=== PATIENT | female | born 2000 | race Hispanic/Latino ===

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

== ENCOUNTER 2023-07-09 13:21 | Day surgery (SDC) | payer OTHER ==
--- OUTSIDE RECORDS SUMMARY | 2023-07-09 13:26 | XMS REPORT | Continuity of Care Document ---
Author Name Unknown Address [address] [facility] [address] [place] [address] [facility] thconnect Address [address] [facility] [address] [place] [address] Care Team Providers Care Manufacturing Business Analyst Name Role Phone Pcp, Patient Does Not Have A Primary Care Physic jt SPRING NEWMAN Attending Clinician Unavailable Domonique Lerma RN Attending Clinician Unavailable Spring Newman MD Attending Clinician [phone] Doctor Unassigned, Mildred Attending Clinician U darleen Neely MD, Jim Baxter Attending Clinician + [phone] Walker Lopez MD Attending Clinician [phone] Tito Malone CRNA Attending Clinician + [phone], [facility] Attending Clinician Unavailable Emma Hu NP Attending Clinician + [phone] EZRA GOYAL Attending Clinician Unavailable EZRA GOYAL Attending Clinician Unavailable Ultrasound, Ang-Mfm Attending Clinician Unavaila ble Lab, Ang - Db Attending Clinician Unavailable Dcikson Leslie Attending Clinician [phone] LISBETH SANTANA Attending Clinician Unavaila Lisbeth Joseph Attending Clinician [phone] Deon Morales Attending Clinician [phone] DICKSON ANTOINE Attending Clinician Unavailable SPRING NEWMAN Admitting Clinician Unavailable Spring Newman MD Admitting Clinician Payers Payer Name Policy Type Policy Number Effective Date Expirati on Date Source Problems Condition Name Condition Details Condition Category Status Onset Date Resolution Date Last Treatment Date Treating Clinician Comments Source Liveborn infant, of serrano , born in hospital by delivery Liveborn infant, of serrano , born in hospital by delivery Disease Active 2022-04 2-16 00:00: 00 [facility] Encounter for elective induction of labor Encounter for elective induction of labor Disease Active 2022-04 2-15 00:00: 00 [facility] 39 weeks gestation of 39 weeks gestation of Disease Active 2022-04 2-15 00:00: 00 [facility] History of herpes genitalis History of herpes genitalis Disease Active 2022-04 2-15 00:00: 00 [facility] 16 weeks gestation of 16 weeks gestation of Disease Active 7-11 00:00: 00 [facility] Obesity (BMI 30-39.9) Obesity (BMI 30-39.9) Disease Active 6-13 00:00: 00 [facility] No known active problems No known active problems Disease [facility] Genital herpes Genital herpes Disease Active [facility] Allergies, Adverse Reactions, Alerts Allergy Name Allergy Type Status Severity Reaction(s) Onset Date Inactive Date Treating Clinician Comments Source NO KNOWN ALLERGIE S Drug Class Active [facility] Social History Social Habit Start Date Stop Date Quantity Comments Source ASSERTION 2022-07-09 00:00:00 [facility] Gender identity [facility] SDOH Alcohol Comment [facility] History of Social function 2023-05-06 00:00:00 2023-05-06 00:00:00 [facility] Alcohol intake 2023-04-15 00:00:00 2023-04-15 00:00:00 .57 /d [facility] Exposure to SARS-CoV-2 (event) 2022-08-15 00:00:00 2022-08-25 14:48:00 Not sure [facility] Tobacco use and exposure 2022-08-25 00:00:00 2022-08-25 00:00:00 Smokeless tobacco non-user [facility] History SDOH Alcohol Frequency 2020-04-24 00:00:00 2020-04-24 00:00:00 2 [facility] History SDOH Alcohol Std Drinks 2020-04-24 00:00:00 2020-04-24 00:00:00 1 [facility] History SDOH Alcohol Binge 2020-04-24 00:00:00 2020-04-24 00:00:00 99 [facility] Sex Assigned At 2002 00:00:00 2000 00:00:00 [facility] Smoking Status Start Date Stop Date Source Never smoked tobacco [facility] Medications Ordered Medication Name Filled Medication Name Start Date Stop Date Current Medication? Ordering Clinician Indication Dosage Frequency Signature (SIG) Comments Components Source etonogestre L (NEXPLANON) implant 68 mg 05-07 00:15: 00 05-06 23:25 :00 No [id number] 68mg [facility] etonogestre L (NEXPLANON) implant 68 mg 05-07 00:15: 00 05-06 23:25 :00 No [id number] 68mg 68 mg, Subdermal, ONCE NOW, 1 dose, On Tue05/06/23 at 1815, Routine
Use approved by: PROCESS ARCHITECT [facility] ibuprofen (IBU) tablet 600 mg 2022-04 20:00: 00 Yes 600mg 600 mg, Oral, Q6H, First dose on 03/27/23 at 1400, Until Discontinu ed, Routine [facility] ibuprofen (IBU) tablet 600 mg 2022-04 20:00: 00 Yes 600mg 600 mg, Oral, Q6H, First dose on 03/27/23 at 1400, Until Discontinu ed, Routine [facility] HYDROcodone -acetaminop hen (NORCO 5) 5-325 mg tablet 2 tablet 2022-04 18:00: 00 Yes 2{tbl} 2 tablet, Oral, Q6HPRN, Starting on Tue03/27/23 at 1200, Until Discontinu ed, Routine, Pain (scale 7-10), Alternate with Ibuprofen [facility] HYDROcodone -acetaminop hen (NORCO 5) 5-325 mg tablet 1 tablet 2022-04 18:00: 00 Yes 1{tbl} 1 tablet, Oral, Q6HPRN, Starting on Tue03/27/23 at 1200, Until Discontinu ed, Routine, Pain (scale 4-6), Alternate with Ibuprofen [facility] HYDROcodone -acetaminop hen (NORCO 5) 5-325 mg tablet 2 tablet 2022-04 18:00: 00 Yes 2{tbl} 2 tablet, Oral, Q6HPRN, Starting on Tue03/27/23 at 1200, Until Discontinu ed, Routine, Pain (scale 7-10), Alternate with Ibuprofen [facility] HYDROcodone -acetaminop hen (NORCO 5) 5-325 mg tablet 1 tablet 2022-04 18:00: 00 Yes 1{tbl} 1 tablet, Oral, Q6HPRN, Starting on Tue03/27/23 at 1200, Until Discontinu ed, Routine, Pain (scale 4-6), Alternate with Ibuprofen [facility] ketorolac (TORADOL) injection 30 mg 2022-04 02:00: 00 03-27 12:46 :00 No 30mg 30 mg, Slow IV Push, Q6H, 3 doses, First dose on 03/26/23 at 2000, Last dose on 03/27/23 at 0600, Routine [facility] gabapentin 300 mg capsule 2022-04 00:00: 00 Yes [id number] 300mg Take 1 capsule by mouth in the morning and 1 capsule at noon and 1 capsule in the evening. [facility] ibuprofen 600 mg tablet 2022-04 00:00: 00 Yes [id number] 600mg Take 1 tablet by mouth every 6 (six) hours. [facility] vitamin w/FA tablet 2022-04 00:00: 00 Yes [id number] 1{tbl} Take 1 tablet by mouth in the morning. [facility] docusate 100 mg capsule 2022-04 00:00: 00 Yes [id number] 200mg Take 2 capsules by mouth once daily as needed for Constipati on. [facility] ferrous sulfate 325 mg (65 mg iron) tablet 2022-04 00:00: 00 Yes [id number] 325mg Take 1 tablet by mouth in the morning and 1 tablet in the evening. [facility] gabapentin 300 mg capsule 2022-04 00:00: 00 Yes [id number] 300mg Take 1 capsule by mouth in the morning and 1 capsule at noon and 1 capsule in the evening. [facility] ibuprofen 600 mg tablet 2022-04 00:00: 00 Yes [id number] 600mg Take 1 tablet by mouth every 6 (six) hours. [facility] vitamin w/FA tablet 2022-04 00:00: 00 Yes [id number] 1{tbl} Take 1 tablet by mouth in the morning. [facility] docusate 100 mg capsule 2022-04 00:00: 00 Yes [id number] 200mg Take 2 capsules by mouth once daily as needed for Constipati on. [facility] ferrous sulfate 325 mg (65 mg iron) tablet 2022-04 00:00: 00 Yes [id number] 325mg Take 1 tablet by mouth in the morning and 1 tablet in the evening. [facility] gabapentin 300 mg capsule 2022-04 00:00: 00 Yes [id number] 300mg Take 1 capsule by mouth in the morning and 1 capsule at noon and 1 capsule in the evening. [facility] ibuprofen 600 mg tablet 2022-04 00:00: 00 Yes [id number] 600mg Take 1 tablet by mouth every 6 (six) hours. [facility] vitamin w/FA tablet 2022-04 00:00: 00 Yes [id number] 1{tbl} Take 1 tablet by mouth in the morning. [facility] docusate 100 mg capsule 2022-04 00:00: 00 Yes [id number] 200mg Take 2 capsules by mouth once daily as needed for Constipati on. [facility] ferrous sulfate 325 mg (65 mg iron) tablet 2022-04 00:00: 00 Yes [id number] 325mg Take 1 tablet by mouth in the morning and 1 tablet in the evening. [facility] gabapentin 300 mg capsule 2022-04 00:00: 00 Yes [id number] 300mg Take 1 capsule by mouth in the morning and 1 capsule at noon and 1 capsule in the evening. [facility] ibuprofen 600 mg tablet 2022-04 00:00: 00 Yes [id number] 600mg Take 1 tablet by mouth every 6 (six) hours. [facility] vitamin w/FA tablet 2022-04 00:00: 00 Yes [id number] 1{tbl} Take 1 tablet by mouth in the morning. [facility] docusate 100 mg capsule 2022-04 00:00: 00 Yes [id number] 200mg Take 2 capsules by mouth once daily as needed for Constipati on. [facility] ferrous sulfate 325 mg (65 mg iron) tablet 2022-04 00:00: 00 Yes [id number] 325mg Take 1 tablet by mouth in the morning and 1 tablet in the evening. [facility] gabapentin 300 mg capsule 2022-04 00:00: 00 Yes [id number] 300mg Take 1 capsule by mouth in the morning and 1 capsule at noon and 1 capsule in the evening. [facility] ibuprofen 600 mg tablet 2022-04 00:00: 00 Yes [id number] 600mg Take 1 tablet by mouth every 6 (six) hours. [facility] vitamin w/FA tablet 2022-04 00:00: 00 Yes [id number] 1{tbl} Take 1 tablet by mouth in the morning. [facility] docusate 100 mg capsule 2022-04 00:00: 00 Yes [id number] 200mg Take 2 capsules by mouth once daily as needed for Constipati on. [facility] ferrous sulfate 325 mg (65 mg iron) tablet 2022-04 00:00: 00 Yes [id number] 325mg Take 1 tablet by mouth in the morning and 1 tablet in the evening. [facility] gabapentin 300 mg capsule 2022-04 00:00: 00 Yes [id number] 300mg Take 1 capsule by mouth in the morning and 1 capsule at noon and 1 capsule in the evening. [facility] ibuprofen 600 mg tablet 2022-04 00:00: 00 Yes [id number] 600mg Take 1 tablet by mouth every 6 (six) hours. [facility] vitamin w/FA tablet 2022-04 00:00: 00 Yes [id number] 1{tbl} Take 1 tablet by mouth in the morning. [facility] docusate 100 mg capsule 2022-04 00:00: 00 Yes [id number] 200mg Take 2 capsules by mouth once daily as needed for Constipati on. [facility] ferrous sulfate 325 mg (65 mg iron) tablet 2022-04 00:00: 00 Yes [id number] 325mg Take 1 tablet by mouth in the morning and 1 tablet in the evening. [facility] gabapentin 300 mg capsule 2022-04 00:00: 00 Yes [id number] 300mg Take 1 capsule by mouth in the morning and 1 capsule at noon and 1 capsule in the evening. [facility] ibuprofen 600 mg tablet 2022-04 00:00: 00 Yes [id number] 600mg Take 1 tablet by mouth every 6 (six) hours. [facility] vitamin w/FA tablet 2022-04 00:00: 00 Yes [id number] 1{tbl} Take 1 tablet by mouth in the morning. [facility] docusate 100 mg capsule 2022-04 00:00: 00 Yes [id number] 200mg Take 2 capsules by mouth once daily as needed for Constipati on. [facility] ferrous sulfate 325 mg (65 mg iron) tablet 2022-04 00:00: 00 Yes [id number] 325mg Take 1 tablet by mouth in the morning and 1 tablet in the evening. [facility] gabapentin 300 mg capsule 2022-04 00:00: 00 Yes [id number] 300mg Take 1 capsule by mouth in the morning and 1 capsule at noon and 1 capsule in the evening. [facility] ibuprofen 600 mg tablet 2022-04 00:00: 00 Yes [id number] 600mg Take 1 tablet by mouth every 6 (six) hours. [facility] vitamin w/FA tablet 2022-04 00:00: 00 Yes [id number] 1{tbl} Take 1 tablet by mouth in the morning. [facility] docusate 100 mg capsule 2022-04 00:00: 00 Yes [id number] 200mg Take 2 capsules by mouth once daily as needed for Constipati on. [facility] ferrous sulfate 325 mg (65 mg iron) tablet 2022-04 00:00: 00 Yes [id number] 325mg Take 1 tablet by mouth in the morning and 1 tablet in the evening. [facility] HYDROcodone -acetaminop hen 5-325 mg tablet 2022-04 00:00: 00 04-04 05:59 :00 No [id number] 1{tbl} Take 1 tablet by mouth every 6 (six) hours as needed for Pain (scale 4-6) (Alternate with Ibuprofen) for up to 7 days. Indication s: acute pain [facility] HYDROcodone -acetaminop hen 5-325 mg tablet 2022-04 00:00: 00 04-04 05:59 :00 No [id number] 1{tbl} Take 1 tablet by mouth every 6 (six) hours as needed for Pain (scale 4-6) (Alternate with Ibuprofen) for up to 7 days. Indication s: acute pain [facility] HYDROcodone -acetaminop hen 5-325 mg tablet 2022-04 00:00: 00 04-04 05:59 :00 No [id number] 1{tbl} Take 1 tablet by mouth every 6 (six) hours as needed for Pain (scale 4-6) (Alternate with Ibuprofen) for up to 7 days. Indication s: acute pain [facility] HYDROcodone -acetaminop hen 5-325 mg tablet 2022-04 00:00: 00 04-04 05:59 :00 No [id number] 1{tbl} Take 1 tablet by mouth every 6 (six) hours as needed for Pain (scale 4-6) (Alternate with Ibuprofen) for up to 7 days. Indication s: acute pain [facility] acetaminoph en (TYLENOL) tablet 650 mg 2022-04 00:00: 00 03-27 12:46 :00 No 650mg 650 mg, Oral, Q6H, 3 doses, First dose on 03/26/23 at 1800, Last dose on Tue03/27/23 at 0600, Routine [facility] gabapentin (NEURONTIN) capsule 300 mg 2022-04 20:00: 00 Yes 300mg 300 mg, Oral, TID, First dose on 03/26/23 at 1400, Until Discontinu ed, Routine [facility] gabapentin (NEURONTIN) capsule 300 mg 2022-04 20:00: 00 Yes 300mg 300 mg, Oral, TID, First dose on 03/26/23 at 1400, Until Discontinu ed, Routine [facility] lactated ringers IV infusion 1,000 mL 2022-04 19:15: 00 03-26 18:40 :22 No 1000mL at 125 mL/hr, 1,000 mL, IV Infusion, ONCE, 1 dose, On 03/26/23 at 1315, Routine [facility] diphenhydrA MINE (BENADRYL) injection 25 mg 2022-04 18:27: 47 Yes 25mg 25 mg, Slow IV Push, Q6HPRN, Starting on 03/26/23 at 1227, Until Discontinu ed, Routine, Itching [facility] diphenhydrA MINE (BENADRYL) tablet 25 mg 2022-04 18:27: 47 Yes 25mg 25 mg, Oral, Q6HPRN, Starting on 03/26/23 at 1227, Until Discontinu ed, Routine, Sleep, Itching [facility] diphenhydrA MINE (BENADRYL) injection 25 mg 2022-04 18:27: 47 Yes 25mg 25 mg, Slow IV Push, Q6HPRN, Starting on 03/26/23 at 1227, Until Discontinu ed, Routine, Itching [facility] diphenhydrA MINE (BENADRYL) tablet 25 mg 2022-04 18:27: 47 Yes 25mg 25 mg, Oral, Q6HPRN, Starting on 03/26/23 at 1227, Until Discontinu ed, Routine, Sleep, Itching [facility] ondansetron (ZOFRAN (PF)) injection 4 mg 2022-04 18:27: 46 Yes 4mg 4 mg, Slow IV Push, Q8HPRN, Starting on 03/26/23 at 1227, Until Discontinu ed, Routine, Nausea and Vomiting (N/V) [facility] bisacodyL (DULCOLAX) suppository 10 mg 2022-04 18:27: 46 Yes 10mg 10 mg, Rectal, QDAILYPRN, Starting on 03/26/23 at 1227, Until Discontinu ed, Routine, Constipati on [facility] simethicone (GAS RELIEF (SIMETHICON E)) chewable tablet 160 mg 2022-04 18:27: 46 Yes 160mg 160 mg, Oral, PC+HSPRN, Starting on 03/26/23 at 1227, Until Discontinu ed, Routine, Gas [facility] docusate (COLACE) capsule 200 mg 2022-04 18:27: 46 Yes 200mg 200 mg, Oral, QDAILYPRN, Starting on 03/26/23 at 1227, Until Discontinu ed, Routine, Constipati on [facility] magnesium hydroxide (MILK OF MAGNESIA) 400 mg/5 mL suspension 30 mL 2022-04 18:27: 46 Yes 30mL 30 mL, Oral, QDAILYPRN, Starting on 03/26/23 at 1227, Until Discontinu ed, Routine, Constipati on [facility] lactated ringers IV infusion 1,000 mL 2022-04 18:27: 46 Yes 1000mL at 125 mL/hr, 1,000 mL, IV Infusion, PRN, 1 dose, Starting on 03/26/23 at 1227, Until Discontinu ed, Routine [facility] ondansetron (ZOFRAN (PF)) injection 4 mg 2022-04 18:27: 46 Yes 4mg 4 mg, Slow IV Push, Q8HPRN, Starting on 03/26/23 at 1227, Until Discontinu ed, Routine, Nausea and Vomiting (N/V) [facility] bisacodyL (DULCOLAX) suppository 10 mg 2022-04 18:27: 46 Yes 10mg 10 mg, Rectal, QDAILYPRN, Starting on 03/26/23 at 1227, Until Discontinu ed, Routine, Constipati on [facility] simethicone (GAS RELIEF (SIMETHICON E)) chewable tablet 160 mg 2022-04 18:27: 46 Yes 160mg 160 mg, Oral, PC+HSPRN, Starting on 03/26/23 at 1227, Until Discontinu ed, Routine, Gas [facility] docusate (COLACE) capsule 200 mg 2022-04 18:27: 46 Yes 200mg 200 mg, Oral, QDAILYPRN, Starting on 03/26/23 at 1227, Until Discontinu ed, Routine, Constipati on [facility] magnesium hydroxide (MILK OF MAGNESIA) 400 mg/5 mL suspension 30 mL 2022-04 18:27: 46 Yes 30mL 30 mL, Oral, QDAILYPRN, Starting on 03/26/23 at 1227, Until Discontinu ed, Routine, Constipati on [facility] lactated ringers IV infusion 1,000 mL 2022-04 18:27: 46 Yes 1000mL at 125 mL/hr, 1,000 mL, IV Infusion, PRN, 1 dose, Starting on 03/26/23 at 1227, Until Discontinu ed, Routine [facility] ketorolac (TORADOL) injection 2022-04 18:14: 00 03-26 18:26 :12 No Slow IV Push, ONCE INTRA PROCEDURE, Starting on 03/26/23 at 1214, Until 03/26/23 at 1226, Routine, Intra-op [facility] sodium chloride 0.9 % irrigation solution 2022-04 17:55: 00 Yes PRN, Starting on 03/26/23 at 1155, Until Discontinu ed, Intra-op [facility] sodium chloride 0.9 % irrigation solution 2022-04 17:55: 00 Yes PRN, Starting on 03/26/23 at 1155, Until Discontinu ed, Intra-op [facility] acetaminoph en ADULT (OFIRMEV) injection 2022-04 17:49: 00 03-26 18:26 :12 No IV Infusion, Administer over 15 Minutes, ONCE INTRA PROCEDURE, Starting on 03/26/23 at 1149, Until Discontinu ed, Routine, Intra-op [facility] methylergon ovine (METHERGINE ) injection 2022-04 17:45: 00 03-26 18:26 :12 No Intramuscu lar, ONCE INTRA PROCEDURE, Starting on 03/26/23 at 1145, Until Discontinu ed, Routine, Intra-op [facility] morpHINE PF (DURAMORPH- PF) injection 2022-04 17:43: 00 03-26 18:26 :12 No Intratheca l, ONCE INTRA PROCEDURE, Starting on 03/26/23 at 1143, Until Discontinu ed, Routine, Intra-op [facility] ampicillin (POLYCILLIN -N) injection 2022-04 17:32: 00 03-26 18:26 :12 No IV Piggyback, ONCE INTRA PROCEDURE, Starting on 03/26/23 at 1132, Until Discontinu ed, WING, Intra-op [facility] clindamycin in 5 % dextrose (CLEOCIN) 900 mg/50 mL IV piggyback RTU 900 mg 2022-04 17:30: 00 03-26 17:25 :00 No 900mg 900 mg, IV Piggyback, ONCE, 1 dose, On 03/26/23 at 1130, Administer over 30 Minutes, 50 mL
Reas on for Anti-Infec tive: Surgical Prophylaxi s
Surgi yocasta Prophylaxi s: PROCESS ARCHITECT
Duration of therapy: within 24 hours of surgery
Restricte d use approved by: PROCESS ARCHITECT FACULTY
in flight crew member approving Restricted medication : [place]EM[place] [facility]ha [facility] clindamycin in 5 % dextrose (CLEOCIN) 900 mg/50 mL IV piggyback RTU 2022-04 17:19: 00 03-26 18:26 :12 No IV Piggyback, ONCE INTRA PROCEDURE, Starting on 03/26/23 at 1119, Until Discontinu ed, Administer over 30 Minutes, Intra-op [facility] PHENYLephri ne 1000 mcg/10 mL in 0.9% NaCl syringe 2022-04 17:12: 00 03-26 18:26 :12 No Slow IV Push, CONTINUOUS PRN, Starting on 03/26/23 at 1112, Until Discontinu ed, Routine, Intra-op [facility] lactated ringers IV infusion 2022-04 17:03: 00 03-26 18:26 :12 No IV Infusion, CONTINUOUS PRN, Starting on 03/26/23 at 1103, Until Discontinu ed, Routine, Intra-op [facility] lidocaine-e pinephrine (XYLOCAINE W/EPINEPHRI NE) 2 %-1:200,000 injection 2022-04 17:01: 00 03-26 18:26 :12 No Intravenou s, ONCE INTRA PROCEDURE, Starting on 03/26/23 at 1101, Until Discontinu ed, Routine, Intra-op [facility] gentamicin 340 mg in NaCl 0.9% (NS) 250 mL IV infusion 2022-04 13:00: 00 03-26 18:35 :25 No 5mg/kg 340 mg (5 mg/kg ?68 kg Adjusted weight), IV Infusion, Q24H ABX, 2 doses, First dose on 03/26/23 at 0700, Last dose on Tue03/27/23 at 0700, Administer over 60 Minutes, 250 mL
Reas on for Anti-Infec tive: Documented Infection< br>Documen hector Infection Site: Other
O ther site: Uterine
Duration of Therapy: Other (see Comments) [facility] ampicillin (POLYCILLIN -N) 2,000 mg in NaCl 0.9% (NS) 100 mL MINI-BAG 2022-04 12:30: 00 03-26 18:35 :25 No 2g 2,000 mg (2 g), IV Piggyback, Q6H ABX, First dose on 03/26/23 at 0630, Until Discontinu ed, Administer over 30 Minutes, 100 mL
Reas on for Anti-Infec tive: Documented Infection< br>Documen hector Infection Site: Other
O ther site: uterine
Duration of Therapy: Other (see Comments) [facility] acetaminoph en (TYLENOL) tablet 1,000 mg 2022-04 11:31: 42 03-26 18:35 :23 No 1000mg 1,000 mg, Oral, Q6HPRN, Starting on 03/26/23 at 0531, Until 03/26/23 at 1235, Routine, Temp > 38 C [facility] naloxone (NARCAN) injection 0.2 mg 2022-04 07:32: 30 03-26 18:35 :23 No .2mg 0.2 mg, Intramuscu lar, Q6HPRN, 4 doses, Starting on 03/26/23 at 0132, Until 03/26/23 at 1235, Routine, Itching [facility] FENTanyl PF (SUBLIMAZE (PF)) injection 2022-04 05:05: 00 03-26 18:26 :12 No Epidural, ONCE INTRA PROCEDURE, Starting on Tue03/25/23 at 2305, Until Discontinu ed, Routine, Intra-op [facility] bupivacaine (preserv free) (SENSORCAIN E MPF) 0.25 % (2.5 mg/mL) injection 2022-04 05:05: 00 03-26 18:26 :12 No Epidural, ONCE INTRA PROCEDURE, Starting on Tue03/25/23 at 2305, Until Discontinu ed, Routine, Intra-op [facility] lidocaine-e pinephrine (XYLOCAINE W/EPINEPHRI NE) 1.5 %-1:200,000 injection 2022-04 02:01: 00 03-26 18:26 :12 No Epidural, ONCE INTRA PROCEDURE, Starting on Tue03/25/23 at 2000, Until Discontinu ed, Routine, Intra-op [facility] PIB fentaNYL-ro pivacaine 2 mcg/mL-0.1 % (PF) in NS 200 mL epidural infusion RTU 2022-04 01:57: 00 03-26 18:26 :12 No Epidural, ONCE INTRA PROCEDURE, Starting on Tue03/25/23 at 1957, Until Discontinu ed, Routine, Intra-op [facility] fentaNYL-ro pivacaine 2 mcg/mL-0.1 % (PF) in NS 200 mL epidural infusion RTU 2022-04 01:57: 00 03-26 18:26 :12 No Epidural, CONTINUOUS PRN, Starting on Tue03/25/23 at 1957, Until Discontinu ed, Routine, Intra-op [facility] misoprostol (CYTOTEC) quarter-tab let 25 mcg 2022-04 06:15: 00 03-25 06:56 :00 No 25ug 25 mcg, Oral, ONCE, 1 dose, On Tue03/25/23 at 0015, Routine [facility] oxytocin (PITOCIN) 30 units in NS 500 mL IV infusion 2022-04 06:09: 07 03-26 17:43 :00 No 600mL/h 600 mL/hr, IV Infusion, PRN, PPH, Starting on Tue03/25/23 at 0009, For 1 dose
As instructed by physician at bedside.<b r> [facility] misoprostol (CYTOTEC) quarter-tab let 25 mcg 2022-04 06:09: 07 03-26 18:35 :23 No 25ug 25 mcg, Vaginal, Q4HPRN, Starting on Tue03/25/23 at 0009, Until 03/26/23 at 1235, Routine, cervical ripening [facility] FENTanyl PF (SUBLIMAZE (PF)) injection 100 mcg 2022-04 06:09: 07 03-26 18:35 :23 No 100ug 100 mcg, Slow IV Push, Q1HPRN, Starting on Tue03/25/23 at 0009, Until 03/26/23 at 1235, Routine, Pain (scale 4-6), Pain (scale 7-10) [facility] oxytocin (PITOCIN) 30 units in NS 500 mL IV infusion 2022-04 06:09: 07 03-26 18:35 :23 No 2mU/min at 2-40 mL/hr, IV Infusion, TITRATE, Starting on Tue03/25/23 at 0009, Until 03/26/23 at 1235, Routine [facility] [id number] IV infusion 1,000 mL 2022-04 06:09: 07 03-26 18:35 :23 No 1000mL at 1-125 mL/hr, IV Infusion, TITRATE, Starting on Tue03/25/23 at 0009, Until 03/26/23 at 1235, Routine [facility] valACYclovi r (VALTREX) 1 gram tablet 2022-04 00:00: 00 Yes [id number] 1g Take 1 tablet by mouth in the morning. [facility] valACYclovi r (VALTREX) 1 gram tablet 2022-04 00:00: 00 Yes [id number] 1g Take 1 tablet by mouth in the morning. [facility] valACYclovi r (VALTREX) 1 gram tablet 2022-04 00:00: 00 Yes [id number] 1g Take 1 tablet by mouth in the morning. [facility] valACYclovi r (VALTREX) 1 gram tablet 2022-04 00:00: 00 Yes [id number] 1g Take 1 tablet by mouth in the morning. [facility] valACYclovi r (VALTREX) 1 gram tablet 2022-04 00:00: 00 Yes [id number] 1g Take 1 tablet by mouth in the morning. [facility] valACYclovi r (VALTREX) 1 gram tablet 2022-04 00:00: 00 Yes [id number] 1g Take 1 tablet by mouth in the morning. [facility] valACYclovi r (VALTREX) 1 gram tablet 2022-04 00:00: 00 Yes [id number] 1g Take 1 tablet by mouth in the morning. [facility] valACYclovi r (VALTREX) 1 gram tablet 2022-04 00:00: 00 Yes [id number] 1g Take 1 tablet by mouth in the morning. [facility] valACYclovi r (VALTREX) 1 gram tablet 2022-04 00:00: 00 Yes [id number] 1g Take 1 tablet by mouth in the morning. [facility] valACYclovi r (VALTREX) 1 gram tablet 2022-04 00:00: 00 Yes [id number] 1g Take 1 tablet by mouth in the morning. [facility] valACYclovi r (VALTREX) 1 gram tablet 2022-04 00:00: 00 Yes [id number] 1g Take 1 tablet by mouth in the morning. [facility] valACYclovi r (VALTREX) 1 gram tablet 2022-04 00:00: 00 Yes [id number] 1g Take 1 tablet by mouth in the morning. [facility] valACYclovi r (VALTREX) 1 gram tablet 2022-04 00:00: 00 Yes [id number] 1g Take 1 tablet by mouth in the morning. [facility] valACYclovi r (VALTREX) 1 gram tablet 2022-04 00:00: 00 Yes [id number] 1g Take 1 tablet by mouth in the morning. [facility] valACYclovi r (VALTREX) 1 gram tablet 2022-04 00:00: 00 Yes [id number] 1g Take 1 tablet by mouth in the morning. [facility] valACYclovi r (VALTREX) 1 gram tablet 2022-04 00:00: 00 Yes [id number] 1g Take 1 tablet by mouth in the morning. [facility] ferrous sulfate 325 mg (65 mg iron) tablet 01-07 00:00: 00 Yes [id number] 325mg Take 1 tablet by mouth in the morning. [facility] ferrous sulfate 325 mg (65 mg iron) tablet 01-07 00:00: 00 Yes [id number] 325mg Take 1 tablet by mouth in the morning. [facility] ferrous sulfate 325 mg (65 mg iron) tablet 01-07 00:00: 00 Yes [id number] 325mg Take 1 tablet by mouth in the morning. [facility] ferrous sulfate 325 mg (65 mg iron) tablet 01-07 00:00: 00 Yes [id number] 325mg Take 1 tablet by mouth in the morning. [facility] ferrous sulfate 325 mg (65 mg iron) tablet 01-07 00:00: 00 Yes [id number] 325mg Take 1 tablet by mouth in the morning. [facility] ferrous sulfate 325 mg (65 mg iron) tablet 01-07 00:00: 00 Yes [id number] 325mg Take 1 tablet by mouth in the morning. [facility] ferrous sulfate 325 mg (65 mg iron) tablet 0 01-07 00:00: 00 Yes [id number] 325mg Take 1 tablet by mouth in the morning. [facility] ferrous sulfate 325 mg (65 mg iron) tablet 0 01-07 00:00: 00 Yes [id number] 325mg Take 1 tablet by mouth in the morning. [facility] ferrous sulfate 325 mg (65 mg iron) tablet 01-07 00:00: 00 Yes [id number] 325mg Take 1 tablet by mouth in the morning. [facility] ferrous sulfate 325 mg (65 mg iron) tablet 0 01-07 00:00: 00 Yes [id number] 325mg Take 1 tablet by mouth in the morning. [facility] ferrous sulfate 325 mg (65 mg iron) tablet 0 01-07 00:00: 00 Yes [id number] 325mg Take 1 tablet by mouth in the morning. [facility] ferrous sulfate 325 mg (65 mg iron) tablet 01-07 00:00: 00 03-27 00:00 :00 No [id number] 325mg Take 1 tablet by mouth in the morning. [facility] ferrous sulfate 325 mg (65 mg iron) tablet 01-07 00:00: 00 03-27 00:00 :00 No [id number] 325mg Take 1 tablet by mouth in the morning. [facility] metroNIDAZO LE 500 mg tablet 0 08-27 00:00: 00 Yes [id number] 500mg Take 1 tablet by mouth every 12 (twelve) hours. [facility] metroNIDAZO LE 500 mg tablet 0 08-27 00:00: 00 Yes [id number] 500mg Take 1 tablet by mouth every 12 (twelve) hours. [facility] cephALEXin 500 mg capsule 2022-0 19 00:00: 00 Yes [id number] 500mg Take 1 capsule by mouth in the morning and 1 capsule in the evening. [facility] metroNIDAZO LE 500 mg tablet 0 08-27 00:00: 00 Yes [id number] 500mg Take 1 tablet by mouth every 12 (twelve) hours. [facility] cephALEXin 500 mg capsule 2022-0 19 00:00: 00 Yes [id number] 500mg Take 1 capsule by mouth in the morning and 1 capsule in the evening. [facility] metroNIDAZO LE 500 mg tablet 2022-0 -19 00:00: 00 Yes [id number] 500mg Take 1 tablet by mouth every 12 (twelve) hours. [facility] cephALEXin 500 mg capsule 2022-0 -19 00:00: 00 Yes [id number] 500mg Take 1 capsule by mouth in the morning and 1 capsule in the evening. [facility] metroNIDAZO LE 500 mg tablet 3-0 5-19 00:00: 00 Yes [id number] 500mg Take 1 tablet by mouth every 12 (twelve) hours. [facility] cephALEXin 500 mg capsule 3-0 5-19 00:00: 00 Yes [id number] 500mg Take 1 capsule by mouth in the morning and 1 capsule in the evening. [facility] metroNIDAZO LE 500 mg tablet 2022-0 5-19 00:00: 00 Yes [id number] 500mg Take 1 tablet by mouth every 12 (twelve) hours. [facility] cephALEXin 500 mg capsule 2022-0 5-19 00:00: 00 Yes [id number] 500mg Take 1 capsule by mouth in the morning and 1 capsule in the evening. [facility] metroNIDAZO LE 500 mg tablet 2022-0 5-19 00:00: 00 Yes [id number] 500mg Take 1 tablet by mouth every 12 (twelve) hours. [facility] cephALEXin 500 mg capsule 2022-0 -19 00:00: 00 Yes [id number] 500mg Take 1 capsule by mouth in the morning and 1 capsule in the evening. [facility] metroNIDAZO LE 500 mg tablet 2022-0 -19 00:00: 00 Yes [id number] 500mg Take 1 tablet by mouth every 12 (twelve) hours. [facility] cephALEXin 500 mg capsule 2022-0 -19 00:00: 00 Yes [id number] 500mg Take 1 capsule by mouth in the morning and 1 capsule in the evening. [facility] metroNIDAZO LE 500 mg tablet 2022-0 -19 00:00: 00 10-19 00:00 :00 No [id number] 500mg Take 1 tablet by mouth every 12 (twelve) hours. [facility] cephALEXin 500 mg capsule 2022-0 -19 00:00: 00 10-19 00:00 :00 No [id number] 500mg Take 1 capsule by mouth in the morning and 1 capsule in the evening. [facility] proMETHazin e 25 mg tablet 2022-0 -17 00:00: 00 Yes [id number] 25mg Take 1 tablet by mouth every 4 (four) hours as needed for Nausea and Vomiting (N/V). [facility] proMETHazin e 25 mg tablet 2023-0 5-17 00:00: 00 Yes [id number] 25mg Take 1 tablet by mouth every 4 (four) hours as needed for Nausea and Vomiting (N/V). [facility] proMETHazin e 25 mg tablet 2023-0 5-17 00:00: 00 Yes [id number] 25mg Take 1 tablet by mouth every 4 (four) hours as needed for Nausea and Vomiting (N/V). [facility] proMETHazin e 25 mg tablet 3-0 5-17 00:00: 00 Yes [id number] 25mg Take 1 tablet by mouth every 4 (four) hours as needed for Nausea and Vomiting (N/V). [facility] proMETHazin e 25 mg tablet 3-0 5-17 00:00: 00 Yes [id number] 25mg Take 1 tablet by mouth every 4 (four) hours as needed for Nausea and Vomiting (N/V). [facility] proMETHazin e 25 mg tablet 3-0 5-17 00:00: 00 Yes [id number] 25mg Take 1 tablet by mouth every 4 (four) hours as needed for Nausea and Vomiting (N/V). [facility] proMETHazin e 25 mg tablet 2023-0 5-17 00:00: 00 Yes [id number] 25mg Take 1 tablet by mouth every 4 (four) hours as needed for Nausea and Vomiting (N/V). [facility] proMETHazin e 25 mg tablet 2023-0 5-17 00:00: 00 Yes [id number] 25mg Take 1 tablet by mouth every 4 (four) hours as needed for Nausea and Vomiting (N/V). [facility] proMETHazin e 25 mg tablet 2023-0 5-17 00:00: 00 Yes [id number] 25mg Take 1 tablet by mouth every 4 (four) hours as needed for Nausea and Vomiting (N/V). [facility] proMETHazin e 25 mg tablet 2023-0 5-17 00:00: 00 Yes [id number] 25mg Take 1 tablet by mouth every 4 (four) hours as needed for Nausea and Vomiting (N/V). [facility] proMETHazin e 25 mg tablet 3-0 5-17 00:00: 00 Yes [id number] 25mg Take 1 tablet by mouth every 4 (four) hours as needed for Nausea and Vomiting (N/V). [facility] proMETHazin e 25 mg tablet 2023-0 5-17 00:00: 00 Yes [id number] 25mg Take 1 tablet by mouth every 4 (four) hours as needed for Nausea and Vomiting (N/V). [facility] proMETHazin e 25 mg tablet 3-0 5-17 00:00: 00 Yes [id number] 25mg Take 1 tablet by mouth every 4 (four) hours as needed for Nausea and Vomiting (N/V). [facility] proMETHazin e 25 mg tablet 3-0 5-17 00:00: 00 Yes [id number] 25mg Take 1 tablet by mouth every 4 (four) hours as needed for Nausea and Vomiting (N/V). [facility] proMETHazin e 25 mg tablet 3-0 5-17 00:00: 00 Yes [id number] 25mg Take 1 tablet by mouth every 4 (four) hours as needed for Nausea and Vomiting (N/V). [facility] proMETHazin e 25 mg tablet 3-0 5-17 00:00: 00 Yes [id number] 25mg Take 1 tablet by mouth every 4 (four) hours as needed for Nausea and Vomiting (N/V). [facility] proMETHazin e 25 mg tablet 2023-0 5-17 00:00: 00 Yes [id number] 25mg Take 1 tablet by mouth every 4 (four) hours as needed for Nausea and Vomiting (N/V). [facility] proMETHazin e 25 mg tablet 2023-0 5-17 00:00: 00 Yes [id number] 25mg Take 1 tablet by mouth every 4 (four) hours as needed for Nausea and Vomiting (N/V). [facility] proMETHazin e 25 mg tablet 2023-0 5-17 00:00: 00 Yes [id number] 25mg Take 1 tablet by mouth every 4 (four) hours as needed for Nausea and Vomiting (N/V). [facility] proMETHazin e 25 mg tablet 2023-0 5-17 00:00: 00 Yes [id number] 25mg Take 1 tablet by mouth every 4 (four) hours as needed for Nausea and Vomiting (N/V). [facility] proMETHazin e 25 mg tablet 3-0 5-17 00:00: 00 Yes [id number] 25mg Take 1 tablet by mouth every 4 (four) hours as needed for Nausea and Vomiting (N/V). [facility] proMETHazin e 25 mg tablet 3-0 5-17 00:00: 00 Yes [id number] 25mg Take 1 tablet by mouth every 4 (four) hours as needed for Nausea and Vomiting (N/V). [facility] proMETHazin e 25 mg tablet 3-0 5-17 00:00: 00 Yes [id number] 25mg Take 1 tablet by mouth every 4 (four) hours as needed for Nausea and Vomiting (N/V). [facility] proMETHazin e 25 mg tablet 3-0 5-17 00:00: 00 Yes [id number] 25mg Take 1 tablet by mouth every 4 (four) hours as needed for Nausea and Vomiting (N/V). [facility] proMETHazin e 25 mg tablet 3-0 5-17 00:00: 00 Yes [id number] 25mg Take 1 tablet by mouth every 4 (four) hours as needed for Nausea and Vomiting (N/V). [facility] proMETHazin e 25 mg tablet 2023-0 5-17 00:00: 00 Yes [id number] 25mg Take 1 tablet by mouth every 4 (four) hours as needed for Nausea and Vomiting (N/V). [facility] proMETHazin e 25 mg tablet 2023-0 5-17 00:00: 00 Yes [id number] 25mg Take 1 tablet by mouth every 4 (four) hours as needed for Nausea and Vomiting (N/V). [facility] proMETHazin e 25 mg tablet 2023-0 5-17 00:00: 00 Yes [id number] 25mg Take 1 tablet by mouth every 4 (four) hours as needed for Nausea and Vomiting (N/V). [facility] proMETHazin e 25 mg tablet 17 00:00: 00 Yes [id number] 25mg Take 1 tablet by mouth every 4 (four) hours as needed for Nausea and Vomiting (N/V). [facility] proMETHazin e 25 mg tablet 17 00:00: 00 03-27 00:00 :00 No [id number] 25mg Take 1 tablet by mouth every 4 (four) hours as needed for Nausea and Vomiting (N/V). [facility] proMETHazin e 25 mg tablet 08-25 00:00: 00 03-27 00:00 :00 No [id number] 25mg Take 1 tablet by mouth every 4 (four) hours as needed for Nausea and Vomiting (N/V). [facility] valACYclovi r (VALTREX) 500 mg tablet 2020-0416 00:00: 00 04-01 05:59 :00 No [id number] 500mg Take 1 tablet by mouth 2 (two) times daily for 5 days. [facility] metroNIDAZO LE 500 mg tablet 18 00:00: 00 05-06 05:59 :00 No [id number] 500mg Take 1 tablet by mouth 2 (two) times daily for 7 days. [facility] metroNIDAZO LE 500 mg tablet 18 00:00: 00 05-06 05:59 :00 No [id number] 500mg Take 1 tablet by mouth 2 (two) times daily for 7 days. [facility] metroNIDAZO LE 500 mg tablet 18 00:00: 00 05-06 05:59 :00 No [id number] 500mg Take 1 tablet by mouth 2 (two) times daily for 7 days. [facility] lidocaine 2 % mucosal jelly -14 00:00: 00 Yes [id number] Apply to area as needed [facility] lidocaine 2 % mucosal jelly 14 00:00: 00 Yes [id number] Apply to area as needed [facility] lidocaine 2 % mucosal jelly 2021-0 1-14 00:00: 00 Yes [id number] Apply to area as needed [facility] lidocaine 2 % mucosal jelly 2021-0 1-14 00:00: 00 Yes [id number] Apply to area as needed [facility] lidocaine 2 % mucosal jelly 2021-0 1-14 00:00: 00 Yes [id number] Apply to area as needed [facility] lidocaine 2 % mucosal jelly 2021-0 1-14 00:00: 00 Yes [id number] Apply to area as needed [facility] lidocaine 2 % mucosal jelly 2021-0 1-14 00:00: 00 Yes [id number] Apply to area as needed [facility] lidocaine 2 % mucosal jelly 2021-0 1-14 00:00: 00 Yes [id number] Apply to area as needed [facility] lidocaine 2 % mucosal jelly 2021-0 1-14 00:00: 00 Yes [id number] Apply to area as needed [facility] lidocaine 2 % mucosal jelly 2021-0 1-14 00:00: 00 Yes [id number] Apply to area as needed [facility] lidocaine 2 % mucosal jelly 2021-0 1-14 00:00: 00 Yes [id number] Apply to area as needed [facility] lidocaine 2 % mucosal jelly 2021-0 1-14 00:00: 00 Yes [id number] Apply to area as needed [facility] lidocaine 2 % mucosal jelly 2021-0 1-14 00:00: 00 Yes [id number] Apply to area as needed [facility] lidocaine 2 % mucosal jelly 2021-0 1-14 00:00: 00 Yes [id number] Apply to area as needed [facility] lidocaine 2 % mucosal jelly 2021-0 1-14 00:00: 00 Yes [id number] Apply to area as needed [facility] lidocaine 2 % mucosal jelly 2021-0 1-14 00:00: 00 Yes [id number] Apply to area as needed [facility] lidocaine 2 % mucosal jelly 2020-0 1-14 00:00: 00 Yes [id number] Apply to area as needed [facility] lidocaine 2 % mucosal jelly 2020-0 1-14 00:00: 00 Yes [id number] Apply to area as needed [facility] lidocaine 2 % mucosal jelly 2020-0 1-14 00:00: 00 Yes [id number] Apply to area as needed [facility] lidocaine 2 % mucosal jelly 2020-0 1-14 00:00: 00 Yes [id number] Apply to area as needed [facility] lidocaine 2 % mucosal jelly 1-0 1-14 00:00: 00 Yes [id number] Apply to area as needed [facility] lidocaine 2 % mucosal jelly 2020-0 1-14 00:00: 00 Yes [id number] Apply to area as needed [facility] lidocaine 2 % mucosal jelly 2020-0 1-14 00:00: 00 Yes [id number] Apply to area as needed [facility] lidocaine 2 % mucosal jelly 2020-0 1-14 00:00: 00 Yes [id number] Apply to area as needed [facility] lidocaine 2 % mucosal jelly 2020-0 1-14 00:00: 00 11-19 00:00 :00 No [id number] [facility] 04-24 00:00: 00 05-05 05:59 :00 No [id number] 1g Take 1 tablet by mouth 2 (two) times daily for 10 days. [facility] valACYclovi r 1 gram tablet 14 00:00: 00 05-05 05:59 :00 No [id number] 1g Take 1 tablet by mouth 2 (two) times daily for 10 days. [facility] 14 00:00: 00 05-05 05:59 :00 No [id number] 1g Take 1 tablet by mouth 2 (two) times daily for 10 days. [facility] Immunizations Ordered Immunization Name Filled Immunization Name Date Status Comments Source Influenza Virus Vaccine Quad IM, Preserv and ABX Free 6 MO-64 YRS (FLUCELVAX) Unknown Completed [facility] TDAP Unknown Completed [facility] Influenza Virus Vaccine Quad IM, Preserv and ABX Free 6 MO-64 YRS (FLUCELVAX) Unknown Completed [facility] TDAP Unknown Completed [facility] Influenza Virus Vaccine Quad IM, Preserv and ABX Free 6 MO-64 YRS (FLUCELVAX) Unknown Completed [facility] TDAP Unknown Completed [facility] Influenza Virus Vaccine Quad IM, Preserv and ABX Free 6 MO-64 YRS (FLUCELVAX) Unknown Completed [facility] TDAP Unknown Completed [facility] Influenza Virus Vaccine Quad IM, Preserv and ABX Free 6 MO-64 YRS (FLUCELVAX) Unknown Completed [facility] TDAP Unknown Completed [facility] Influenza Virus Vaccine Quad IM, Preserv and ABX Free 6 MO-64 YRS (FLUCELVAX) Unknown Completed [facility] TDAP Unknown Completed [facility] Influenza Virus Vaccine Quad IM, Preserv and ABX Free 6 MO-64 YRS (FLUCELVAX) Unknown Completed [facility] TDAP Unknown Completed [facility] Influenza Virus Vaccine Quad IM, Preserv and ABX Free 6 MO-64 YRS (FLUCELVAX) Unknown Completed [facility] TDAP Unknown Completed [facility] Influenza Virus Vaccine Quad IM, Preserv and ABX Free 6 MO-64 YRS (FLUCELVAX) Unknown Completed [facility] TDAP Unknown Completed [facility] Influenza Virus Vaccine Quad IM, Preserv and ABX Free 6 MO-64 YRS (FLUCELVAX) Unknown Completed [facility] TDAP Unknown Completed [facility] Influenza Virus Vaccine Quad IM, Preserv and ABX Free 6 MO-64 YRS (FLUCELVAX) Unknown Completed [facility] TDAP Unknown Completed [facility] Influenza Virus Vaccine Quad IM, Preserv and ABX Free 6 MO-64 YRS (FLUCELVAX) Unknown Completed [facility] TDAP Unknown Completed [facility] Influenza Virus Vaccine Quad IM, Preserv and ABX Free 6 MO-64 YRS (FLUCELVAX) Unknown Completed [facility] TDAP Unknown Completed [facility] Influenza Virus Vaccine Quad IM, Preserv and ABX Free 6 MO-64 YRS (FLUCELVAX) Unknown Completed [facility] TDAP Unknown Completed [facility] Influenza Virus Vaccine Quad IM, Preserv and ABX Free 6 MO-64 YRS (FLUCELVAX) Unknown Completed [facility] TDAP Unknown Completed [facility] Influenza Virus Vaccine Quad IM, Preserv and ABX Free 6 MO-64 YRS (FLUCELVAX) Unknown Completed [facility] TDAP Unknown Completed [facility] Influenza Virus Vaccine Quad IM, Preserv and ABX Free 6 MO-64 YRS (FLUCELVAX) Unknown Completed [facility] TDAP Unknown Completed [facility] Influenza Virus Vaccine Quad IM, Preserv and ABX Free 6 MO-64 YRS (FLUCELVAX) Unknown Completed [facility] TDAP Unknown Completed [facility] Influenza Virus Vaccine Quad IM, Preserv and ABX Free 6 MO-64 YRS (FLUCELVAX) Unknown Completed [facility] TDAP Unknown Completed [facility] Vital Signs Vital Name Observation Time Observation Value Comments S ource Systolic blood pressure 2023-05-06 22:19:00 119 mm[Hg] [facility] Diastolic blood pressure 2023-05-06 22:19:00 72 mm[Hg] [facility] Heart rate 2023-05-06 22:19:00 70 /min [facility] Body temperature 2023-05-06 22:19:00 36.33 [facility] Body height 2023-05-06 22:19:00 162.6 cm [facility] Body weight 2023-05-06 22:19:00 82.736 kg [facility] BMI 2023-05-06 22:19:00 31.31 kg/m2 [facility] Systolic blood pressure 2023-04-15 21:55:00 103 mm[Hg] [facility] Diastolic blood pressure 2023-04-15 21:55:00 54 mm[Hg] [facility] Heart rate 2023-04-15 21:55:00 83 /min [facility] Respiratory rate 2023-04-15 21:55:00 18 /min [facility] Body height 2023-04-15 21:55:00 162.6 cm [facility] Body weight 2023-04-15 21:55:00 81.194 kg [facility] BMI 2023-04-15 21:55:00 30.73 kg/m2 [facility] Systolic blood pressure 2023-03-28 15:45:00 123 mm[Hg] [facility] Diastolic blood pressure 2023-03-28 15:45:00 52 mm[Hg] [facility] Respiratory rate 2023-03-28 15:45:00 18 /min [facility] Heart rate 2023-03-28 10:42:00 88 /min [facility] Oxygen saturation in Arterial blood by Pulse oximetry 2023-03-28 10:42:00 96 /min [facility] Body temperature 2023-03-28 10:00:00 36.78 [facility] Body height 2023-03-25 07:03:00 162.6 cm [facility] Body weight 2023-03-25 07:03:00 87.998 kg [facility] BMI 2023-03-25 07:03:00 33.30 kg/m2 [facility] Systolic blood pressure 2023-03-26 19:00:00 119 mm[Hg] [facility] Diastolic blood pressure 2023-03-26 19:00:00 59 mm[Hg] [facility] Heart rate 2023-03-26 19:00:00 63 /min [facility] Body temperature 2023-03-26 19:00:00 36.83 [facility] Oxygen saturation in Arterial blood by Pulse oximetry 2023-03-26 19:00:00 96 /min [facility] Respiratory rate 2023-03-26 14:00:00 18 /min [facility] Body height 2023-03-25 07:03:00 162.6 cm [facility] Body weight 2023-03-25 07:03:00 87.998 kg [facility] BMI 2023-03-25 07:03:00 33.30 kg/m2 [facility] Systolic blood pressure 2023-03-23 19:24:00 117 mm[Hg] [facility] Diastolic blood pressure 2023-03-23 19:24:00 84 mm[Hg] [facility] Heart rate 2023-03-23 19:24:00 86 /min [facility] Body temperature 2023-03-23 19:24:00 36.67 [facility] Respiratory rate 2023-03-23 19:24:00 18 /min [facility] Body height 2023-03-23 19:24:00 162.6 cm [facility] Body weight 2023-03-23 19:24:00 87.499 kg [facility] BMI 2023-03-23 19:24:00 33.11 kg/m2 [facility] Systolic blood pressure 2023-03-17 20:14:00 107 mm[Hg] [facility] Diastolic blood pressure 2023-03-17 20:14:00 66 mm[Hg] [facility] Heart rate 2023-03-17 20:14:00 75 /min [facility] Body temperature 2023-03-17 20:14:00 36.83 [facility] Respiratory rate 2023-03-17 20:14:00 18 /min [facility] Body height 2023-03-17 20:14:00 162.6 cm [facility] Body weight 2023-03-17 20:14:00 86.909 kg [facility] BMI 2023-03-17 20:14:00 32.89 kg/m2 [facility] Systolic blood pressure 2023-03-08 20:33:00 117 mm[Hg] [facility] Diastolic blood pressure 2023-03-08 20:33:00 69 mm[Hg] [facility] Heart rate 2023-03-08 20:33:00 90 /min [facility] Body temperature 2023-03-08 20:33:00 36.89 [facility] Respiratory rate 2023-03-08 20:33:00 18 /min [facility] Body height 2023-03-08 20:33:00 162.6 cm [facility] Body weight 2023-03-08 20:33:00 87.272 kg [facility] BMI 2023-03-08 20:33:00 33.03 kg/m2 [facility] Systolic blood pressure 2023-02-18 19:29:00 116 mm[Hg] [facility] Diastolic blood pressure 2023-02-18 19:29:00 64 mm[Hg] [facility] Heart rate 2023-02-18 19:29:00 73 /min [facility] Body temperature 2023-02-18 19:29:00 36.33 [facility] Body height 2023-02-18 19:29:00 157.5 cm [facility] Body weight 2023-02-18 19:29:00 86.456 kg [facility] BMI 2023-02-18 19:29:00 34.86 kg/m2 [facility] Systolic blood pressure 2023-02-04 18:10:00 107 mm[Hg] [facility] Diastolic blood pressure 2023-02-04 18:10:00 64 mm[Hg] [facility] Heart rate 2023-02-04 18:10:00 86 /min [facility] Body temperature 2023-02-04 18:10:00 36.78 [facility] Respiratory rate 2023-02-04 18:10:00 17 /min [facility] Body height 2023-02-04 18:10:00 157.5 cm [facility] Body weight 2023-02-04 18:10:00 84.823 kg [facility] BMI 2023-02-04 18:10:00 34.20 kg/m2 [facility] Systolic blood pressure 2023-01-21 18:38:00 112 mm[Hg] [facility] Diastolic blood pressure 2023-01-21 18:38:00 63 mm[Hg] [facility] Heart rate 2023-01-21 18:38:00 90 /min [facility] Body temperature 2023-01-21 18:38:00 36.67 [facility] Respiratory rate 2023-01-21 18:38:00 18 /min [facility] Body height 2023-01-21 18:38:00 157.5 cm [facility] Body weight 2023-01-21 18:38:00 84.369 kg [facility] BMI 2023-01-21 18:38:00 34.02 kg/m2 [facility] Systolic blood pressure 2023-01-07 19:55:00 114 mm[Hg] [facility] Diastolic blood pressure 2023-01-07 19:55:00 59 mm[Hg] [facility] Heart rate 2023-01-07 19:55:00 85 /min [facility] Body temperature 2023-01-07 19:55:00 36.17 [facility] Respiratory rate 2023-01-07 19:55:00 18 /min [facility] Body height 2023-01-07 19:55:00 157.5 cm [facility] Body weight 2023-01-07 19:55:00 83.099 kg [facility] BMI 2023-01-07 19:55:00 33.51 kg/m2 [facility] Oxygen saturation in Arterial blood by Pulse oximetry 2023-01-07 19:55:00 98 /min [facility] Systolic blood pressure 2022-12-17 16:33:00 110 mm[Hg] [facility] Diastolic blood pressure 2022-12-17 16:33:00 70 mm[Hg] [facility] Heart rate 2022-12-17 16:33:00 79 /min [facility] Body temperature 2022-12-17 16:33:00 36.72 [facility] Body height 2022-12-17 16:33:00 157.5 cm [facility] Body weight 2022-12-17 16:33:00 80.468 kg [facility] BMI 2022-12-17 16:33:00 32.45 kg/m2 [facility] Systolic blood pressure 2022-11-19 16:03:00 99 mm[Hg] [facility] Diastolic blood pressure 2022-11-19 16:03:00 59 mm[Hg] [facility] Heart rate 2022-11-19 16:03:00 83 /min [facility] Body temperature 2022-11-19 16:03:00 36.72 [facility] Respiratory rate 2022-11-19 16:03:00 18 /min [facility] Body height 2022-11-19 16:03:00 157.5 cm [facility] Body weight 2022-11-19 16:03:00 78.472 kg [facility] BMI 2022-11-19 16:03:00 31.64 kg/m2 [facility] Systolic blood pressure 2022-10-19 13:54:00 116 mm[Hg] [facility] Diastolic blood pressure 2022-10-19 13:54:00 65 mm[Hg] [facility] Heart rate 2022-10-19 13:54:00 75 /min [facility] Body temperature 2022-10-19 13:54:00 36.94 [facility] Respiratory rate 2022-10-19 13:54:00 18 /min [facility] Body height 2022-10-19 13:54:00 157.5 cm [facility] Body weight 2022-10-19 13:54:00 78.019 kg [facility] BMI 2022-10-19 13:54:00 31.46 kg/m2 [facility] Systolic blood pressure 2022-09-21 20:48:00 108 mm[Hg] [facility] Diastolic blood pressure 2022-09-21 20:48:00 56 mm[Hg] [facility] Heart rate 2022-09-21 20:48:00 89 /min [facility] Body temperature 2022-09-21 20:48:00 36.78 [facility] Respiratory rate 2022-09-21 20:48:00 18 /min [facility] Body height 2022-09-21 20:48:00 157.5 cm [facility] Body weight 2022-09-21 20:48:00 74.571 kg [facility] BMI 2022-09-21 20:48:00 30.07 kg/m2 [facility] Oxygen saturation in Arterial blood by Pulse oximetry 2022-09-21 20:48:00 99 /min [facility] Systolic blood pressure 2022-08-25 20:04:00 115 mm[Hg] [facility] Diastolic blood pressure 2022-08-25 20:04:00 70 mm[Hg] [facility] Heart rate 2022-08-25 20:04:00 86 /min [facility] Body temperature 2022-08-25 20:04:00 36.56 [facility] Respiratory rate 2022-08-25 20:04:00 16 /min [facility] Body height 2022-08-25 20:04:00 157.5 cm [facility] Body weight 2022-08-25 20:04:00 75.297 kg [facility] BMI 2022-08-25 20:04:00 30.36 kg/m2 [facility] Systolic blood pressure 2020-04-24 20:07:00 106 mm[Hg] [facility] Diastolic blood pressure 2020-04-24 20:07:00 56 mm[Hg] [facility] Heart rate 2020-04-24 20:07:00 72 /min [facility] Body temperature 2020-04-24 20:07:00 36.44 [facility] Respiratory rate 2020-04-24 20:07:00 18 /min [facility] Body height 2020-04-24 20:07:00 157.5 cm [facility] Body weight 2020-04-24 20:07:00 67.087 kg [facility] BMI 2020-04-24 20:07:00 27.05 kg/m2 [facility] Oxygen saturation in Arterial blood by Pulse oximetry 2020-04-24 20:07:00 99 /min [facility] Procedures Procedure Date / Time Performed Performing Clinician Source CONSENT FOR CONTRACEPTION 2023-05-06 06:01:00 Doctor Unassigned, Mildred [facility] POCT TEST 2023-05-06 00:00:00 Adum, Spring Solomon [facility] CBC WITH DIFF 2023-03-27 10:00:00 Adum, Spring [facility] CBC WITH DIFF 2023-03-27 10:00:00 Adum, Spring [facility] SECTION 2023-03-26 16:53:00 Adum, [facility] 2023-03-26 16:53:00 Adum, Spring [facility]AL NEURAXIAL BLOCK 2023-03-26 07:10:00 Jim Neely [facility] CENTRAL NEURAXIAL BLOCK 2023-03-26 01:41:00 Jim Neely [facility] CBC WITH DIFF 2023-03-25 06:50:00 Adum, Spring Roberson [facility] HEPATITIS B SURFACE ANTIGEN 2023-03-25 06:50:00 Adum, Spring Solomon [facility] HB ABO GROUPING 2023-03-25 06:50:00 Adum, Spring Villagomez [facility] ADC OR RUDY ONLY - RPR 2023-03-25 06:50:00 Adum, Spring Solomon [facility] HIV 1/2 AG-AB WITH REFLEX 2023-03-25 06:50:00 Adum, Spring Solomon [facility] CBC WITH DIFF 2023-03-25 06:50:00 Adum, Spring [facility] HEPATITIS B SURFACE ANTIGEN 2023-03-25 06:50:00 Adum, Spring Solomon [facility] HB ABO GROUPING 2023-03-25 06:50:00 Adum, Spring Villagomez [facility] ADC OR RUDY ONLY - RPR 2023-03-25 06:50:00 Adum, Spring Solomon [facility] HIV 1/2 AG-AB WITH REFLEX 2023-03-25 06:50:00 Adum, Spring Solomon [facility] HOSPITAL ADMISSION 2023-03-25 06:01:00 Doctor Un assigned, Mildred [facility] POCT URINALYSIS W/O SPECIFIC GRAVITY 2023-03-23 00:00:00 Adum, Spring Solomon [facility] CONSENT/REFUSAL FOR DIAGNOSIS AND TREATMENT 2023-03-17 22:22:08 Doctor Unassigned, [facility] CONSENT/REFUSAL FOR DIAGNOSIS AND TREATMENT 2023-03-17 22:22:08 Doctor Unassigned, [facility] ASSIGNMENT OF BENEFITS 2023-03-17 22:10:56 Docto r Unassigned, [facility] ASSIGNMENT OF BENEFITS 2023-03-17 22:10:56 Docto r Unassigned, [facility] POCT URINALYSIS W/O SPECIFIC GRAVITY 2023-03-17 00:00:00 Adum, Spring Solomon [facility] DSU PRE-OP 2023-03-11 06:01:00 Doctor Unass igned, [facility] >14 WEEKS US LIMITED 2023-03-09 05:26:33 Adum, Spring Solomon [facility] POCT URINALYSIS W/O SPECIFIC GRAVITY 2023-03-08 20:39:00 Adum, Spring Solomon [facility] POCT URINALYSIS W/O SPECIFIC GRAVITY 2023-02-18 00:00:00 Adum, Spring Solomon [facility] POCT URINALYSIS W/O SPECIFIC GRAVITY 2023-02-04 00:00:00 Adum, Spring Solomon [facility] POCT URINALYSIS W/O SPECIFIC GRAVITY 2023-01-21 00:00:00 Adum, Spring Solomon [facility] TDAP VACCINE, >11 YRS, IM 2023-01-07 20:33:46 Adum, Spring Solomon [facility] FLU VACC (), 6 MO-64 YRS, .5ML, IM, QUAD (FLUCELVAX) 2023-01-07 20:23:28 Adum, Spring Solomon [facility] POCT URINALYSIS W/O SPECIFIC GRAVITY 2023-01-07 00:00:00 Adum, Spring Solomon [facility] POCT URINALYSIS W/O SPECIFIC GRAVITY 2022-12-17 00:00:00 Adum, Spring Solomon [facility] POCT URINALYSIS W/O SPECIFIC GRAVITY 2022-11-19 00:00:00 Adum, Spring Solomon [facility] SECOND AND THIRD TRIMESTER ULTRASOUND 2022-11-12 19:22:00 Adum, Spring Solomon [facility] POCT URINALYSIS W/O SPECIFIC GRAVITY 2022-10-19 00:00:00 Adum, Spring Solomon [facility] SCANNED LAB RESULTS 2022-09-28 05:01:00 Doctor Anali singh, [facility] POCT URINALYSIS W/O SPECIFIC GRAVITY 2022-09-21 00:00:00 Adum, Spring Solomon [facility] US OB TRANSVAGINAL 2022-08-25 20:40:38 Adum, Spring Solomon [facility] ASSIGNMENT OF BENEFITS 2022-08-25 19:49:50 Docto r Unassigned, [facility] POCT TEST 2022-08-25 00:00:00 Adum, Spring Solomon [facility] POCT URINALYSIS W/O SPECIFIC GRAVITY 2022-08-25 00:00:00 Adum, Spring Solomon [facility] GC & CHLAMYDIA AMPLIFIED ASSAY 2020-04-24 22:32:00 Dickson Antoine [facility] URINE CULTURE 2020-04-24 21:29:00 [facility] - VAGINAL PATHOGENS BY NUCLEIC ACID TESTING 2020-04-24 21:29:00 Dickson Antoine [facility] HSV 1&2, VZV BY PCR 2020-04-24 21:29:00 Dickson Antoine [facility] Encounters Start Date/Time End Date/Time Encounter Type Admission Type Attending [facility] Facility Care Department Encounter ID Source 2023-07-09 00:00:00 2023-07-09 00:00:00 Nurse Triage Domonique Lerma [facility] 1.2.840.114 350.1.13.10 4.2.7.2.686 [id number] [facility] 2023-05-06 16:00:00 2023-05-06 17:05:53 Outpatient R ADUM [facility] [id number] [facility] 2023-05-06 16:00:00 2023-05-06 17:05:53 Routine Visit Ad, Spring [facility] 1.2.840.114 350.1.13.10 4.2.7.2.686 [id number] 134 [id number] [facility] 2023-05-06 00:00:00 2023-05-06 00:00:00 Orders Only Doctor Unassigned, Mildred [facility] 1.2.840.114 350.1.13.10 4.2.7.2.686 [id number] [facility] 2023-04-15 15:45:00 2023-04-15 16:23:18 Outpatient R ADELIDA, [facility] [id number] [facility] 2023-04-15 15:45:00 2023-04-15 16:23:18 Routine Visit Adum, Spring [facility] 1.2.840.114 350.1.13.10 4.2.7.2.686 [id number] 134 [id number] [facility] 2023-03-25 00:05:00 2023-03-28 12:30:00 Inpatient P ADUM [facility] [id number] [facility] 2023-03-25 00:05:00 2023-03-28 12:30:00 Hospital Encounter Adum, Spring [facility] 1.2.840.114 350.1.13.10 4.2.7.2.686 [id number] [facility] 2023-03-28 00:00:00 2023-03-28 00:00:00 Encounter [facility] 1.2.840.114 350.1.13.10 4.2.7.2.686 [id number] [facility] 2023-03-26 11:05:00 2023-03-26 13:03:00 Surgery Spring Newman [facility] 1.2.840.114 350.1.13.10 4.2.7.2.686 [id number] [facility] 2023-03-25 19:41:00 2023-03-26 12:26:00 Anesthesia Event Jim Neely Richesh [facility] 1.2.840.114 350.1.13.10 4.2.7.2.686 [id number] [facility] 2023-03-25 16:09:56 2023-03-25 16:09:56 Anesthesia Event Tito Malone Jeffrey S [facility] 1.2.840.114 350.1.13.10 4.2.7.2.686 [id number] [facility] 2023-03-25 00:00:00 2023-03-25 00:00:00 Orders Only Doctor Unassigned, [facility]red [facility] 1.2.840.114 350.1.13.10 4.2.7.2.686 [id number] [facility] 2023-03-23 13:30:00 2023-03-23 13:48:10 Outpatient R PATY [facility] [id number] [facility] 2023-03-23 13:30:00 2023-03-23 13:48:10 Routine Visit Adum, Spring Solomon [facility] 1.2840.114 350.1.13.10 4.2.7.2.686 [id number] 134 [id number] [facility] 2023-03-17 14:15:00 2023-03-17 14:30:00 Routine Visit Adum, Spring Solomon [facility] 1.2840.114 350.1.13.10 4.2.7.2.686 [id number] 134 [id number] [facility] 2023-03-17 14:15:00 2023-03-17 14:15:00 Outpatient R ADUM, [facility] [id number] [facility] 2023-03-11 00:00:00 2023-03-11 00:00:00 Orders Only Doctor Unassigned, [facility]red [facility] 1.2.840.114 350.1.13.10 4.2.7.2.686 [id number] [id number] [facility] 2023-03-08 16:00:00 2023-03-08 16:11:10 Starting Sheet Tank Operator Visit 2, Adc Lab Adum, Spring Solomon [facility] 1.2840.114 350.1.13.10 4.2.7.2.686 [id number] [facility] 2023-03-08 13:45:00 2023-03-08 15:49:03 Outpatient R ADUM, [facility] [id number] [facility] 2023-03-08 13:45:00 2023-03-08 15:49:03 Routine Visit Adum, Spring [facility] 1.2.840.114 350.1.13.10 4.2.7.2.686 [id number] 134 [id number] [facility] 2023-02-18 13:15:00 2023-02-18 14:02:48 Outpatient R ADUM, SPRING [facility] [id number] [facility] 2023-02-18 13:15:00 2023-02-18 14:02:48 Routine Visit Adum, [facility] 1.2.840.114 350.1.13.10 4.2.7.2.686 [id number] 134 [id number] [facility] 2023-02-04 13:15:00 2023-02-04 13:25:49 Outpatient R ADUM, SPRING [facility] [id number] [facility] 2023-02-04 13:15:00 2023-02-04 13:25:49 Routine Visit Adum, Spring Solomon [facility] 1.2.840.114 350.1.13.10 4.2.7.2.686 [id number] 134 [id number] [facility] 2023-01-21 13:30:00 2023-01-21 13:45:00 Routine Visit Adum, Spring Solomon [facility] 1.2.840.114 350.1.13.10 4.2.7.2.686 [id number] [facility] 2023-01-21 13:30:00 2023-01-21 13:30:00 Outpatient R ADUM, SPRING [facility] [id number] [facility] 2023-01-07 15:15:00 2023-01-07 15:33:02 Outpatient R ADUM, SPRING [facility] [id number] [facility] 2023-01-07 15:15:00 2023-01-07 15:33:02 Routine Visit Adum, Spring Solomon [facility] 1.2.840.114 350.1.13.10 4.2.7.2.686 [id number] [facility] 2023-01-07 13:30:00 2023-01-07 13:45:00 Starting Sheet Tank Operator Visit 2, Adc Lab Adum, Spring Solomon [facility] 1.2.840.114 350.1.13.10 4.2.7.2.686 [id number] [facility] 2022-12-17 11:15:00 2022-12-17 11:50:41 Outpatient R ADUM, [facility] [id number] [facility] 2022-12-17 11:15:00 2022-12-17 11:50:41 [facility] 1.2.840.114 350.1.13.10 4.2.7.2.686 [id number] 134 [id number] [facility] 2022-11-19 10:45:00 2022-11-19 12:02:21 Outpatient R ADUM, [facility] [id number] [facility] 2022-11-19 10:45:00 2022-11-19 12:02:21 [facility] 1.2.840.114 350.1.13.10 4.2.7.2.686 [id number] 134 [id number] [facility] 2022-11-14 00:00:00 2022-11-14 00:00:00 Case Management Emma Hu [facility] 1..840.114 350.1.13.10 4.2.7.2.686 [id number] [facility] 2022-11-12 13:30:00 2022-11-12 14:09:49 Outpatient EZRA CLEMENS COREY [facility] [id number] [facility] 2022-11-12 13:30:00 2022-11-12 14:09:49 Starting Sheet Tank Operator Visit Ultrasound, Kade-Ezra Dennison [facility] PROCESS ARCHITECT [facility] 1.2.840.114 350.1.13.10 4.2.7.2.686 [id number] [facility] 2022-10-19 09:45:00 2022-10-19 10:00:00 Starting Sheet Tank Operator Visit 2, Adc Lab Adum, Spring Solomon [facility] 1.2.840.114 350.1.13.10 4.2.7.2.686 [id number] [facility] 2022-10-19 09:45:00 2022-10-19 09:45:00 Outpatient R ADUM, SPRING [facility] [id number] [facility] 2022-10-19 08:45:00 2022-10-19 09:24:49 Routine Visit Adum, Spring Solomon [facility] 1.2.840.114 350.1.13.10 4.2.7.2.686 [id number] 134 [id number] [facility] 2022-10-18 00:00:00 2022-10-18 00:00:00 Telephone Adum, Spring Solomon [facility] 1.2.840.114 350.1.13.10 4.2.7.2.686 [id number] [facility] 2022-10-06 00:00:00 2022-10-06 00:00:00 Telephone Adum, Spring Solomon [facility] 1.2.840.114 350.1.13.10 4.2.7.2.686 [id number] 134 [id number] [facility] 2022-10-04 00:00:00 2022-10-04 00:00:00 Telephone Adum, Spring Solomon [facility] 1.2.840.114 350.1.13.10 4.2.7.2.686 [id number] 134 [id number] [facility] 2022-09-28 10:00:00 2022-09-28 10:15:00 Starting Sheet Tank Operator Visit 2, Adc Lab Adum, Spring [facility] 1.2.840.114 350.1.13.10 4.2.7.2.686 [id number] [facility] 2022-09-28 10:00:00 2022-09-28 10:00:00 Outpatient R ADELIDA, SPRING [facility] [id number] [facility] 2022-09-28 00:00:00 2022-09-28 00:00:00 Orders Only Doctor Unassigned, Mildred [facility] 1.2.840.114 350.1.13.10 4.2.7.2.686 [id number] [facility] 2022-09-21 15:30:00 2022-09-21 16:35:38 Routine Visit Adum, Spring Solomon [facility] 1.2.840.114 350.1.13.10 4.2.7.2.686 [id number] 134 [id number] [facility] 2022-09-21 15:30:00 2022-09-21 16:35:38 Outpatient R ADUM, SPRING [facility] [id number] [facility] 2022-08-27 00:00:00 2022-08-27 00:00:00 Case Management Adum, Spring Solomon [facility] 1.2.840.114 350.1.13.10 4.2.7.2.686 [id number] 134 [id number] [facility] 2022-08-27 00:00:00 2022-08-27 00:00:00 Case Management Adum, Spring Solomon [facility] 1.0.114 350.1.13.10 4.2.7.2.686 [id number] 134 [id number] [facility] 2022-08-26 10:30:00 2022-08-26 11:35:21 Starting Sheet Tank Operator Visit Lab, Kade - Spring Holt [facility] 1.0.114 350.1.13.10 4.2.7.2.686 [id number] [facility] 2022-08-26 10:30:00 2022-08-26 10:30:00 Outpatient R PATY [facility] [id number] [facility] 2022-08-25 14:30:00 2022-08-25 15:43:19 Outpatient R PATY [facility] [id number] [facility] 2022-08-25 14:30:00 2022-08-25 15:43:19 Initial Visit Spring Newman [facility] 1..114 350.1.13.10 4.2.7.2.686 [id number] [facility] 2022-08-25 00:00:00 2022-08-25 00:00:00 Orders Only Doctor Unassigned, Mildred [facility] 1.0.114 350.1.13.10 4.2.7.2.686 [id number] [facility] 2021-03-26 00:00:00 2021-03-26 00:00:00 Telephone Dickson Antoine [facility] PROCESS ARCHITECT [facility] 1..114 350.1.13.10 4.2.7.2.686 [id number] [facility] 2021-03-25 00:00:00 2021-03-25 00:00:00 Telephone Dickson Antoine [facility] PROCESS ARCHITECT [facility] 1.2.840.114 350.1.13.10 4.2.7.2.686 [id number] [facility] 2020-08-15 00:00:00 2020-08-15 00:00:00 Refill Elina Dickson Alvarado [facility] PROCESS ARCHITECT [facility] 1.2.840.114 350.1.13.10 4.2.7.2.686 [id number] [facility] 2020-05-02 12:45:00 2020-05-02 12:45:00 Outpatient R LISBETH SANTANA [facility] [id number] [facility] 2020-05-02 00:00:00 2020-05-02 00:00:00 Telephone Lisbeth Santana [facility] [place] [id number] [facility] 2020-05-02 00:00:00 2020-05-02 00:00:00 Letter (Out) Lisbeth Santana [facility] PROCESS ARCHITECT [facility] [place] [facility] [place] [id number] 111 [id number] [facility] 2020-04-28 00:00:00 2020-04-28 00:00:00 Telephone [facility] [id number] [facility] 2020-04-24 13:34:56 2020-04-24 15:28:24 Office Visit OscarDickson frost [facility] PROCESS ARCHITECT [facility] [place] [facility] [id number] [facility] 2020-04-24 14:15:00 2020-04-24 14:15:00 Outpatient [facility] [id number] [facility] Results Test Description Test Time Test Comments Results Result Co mments Source [facility] [id number] 12:03:09* Test Item Value Reference Range Interpretation Comme nts WBC (test code = 6690-2) 12.96 See_Comment H [Automated message] The system which generated this result transmitted reference range: 4.30 - 11.10 10*3/?L. The reference range was not used to interpret this result as normal/abnormal. RBC (test code = 789-8) 3.19 See_Comment L [Automated message] The system which generated this result transmitted reference range: 3.93 - 5.25 10*6/?L. The reference range was not used to interpret this result as normal/abnormal. HGB (test code = 718-7) 8.6 g/dL 11.6-15.0 L HCT (test code = 4544-3) 27.1 % 35.7-45.2 L MCV (test code = 787-2) 85.0 fL 80.6-95.5 MCH (test code = 785-6) 27.0 pg 25.9-32.8 MCHC (test code = 786-4) 31.7 g/dL 31.6-35.1 RDW-SD (test code = 31519-0) 43.0 fL 39.0-49.9 RDW-CV (test code = 788-0) 13.9 % 12.0-15.5 PLT (test code = 777-3) 245 See_Comment [Automated message] The system which generated this result transmitted reference range: 166 - 358 10*3/?L. The reference range was not used to interpret this result as normal/abnormal. MPV (test code = 28776-1) 11.5 fL 9.5-12.9 NRBC/100 WBC (test code = 1764625917) 0.0 See_Comment [Automated message] The system which generated this result transmitted reference range: 0.0 - 10.0 /100 WBCs. The reference range was not used to interpret this result as normal/abnormal. NRBC x10^3 (test code = 5053025217) See_Comment [Automated message] The system which generated this result transmitted reference range: 10*3/?L. The reference range was not used to interpret this result as normal/abnormal. GRAN MAT (NEUT) % (test code = 770-8) 80.9 % IMM GRAN % (test code = 6772605478) 0.40 % LYMPH % (test code = 736-9) 13.0 % MONO % (test code = 5905-5) 5.0 % EOS % (test code = 713-8) 0.5 % BASO % (test code = 706-2) 0.2 % GRAN MAT x10^3(ANC) (test code = 8782985651) 10.47 10*3/uL 1.88-7.09 H IMM GRAN x10^3 (test code = 6437029811) 0.05 10*3/uL 0.00-0.06 LYMPH x10^3 (test code = 731-0) 1.69 10*3/uL 1.32-3.29 MONO x10^3 (test code = 742-7) 0.65 10*3/uL 0.33-0.92 EOS x10^3 (test code = 711-2) 0.07 10*3/uL 0.03-0.39 BASO x10^3 (test code = 704-7) 0.03 10*3/uL 0.01-0.07 Lab Interpretation (test code = 58905-0) Abnormal [facility] with [id number] 12:03:09* Test Item Value Reference Range Interpretation Comme nts WBC (test code = 6690-2) 12.96 See_Comment H [Automated message] The system which generated this result transmitted reference range: 4.30 - 11.10 10*3/?L. The reference range was not used to interpret this result as normal/abnormal. RBC (test code = 789-8) 3.19 See_Comment L [Automated message] The system which generated this result transmitted reference range: 3.93 - 5.25 10*6/?L. The reference range was not used to interpret this result as normal/abnormal. HGB (test code = 718-7) 8.6 g/dL 11.6-15.0 L HCT (test code = 4544-3) 27.1 % 35.7-45.2 L MCV (test code = 787-2) 85.0 fL 80.6-95.5 MCH (test code = 785-6) 27.0 pg 25.9-32.8 MCHC (test code = 786-4) 31.7 g/dL 31.6-35.1 RDW-SD (test code = 10480-6) 43.0 fL 39.0-49.9 RDW-CV (test code = 788-0) 13.9 % 12.0-15.5 PLT (test code = 777-3) 245 See_Comment [Automated message] The system which generated this result transmitted reference range: 166 - 358 10*3/?L. The reference range was not used to interpret this result as normal/abnormal. MPV (test code = 94185-6) 11.5 fL 9.5-12.9 NRBC/100 WBC (test code = 7854054459) 0.0 See_Comment [Automated message] The system which generated this result transmitted reference range: 0.0 - 10.0 /100 WBCs. The reference range was not used to interpret this result as normal/abnormal. NRBC x10^3 (test code = 3509690106) See_Comment [Automated message] The system which generated this result transmitted reference range: 10*3/?L. The reference range was not used to interpret this result as normal/abnormal. GRAN MAT (NEUT) % (test code = 770-8) 80.9 % IMM GRAN % (test code = 0943567927) 0.40 % LYMPH % (test code = 736-9) 13.0 % MONO % (test code = 5905-5) 5.0 % EOS % (test code = 713-8) 0.5 % BASO % (test code = 706-2) 0.2 % GRAN MAT x10^3(ANC) (test code = 9664869465) 10.47 10*3/uL 1.88-7.09 H IMM GRAN x10^3 (test code = 0126570811) 0.05 10*3/uL 0.00-0.06 LYMPH x10^3 (test code = 731-0) 1.69 10*3/uL 1.32-3.29 MONO x10^3 (test code = 742-7) 0.65 10*3/uL 0.33-0.92 EOS x10^3 (test code = 711-2) 0.07 10*3/uL 0.03-0.39 BASO x10^3 (test code = 704-7) 0.03 10*3/uL 0.01-0.07 Lab Interpretation (test code = 93517-4) Abnormal [facility] OR RUDY ONLY - [id number] 05:24:04* Test Item Value Reference Range Interpretation Comme nts RPR (Qualitative) (test code = 15854-9) Nonreactive Nonreactive Lab Interpretation (test cod e = 79938-7) Normal [facility] OR RUDY ONLY - [id number] 05:24:04* Test Item Value Reference Range Interpretation Comme nts RPR (Qualitative) (test code = 56886-4) Nonreactive Nonreactive Lab Interpretation (test cod e = 60116-3) Normal [facility] B Surface [id number] 12:42:58 * Test Item Value Reference Range Interpretation Comme nts HBsAg Semi-Quantitative (rose t code = 5195-3) 0.05 Negative [facility] B Surface [id number] 12:42:58 * Test Item Value Reference Range Interpretation Comme nts HBsAg Semi-Quantitative (rose t code = 5195-3) 0.05 Negative [facility] 1/2 Ag-Ab with [id number] 08:25:13* Test Item Value Reference Range Interpretation Comme nts HIV Semi-quantitative (test code = 37691-6) 0.10 Negative AUBRIE (test code = AUBRIE) Non-reactive for HIV-1 antigen and HIV-1/HIV-2 antibodies. ?No laboratory evidence of HIV infection. ?Repeat in 2-4 weeks if acute HIV infection is suspected. [facility] 1/2 Ag-Ab with [id number] 08:25:13* Test Item Value Reference Range Interpretation Comme nts HIV Semi-quantitative (test code = 48671-1) 0.10 Negative AUBRIE (test code = AUBRIE) Non-reactive for HIV-1 antigen and HIV-1/HIV-2 antibodies. ?No laboratory evidence of HIV infection. ?Repeat in 2-4 weeks if acute HIV infection is suspected. [facility] with Pmpyhcwpodin1884-71-57 07:22:11* Test Item Value Reference Range Interpretation Comme nts WBC (test code = 6690-2) 11.48 See_Comment H [Automated messa ge] The system which generated this result transmitted reference range: 4.30 - 11.10 10*3/?L. The reference range was not used to interpret this result as normal/abnormal. RBC (test code = 789-8) 3.61 See_Comment L [Automated messa ge] The system which generated this result transmitted reference range: 3.93 - 5.25 10*6/?L. The reference range was not used to interpret this result as normal/abnormal. HGB (test code = 718-7) 9.7 g/dL 11.6-15.0 L HCT (test code = 4544-3) 30.2 % 35.7-45.2 L MCV (test code = 787-2) 83.7 fL 80.6-95.5 MCH (test code = 785-6) 26.9 pg 25.9-32.8 MCHC (test code = 786-4) 32.1 g/dL 31.6-35.1 RDW-SD (test code = 23450-1) 40.7 fL 39.0-49.9 RDW-CV (test code = 788-0) 13.3 % 12.0-15.5 PLT (test code = 777-3) 309 See_Comment [Automated messa ge] The system which generated this result transmitted reference range: 166 - 358 10*3/?L. The reference range was not used to interpret this result as normal/abnormal. MPV (test code = 92361-0) 10.9 fL 9.5-12.9 NRBC/100 WBC (test code = 8007769981) 0.0 See_Comment [Automated me ssage] The system which generated this result transmitted reference range: 0.0 - 10.0 /100 WBCs. The reference range was not used to interpret this result as normal/abnormal. NRBC x10^3 (test code = 7378861828) See_Comment [Automated messa ge] The system which generated this result transmitted reference range: 10*3/?L. The reference range was not used to interpret this result as normal/abnormal. GRAN MAT (NEUT) % (test code = 770-8) 70.6 % IMM GRAN % (test code = 7076971163) 0.40 % LYMPH % (test code = 736-9) 21.3 % MONO % (test code = 5905-5) 7.1 % EOS % (test code = 713-8) 0.3 % BASO % (test code = 706-2) 0.3 % GRAN MAT x10^3(ANC) (test code = 7183294117) 8.12 10*3/uL 1.88-7.09 H IMM GRAN x10^3 (test code = 4992505451) 0.05 10*3/uL 0.00-0.06 LYMPH x10^3 (test code = 731-0) 2.44 10*3/uL 1.32-3.29 MONO x10^3 (test code = 742-7) 0.81 10*3/uL 0.33-0.92 EOS x10^3 (test code = 711-2) 0.03 10*3/uL 0.03-0.39 BASO x10^3 (test code = 704-7) 0.03 10*3/uL 0.01-0.07 Lab Interpretation (test code = 08715-4) Abnormal [facility] with Lfzgrqaljazl9219-41-41 07:22:11* Test Item Value Reference Range Interpretation Comme nts WBC (test code = 6690-2) 11.48 See_Comment H [Automated messa ge] The system which generated this result transmitted reference range: 4.30 - 11.10 10*3/?L. The reference range was not used to interpret this result as normal/abnormal. RBC (test code = 789-8) 3.61 See_Comment L [Automated messa ge] The system which generated this result transmitted reference range: 3.93 - 5.25 10*6/?L. The reference range was not used to interpret this result as normal/abnormal. HGB (test code = 718-7) 9.7 g/dL 11.6-15.0 L HCT (test code = 4544-3) 30.2 % 35.7-45.2 L MCV (test code = 787-2) 83.7 fL 80.6-95.5 MCH (test code = 785-6) 26.9 pg 25.9-32.8 MCHC (test code = 786-4) 32.1 g/dL 31.6-35.1 RDW-SD (test code = 80845-4) 40.7 fL 39.0-49.9 RDW-CV (test code = 788-0) 13.3 % 12.0-15.5 PLT (test code = 777-3) 309 See_Comment [Automated messa ge] The system which generated this result transmitted reference range: 166 - 358 10*3/?L. The reference range was not used to interpret this result as normal/abnormal. MPV (test code = 08438-0) 10.9 fL 9.5-12.9 NRBC/100 WBC (test code = 4771299121) 0.0 See_Comment [Automated [employer] ssage] The system which generated this result transmitted reference range: 0.0 - 10.0 /100 WBCs. The reference range was not used to interpret this result as normal/abnormal. NRBC x10^3 (test code = 7786702764) See_Comment [Automated messa ge] The system which generated this result transmitted reference range: 10*3/?L. The reference range was not used to interpret this result as normal/abnormal. GRAN MAT (NEUT) % (test code = 770-8) 70.6 % IMM GRAN % (test code = 9599115644) 0.40 % LYMPH % (test code = 736-9) 21.3 % MONO % (test code = 5905-5) 7.1 % EOS % (test code = 713-8) 0.3 % BASO % (test code = 706-2) 0.3 % GRAN MAT x10^3(ANC) (test code = 5119942407) 8.12 10*3/uL 1.88-7.09 H IMM GRAN x10^3 (test code = 8012339235) 0.05 10*3/uL 0.00-0.06 LYMPH x10^3 (test code = 731-0) 2.44 10*3/uL 1.32-3.29 MONO x10^3 (test code = 742-7) 0.81 10*3/uL 0.33-0.92 EOS x10^3 (test code = 711-2) 0.03 10*3/uL 0.03-0.39 BASO x10^3 (test code = 704-7) 0.03 10*3/uL 0.01-0.07 Lab Interpretation (test code = 05265-3) [facility] [id number] 07:19:00 * Test Item Value Reference Range Interpretation Comme nts ABO & RH (test code = 20) AB Positive IAT (test code = 1185) Negative [facility]CE [id number] 07:19:00 * Test Item Value Reference Range Interpretation Comme nts ABO & RH (test code = 20) AB Positive IAT (test code = 1185) Negative [facility] Urinalysis w/o Specific [id number] 19:25:00* Test Item Value Reference Range Interpretation Comme nts POCT PH U (test code = 3254) n/a 5-8 POCT U LEUK EST (test code = 3263) n/a Negative - Negative POCT U NIT (test code = 3262) n/a Negative - Negati ve POCT U PROT (test code = 3259) negative Negative - Negat moon POCT U GLU (test code = 3256) negaitve Negative - Negati ve POCT U KETONE (test code = 3258) n/a Negative - Neg ative POCT U BLD (test code = 3257) n/a Negative - Negati ve [facility] URINALYSIS W/O SPECIFIC [id number] 20:32:00* Test Item Value Reference Range Interpretation Comme nts POCT PH U (test code = 3254) n/a 5-8 POCT U LEUK EST (test code = 3263) n/a Negative - N egative POCT U NIT (test code = 3262) n/a Negative - Negati ve POCT U PROT (test code = 3259) neg Negative - Negat moon POCT U GLU (test code = 3256) normal Negative - Negati ve POCT U KETONE (test code = 3258) n/a Negative - Neg ative POCT U BLD (test code = 3257) n/a Negative - Negati ve [facility] URINALYSIS W/O SPECIFIC [id number] 20:40:00* Test Item Value Reference Range Interpretation Comme nts POCT PH U (test code = 3254) na 5-8 POCT U LEUK EST (test code = 3263) na Negative - Negative POCT U NIT (test code = 3262) na Negative - Negative POCT U PROT (test code = 3259) negative Negative - Negative POCT U GLU (test code = 3256) 100 Negative - Negative POCT U KETONE (test code = 3258) na Negative - Negative POCT U BLD (test code = 3257) na Negative - Negative AUBRIE (test code = AUBRIE) accurate developme nt and interpretation of all internal controls Lab Interpretation (test code = 98670-3) Abnormal [facility] URINALYSIS W/O SPECIFIC [id number] 19:27:00* Test Item Value Reference Range Interpretation Comme nts POCT PH U (test code = 3254) n/a 5-8 POCT U LEUK EST (test code = 3263) n/a Negative - Negative POCT U NIT (test code = 3262) n/a Negative - Negati ve POCT U PROT (test code = 3259) Negative Negative - Negat moon POCT U GLU (test code = 3256) Normal Negative - Negati ve POCT U KETONE (test code = 3258) n/a Negative - Neg ative POCT U BLD (test code = 3257) n/a Negative - Negati ve [facility] URINALYSIS W/O SPECIFIC [id number] 18:08:00* Test Item Value Reference Range Interpretation Comme nts POCT PH U (test code = 3254) n/a 5-8 POCT U LEUK EST (test code = 3263) n/a Negative - Negative POCT U NIT (test code = 3262) n/a Negative - Negati ve POCT U PROT (test code = 3259) negative Negative - Negat moon POCT U GLU (test code = 3256) normal Negative - Negati ve POCT U KETONE (test code = 3258) n/a Negative - Neg ative POCT U BLD (test code = 3257) n/a Negative - Negati ve [facility] URINALYSIS W/O SPECIFIC [id number] 18:41:00* Test Item Value Reference Range Interpretation Comme nts POCT PH U (test code = 3254) n/a 5-8 POCT U LEUK EST (test code = 3263) n/a Negative - N egative POCT U NIT (test code = 3262) n/a Negative - Negati ve POCT U PROT (test code = 3259) neg Negative - Negat moon POCT U GLU (test code = 3256) neg Negative - Negati ve POCT U KETONE (test code = 3258) n/a Negative - Neg ative POCT U BLD (test code = 3257) n/a Negative - Negati ve [facility] URINALYSIS W/O SPECIFIC [id number] 19:55:00* Test Item Value Reference Range Interpretation Comme nts POCT PH U (test code = 3254) n/a 5-8 POCT U LEUK EST (test code = 3263) n/a Negative - Negative POCT U NIT (test code = 3262) n/a Negative - Negati ve POCT U PROT (test code = 3259) negative Negative - Negat moon POCT U GLU (test code = 3256) 250 Negative - Negati ve POCT U KETONE (test code = 3258) n/a Negative - Neg ative POCT U BLD (test code = 3257) n/a Negative - Negati ve [facility] URINALYSIS W/O SPECIFIC [id number] 16:31:00* Test Item Value Reference Range Interpretation Comme nts POCT PH U (test code = 3254) n/a 5-8 POCT U LEUK EST (test code = 3263) n/a Negative - Negative POCT U NIT (test code = 3262) n/a Negative - Negati ve POCT U PROT (test code = 3259) Negative Negative - Negat moon POCT U GLU (test code = 3256) 100 Negative - Negati ve POCT U KETONE (test code = 3258) n/a Negative - Neg ative POCT U BLD (test code = 3257) n/a Negative - Negati ve [facility] URINALYSIS W/O SPECIFIC [id number] 15:55:00* Test Item Value Reference Range Interpretation Comme nts POCT PH U (test code = 3254) n/a 5-8 POCT U LEUK EST (test code = 3263) n/a Negative - Negative POCT U NIT (test code = 3262) n/a Negative - Negati ve POCT U PROT (test code = 3259) negative Negative - Negat moon POCT U GLU (test code = 3256) negative Negative - Negati ve POCT U KETONE (test code = 3258) n/a Negative - Neg ative POCT U BLD (test code = 3257) n/a Negative - Negati ve [facility] URINALYSIS W/O SPECIFIC [id number] 14:07:00* Test Item Value Reference Range Interpretation Comme nts POCT PH U (test code = 3254) n/a 5-8 POCT U LEUK EST (test code = 3263) n/a Negative - N egative POCT U NIT (test code = 3262) n/a Negative - Negati ve POCT U PROT (test code = 3259) neg Negative - Negat moon POCT U GLU (test code = 3256) neg Negative - Negati ve POCT U KETONE (test code = 3258) n/a Negative - Neg ative POCT U BLD (test code = 3257) n/a Negative - Negati ve [facility] URINALYSIS W/O SPECIFIC [id number] 20:45:00* Test Item Value Reference Range Interpretation Comme nts POCT PH U (test code = 3254) n/a 5-8 POCT U LEUK EST (test code = 3263) n/a Negative - Negative POCT U NIT (test code = 3262) n/a Negative - Negati ve POCT U PROT (test code = 3259) negative Negative - Negat moon POCT U GLU (test code = 3256) negative Negative - Negati ve POCT U KETONE (test code = 3258) n/a Negative - Neg ative POCT U BLD (test code = 3257) n/a Negative - Negati ve [facility] URINALYSIS W/O SPECIFIC [id number] 20:07:00* Test Item Value Reference Range Interpretation Comme nts POCT PH U (test code = 3254) n/a 5-8 POCT U LEUK EST (test code = 3263) n/a Negative - Negative POCT U NIT (test code = 3262) n/a Negative - Negati ve POCT U PROT (test code = 3259) negative Negative - Negat moon POCT U GLU (test code = 3256) negative Negative - Negati ve POCT U KETONE (test code = 3258) n/a Negative - Neg ative POCT U BLD (test code = 3257) n/a Negative - Negati ve [facility] [id number] 20:06:00* Test Item Value Reference Range Interpretation Comme nts POCT PREG (test code = 1605) Positive On board controls acceptable with C Line (test code = 3574) Yes POCT PREG LOT # (test code = 3575) POCT PREG TEST DATE ( test code = 3576) [facility]ENS BY NUCLEIC ACID [id number] 17:15:00* Test Item Value Reference Range Interpretation Comme nts Trichomonas vaginalis (test code = 9539417111) Negative Negative Zakia species (test code = 0500132709) Negative Negative Zakia glabrata (test code = 45563-2) Negative Negative Bacterial Vaginosis (test code = 07831-5) Positive Negative A AUBRIE (test code = AUBRIE) Reliable results a re dependent on adequate specimen collection. This test detects Trichomonas vaginalis, Zakia glabrata, and other Zakia species (C. albicans, C. parapsilosis, C. dubliniensis, and C. tropicalis). ?The assay does not differentiate among organisms in the Zakia species group. The Bacterial Vaginosis result is determined based on relative amounts of the following target organisms: Lactobacillus (L. gasseri, L. crispatus, and L. jensenii), Gardnerella vaginalis, and Atopobium vaginae. ?A single qualitative result is generated. ?This assay does not report individual organisms. A positive result obtained from a patient after therapeutic treatment cannot be interpreted as indicating the presence of viable organisms. ?For patients on whom a false positive result may have adverse psychosocial impact, retesting is advised. Indeterminate: Unable to generate a valid test result on this specimen. ?Please submit a new specimen for repeat testing if clinically indicated. This testing has not been validated for medico-legal purposes (sexual abuse in jyoti-pubertal and pre-pubertal children, sexual assault, and legal cases). Results from this testing should be interpreted in conjunction with other laboratory and clinical data available to the clinician. Lab Interpretation (test code = 91787-4) [facility] - VAGINAL PATHOGENS BY NUCLEIC ACID [id number] 17:15:00* Test Item Value Reference Range Interpretation Comme nts Trichomonas vaginalis (test code = 3233292326) Negative Negative Zakia species (test code = 8183404111) Negative Negative Zakia glabrata (test code = 11273-4) Negative Negative Bacterial Vaginosis (test code = 46987-8) Positive Negative A AUBRIE (test code = AUBRIE) Reliable results a re dependent on adequate specimen collection. This test detects Trichomonas vaginalis, Zakia glabrata, and other Zakia species (C. albicans, C. parapsilosis, C. dubliniensis, and C. tropicalis). ?The assay does not differentiate among organisms in the Zakia species group. The Bacterial Vaginosis result is determined based on relative amounts of the following target organisms: Lactobacillus (L. gasseri, L. crispatus, and L. jensenii), Gardnerella vaginalis, and Atopobium vaginae. ?A single qualitative result is generated. ?This assay does not report individual organisms. A positive result obtained from a patient after therapeutic treatment cannot be interpreted as indicating the presence of viable organisms. ?For patients on whom a false positive result may have adverse psychosocial impact, retesting is advised. Indeterminate: Unable to generate a valid test result on this specimen. ?Please submit a new specimen for repeat testing if clinically indicated. This testing has not been validated for medico-legal purposes (sexual abuse in jyoti-pubertal and pre-pubertal children, sexual assault, and legal cases). Results from this testing should be interpreted in conjunction with other laboratory and clinical data available to the clinician. Lab Interpretation (test code = 81820-3) [facility] [id number] 13:53:00* Test Item Value Reference Range Interpretation Comme nts URINE CULTURE (test code = 630-4) 10,000 - 100,000 CFU/mL mixed aerobic organisms - suggests endogenous microbial contamination [facility] [id number] 13:53:00* Test Item Value Reference Range Interpretation Comme nts URINE CULTURE (test code = 630-4) 10,000 - 100,000 CFU/mL mixed aerobic organisms - suggests endogenous microbial contamination [facility]2, VZV BY [id number] 21:13:00* Test Item Value Reference Range Interpretation Comme nts Herpes simplex virus type 1 Nucleic Acid (test code = 6795872638) Negative Negative Herpes simplex virus type 2 Nucleic Acid (test code = 6414687400) Positive Negative A Varicella zoster virus Nucle ic Acid (test code = 83375-6) Negative Negative Lab Interpretation (test cod e = 86271-3) [facility], VZV BY [id number] 21:13:00* Test Item Value Reference Range Interpretation Comme nts Herpes simplex virus type 1 Nucleic Acid (test code = 8506178357) Negative Negative Herpes simplex virus type 2 Nucleic Acid (test code = 6473831237) Positive Negative A Varicella zoster virus Nucle ic Acid (test code = 61390-1) Negative Negative Lab Interpretation (test cod e = 85764-6) [facility]normal [facility] & CHLAMYDIA AMPLIFIED [id number] 20:19:00* Test Item Value Reference Range Interpretation Comme nts C. trachomatis Nucleic Acid (test code = 27151-3) Negative Negative N. gonorrhoeae Nucleic Acid (test code = 51348-8) Negative Negative AUBRIE (test code = AUBRIE) Reliable results a re dependent on adequate specimen collection. ? A positive result obtained from a patient after therapeutic treatment cannot be interpreted as indicating the presence of viable organisms. ?For patients on whom a false positive result may have adverse psychosocial impact, retesting is advised. Indeterminate: Unable to generate a valid test result on this specimen. ?Please submit a new specimen for repeat testing if clinically indicated. Chlamydia trachomatis/Neisseria gonorrhoeae nucleic acid amplification testing (NAAT) has not been validated for medico-legal specimens (sexual abuse in jyoti-pubertal and pre-pubertal children, sexual assault, and legal cases). ?Culture for Chlamydia trachomatis and/or Neisseria gonorrhoeae from clinically appropriate sites is the method of choice in these cases. ? Results from this testing should be interpreted in conjunction with other laboratory and clinical data available to the clinician.For females in general, a urine specimen is a second-line option because it is considered less sensitive than a cervical swab for Chlamydia trachomatis and/or Neisseria gonorrhoeae NAAT. Lab Interpretation (test code = 86592-4) [facility] CHLAMYDIA AMPLIFIED [id number] 20:19:00* Test Item Value Reference Range Interpretation Comme nts C. trachomatis Nucleic Acid (test code = 32691-6) Negative Negative N. gonorrhoeae Nucleic Acid (test code = 90591-8) Negative Negative AUBRIE (test code = AUBRIE) Reliable results a re dependent on adequate specimen collection. ? A positive result obtained from a patient after therapeutic treatment cannot be interpreted as indicating the presence of viable organisms. ?For patients on whom a false positive result may have adverse psychosocial impact, retesting is advised. Indeterminate: Unable to generate a valid test result on this specimen. ?Please submit a new specimen for repeat testing if clinically indicated. Chlamydia trachomatis/Neisseria gonorrhoeae nucleic acid amplification testing (NAAT) has not been validated for medico-legal specimens (sexual abuse in jyoti-pubertal and pre-pubertal children, sexual assault, and legal cases). ?Culture for Chlamydia trachomatis and/or Neisseria gonorrhoeae from clinically appropriate sites is the method of choice in these cases. ? Results from this testing should be interpreted in conjunction with other laboratory and clinical data available to the clinician.For females in general, a urine specimen is a second-line option because it is considered less sensitive than a cervical swab for Chlamydia trachomatis and/or Neisseria gonorrhoeae NAAT. Lab Interpretation (test code = 38286-5) [facility] Notes Date/Time Note Provider Source 2023-07-09 12:53:00 QQnI1rzRGWe7cSiZsN2R lF6/x+L+Ooz8rf oSJKLQDp7c+hE3gyc1KDNAxV1LovTL2574 -03-30T12:53:00 Regardiny/f severe abdominal pain, when having bowel movement there was large amount of blood x today----- Message from Ashley Rodas sent at 07/09/2023 12:53 PM CDT -----Meena Stevenson is a 23 year old female 84586-6Aiiilaqwc encounter RexnUS3511-09-67D77:53:40Telephone encounter NoteTXT1.2.840.765826.1.13.104.2.7 .2.752451|[id number] for patient yzty19505-7ZiofWDAUQLMGAKYBacilafe d C-CDA narrative [id number] Hager RNUT[address] Wl[id number] 25OWLRISKFRJUSHXMHZEEPNA1790-18-96 T12:53:401.2.840.391676.1.72.3.15| 1.2.840.428233.1.13.104.2.7.2.7278 [id number] Domonique Lerma RN [facility] 2023-07-09 12:53:00 rSJYQxjNZZgNCn1ZeHH2 4qi6HHHMamisfa RxPc7dqxSWemv1t13OU6+xmFWTl5rc7317 -03-30T12:53:00 Adult Triage AssessmentLast Clinic Visit: 05/06/2023-Nexplanon insertionPrimary Symptom: severe abdominal pain, large amount of blood in the BM, Had BM x 2 this morningOnset / Duration: 0800Location / Description: abdominal area, rectal bleedingPain / Severity: 7/10Associated Symptoms: dizzy, getting hotFever / Method: "I don't think so"Hydration: as usualTreatment so far: noneEffect on ADL's: significant changeLMP: N/APre-existing condition / Immunocompromised: noneReason for Disposition[1] Constant abdominal pain AND [2] present > 2 hoursProtocols used: Rectal Sbfcknhy-VWMNI-IIEin Meena," I am having severe abdominal pain and bleeding when I had a BM"Advised her to have someone take her to the closest ER. She agreed to plan of care. 50372-7Zlcgnmvzz encounter IjneED9613-08-66K14:11:02Telephone encounter NoteTXT1.2.840.990115.1.13.104.2.7 .2.083581|[id number] for patient rsbv15419-7FaemRTRKCVOVPYOUryejmwa d C-CDA narrative textUT[address] Wry[id number] 82SMHEWJTIDMXWSYRDPPHESQ3824-66-75 T13:11:021.2.840.371329.1.72.3.15| 1.2.840.919851.1.13.104.2.7.2.7278 [id number] [facility] 2022-12-17 11:15:00 CrUwXn3/DePEX0Su8hLO BlMzqrVM/8n+GA /BbamQ/WwMAGKAygZupixrEwKb9IQL7880 -09-08T11:15:00 Age: 22 year oldGA: 25w0d 1. Encounter for supervision of other normal in second trimester2. 25 weeks gestation of - No concerns- 28 weeks labs next visit- 2nd trimester teaching given- POCT URINALYSIS W/O SPECIFIC GRAVITY- ADC OR RUDY ONLY - RPR; Future- WORKUP, BLOOD BANK; Future- CBC WITH DIFF; Future- HIV 1/2 AG-AB WITH REFLEX; Future- GLUCOSE 1 HOUR POST PRANDIAL; FutureROB in 3 weeks or PRNVivian L MD Paty 17965-0Arjfganp sdwlUQ3090-28-79Z00:55:11Progress noteTXT1.2.840.595005.1.13.104.2.7 .2.747409|[id number] for patient yciv34655-9TsndHRWDVOMHGH[address] [id number] 96BVHWOXOAKHJLFINDMDEHFT0758-05-75 T11:55:111.2.840.351240.1.72.3.15| 1.2.840.648753.1.13.104.2.7.2.7278 [id number] [facility] 2022-11-19 10:45:00 BbtU5O/nYqoXNK+N6UfJ dcb1M3W0ORiJi3 /LzXSA1YcigxWlUrK0JkaQ9lYLBPtc9323 -08-11T10:45:00 Age: 22 year oldGA: 21w0d 1. Encounter for supervision of other normal in second trimester2. 21 weeks gestation of - no concerns- No obvious anomalies on anatomy aocd8ln trimester teaching given- POCT URINALYSIS W/O SPECIFIC GRAVITYROB in 4 weeks or PRNVivian L MD Paty 77425-1Bonrketf jaboOL1191-88-38W21:58:14Progress noteTXT1.2.840.761065.1.13.104.2.7 .2.953021|[id number] for patient evpi17463-5DmliOVCCIBMPFI[address] [id number] 45MNEAKFPTSWSVZGDHLOMDFE5193-68-41 T18:58:141.2.840.825277.1.72.3.15| 1.2.840.427340.1.13.104.2.7.2.7278 [id number] [facility] 2022-11-12 13:30:00 30OP1bGK2QNslEQ0Jt/Q j2+y/N2Ml57Lrl 9MO1+t3a8TLqyZU5zLd6afpyZImdOz8246 -08-04T13:30:00 Reviewed. Cephalic presentation. JILL wnl; Placenta posterior LT lateral without previa; 47% tile EFW; Cervix 4.47 cm, wnl.Emma Hu NP 11/14/2022 12:26 PM 84515-4Fvohmzww uwkcYB9340-98-45X98:26:27Progress noteTXT1.2.840.575269.1.13.104.2.7 .2.361424|[id number] for patient foym15848-0CvqbSOUTU-SUVAFLKYI NURSE LINE CLEARANCE FOREMAN MIDLEVEL PROVIDERCNM-CERTIFIED NURSE LINE CLEARANCE FOREMAN MIDLEVEL PROVIDER[address] Vj[id number] 74BTNFJGPRYHXPEKQDBWVQOS9530-63-82 T12:26:271.2.840.201768.1.72.3.15| 1.2.840.559028.1.13.104.2.7.2.7278 [id number] CNM-CERTIFIED NURSE LINE CLEARANCE FOREMAN MIDLEVEL PROVIDER [facility]
[2023-07-09 14:18] LABS: Absolute Basophils 0.1 K/uL (0-0.5); Absolute Eosinophils 0.1 K/uL (0-0.5); Absolute Monocytes 0.8 K/uL (0.1-1.3); Absolute Neutrophil 15.3 K/uL (1.8-8.0); Basophils % 0.4 % (0-1.3); Eosinophils % 0.4 % (0-4.4); Hematocrit 37.3 % (36.0-45.0); Hemoglobin 12.3 g/dL (12.0-15.0); Lymphocytes % 10.9 % (15.3-44.8); MCH 26.3 pg (27.0-35.0); MCV 79.7 fL (80-100); MPV 7.8 fL (7.6-11.3); Monocytes % 4.5 % (3.3-12.3); Neutrophils % 83.8 % (41.7-73.7); Platelets 409 thou/uL (152-406); RBC Red Blood Cell Count 4.68 M/uL (3.86-4.86); Red Cell Distribution Width 14.5 % (12.1-15.2)
[2023-07-09 14:35] LABS: Albumin 3.8 g/dL (3.4-5.0); Albumin/Globulin Ratio 0.8 (1.1-1.8); Anion Gap 11.6 mEq/L (5.0-15.0); Bilirubin Total 0.3 mg/dL (0.2-1.0); Globulin 4.6 g/dL (2.3-3.5); Potassium 3.6 mEq/L (3.5-5.1); Protein, Total 8.4 g/dL (6.4-8.2)
[2023-07-09 14:39] LABS: Sqamous Epithelial <5 /HPF (None Seen); Urine Bacteria None Seen /HPF (<20); Urine Bilirubin NEGATIVE (Negative); Urine Blood Negative (Negative); Urine Clarity Extremely Turbid (Clear); Urine Color Light-Yellow (Yellow); Urine Culture Reflex Order NOT NEEDED; Urine Glucose NEGATIVE (Negative); Urine Ketones NEGATIVE (Negative); Urine Microscopic Reflex YN ORDER UMIC; Urine Mucus 2+ /HPF (None Seen); Urine Nitrite NEGATIVE (Negative); Urine Protein NEGATIVE (Negative); Urine RBC <5 /HPF (None Seen); Urine Urobilinogen Normal (Normal); Urine WBC <5 /HPF (<5); Urine pH 5.5 (5.0-7.0)
--- NOTE | 2023-07-09 15:29 | RAD REPORT ---
EXAM DESCRIPTION: CT - Abdomen Pelvis W Contrast - 07/09/2023 3:11 pm CLINICAL HISTORY: Abdominal pain hematochezia COMPARISON: none. TECHNIQUE: Computed axial tomography of the abdomen pelvis was obtained. 100 cc Isovue-300 was admin istered intravenously. Oral contrast was not requested which limits evaluation of bowel and appendix All CT scans are performed using dose optimization technique as appropriate and may include automated exposure control or mA/KV adjustment according to patient size. FINDINGS: The liver, spleen, pancreas, adrenal and kidneys appear unremarkable. There is no evidence of diverticulitis. No adnexal mass. Low-density area within the uterus may represent a fibroid Small umbilical hernia Appendix is not well visualized secondary to the lack of oral contrast. However, there does appear to be a tubular structure arising from the cecum. This probably is a mildly a dilated appendix. Minimal adjacent stranding. IMPRESSION: There probably is appendicitis. This should be correlated clinically.
--- NOTE | 2023-07-09 16:03 | ER ---
Nurse's Notes [facility] Name: Meena Owens Age: 23 yrs Sex: Female : 2000 Arrival Date: 07/09/2023 Time: 13:21 Bed 7 Private MD: Diagnosis: acute appendicitis Presentation: 07/08 13:46 Chief complaint: Patient states: Abdominal pain with bloody stool since 9 AM. Has had 3 ll1 episodes of rectal bleeding in the past month. Coronavirus screen: Client denies travel out of the [place] in the last 14 days. At this time, the client does not indicate any symptoms associated with coronavirus-19. Ebola Screen: Patient denies travel to an Ebola-affected area in the 21 days before illness onset. Initial Sepsis Screen: Does the patient meet any 2 criteria? No. Patient's initial sepsis screen is negative. Does the patient have a suspected source of infection? No. Patient's initial sepsis screen is negative. Risk Assessment: Do you want to hurt yourself or someone else? Patient reports no desire to harm self or others. Onset of symptoms was July 09, 2023. 13:46 Method Of Arrival: Ambulatory ll1 13:46 Acuity: ARTURO 3 ll1 Triage Assessment: 13:46 General: Appears uncomfortable, Behavior is calm, cooperative, appropriate for age. ll1 Pain: Complains of pain in abdomen Quality of pain is described as aching, crampy. GI: Reports lower abdominal pain, cramping, rectal bleeding. 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 - Social history:: Smoking status: Patient denies any tobacco usage or history of. Screenin:[address] [facility] ED Fall Risk Assessment (Adult) History of falling in the last 3 months, mb9 including since admission No falls in past 3 months (0 pts) Confusion or Disorientation No (0 pts) Intoxicated or Sedated No (0 pts) Impaired Gait No (0 pts) Mobility Assist Device Used Yes (1 pt) Altered Elimination No (0 pt) Score/Fall Risk Level 0 - 2 = Low Risk Oriented to surroundings, Maintained a safe environment, Educated pt \T\ family on fall prevention, incl call for assistance when getting out of bed. Abuse screen: Denies threats or abuse. Nutritional screening: No deficits noted. Tuberculosis screening: No symptoms or risk factors identified. Assessment: 14:19 Pain: Complains of pain in abdomen. Neuro: Neil Agitation-Sedation Scale (RASS): 0 mb9 - Alert and Calm Level of Consciousness is awake, alert, obeys commands, Oriented to person, place, time, situation, Appropriate for age. Cardiovascular: Patient's skin is warm and dry. Respiratory: Airway is patent Respiratory effort is even, unlabored, Respiratory pattern is regular, symmetrical. GI: Abdomen is round non-distended, Bowel sounds present X 4 quads. Abd is soft Abdomen is tender to palpation in right upper quadrant and left upper quadrant Reports bloody stool, nausea. : Urine is clear. EENT: No signs and/or symptoms were reported regarding the EENT system. Derm: Skin is pink, warm \T\ dry. Musculoskeletal: Range of motion: intact in all extremities. 15:32 Reassessment: No changes from previously documented assessment. Patient and/or family mb9 updated on plan of care and expected duration. Pain level reassessed. Patient is alert, oriented x 3, equal unlabored respirations, skin warm/dry/pink. 16:24 Reassessment: No changes from previously documented assessment. Patient and/or family mb9 updated on plan of care and expected duration. Pain level reassessed. Patient is alert, oriented x 3, equal unlabored respirations, skin warm/dry/pink. Vital Signs: 13:46 BP 132 / 73; Pulse 78; Resp 17; Temp 98.4; Pulse Ox 99% on R/A; Pain 6/10; ll1 15:32 BP 122 / 74; Pulse 71; Resp 16; Pulse Ox 100% on R/A; mb9 13:46 Pain Scale: Adult ll1 ED Course: 13:23 Patient arrived in ED. ra3 13:26 Rafaela Rowe PA-C is PHCP. sb4 13:26 Jacob Pineda DO is Attending Physician. sb4 13:46 Arm band placed on. ll1 13:47 Triage completed. ll1 14:02 Mya Guadarrama, RN is Primary Nurse. db 14:02 Patient placed in an exam room, on a stretcher. ll1 14:15 Primary Nurse role handed off by Mya Guadarrama, RN mb9 14:15 Ankita Lopez, RN is Primary Nurse. mb9 14:15 Initial lab(s) drawn, by me, sent to lab. Urine collected: clean catch specimen, clear. mb9 Inserted saline lock: 20 gauge in right antecubital area, using aseptic technique. Blood collected. 14:19 CBC with Diff Sent. mb9 14:19 CMP Sent. mb9 14:19 Lipase Sent. mb9 14:19 Test, Urine Sent. mb9 14:19 Urinalysis w/ reflexes Sent. mb9 14:20 Placed in gown. Bed in low position. Call light in reach. Side rails up X 1. Client mb9 placed on continuous cardiac and pulse oximetry monitoring. NIBP monitoring applied. Door closed. Noise minimized. Warm blanket given. 14:20 No provider procedures requiring assistance completed. mb9 15:12 CT Abd/Pelvis - IV Contrast Only In Process Unspecified. EDMS 16:02 Brian Ivan MD is Hospitalizing Provider. sb4 16:12 Second set of blood cultures drawn by me. mb9 16:24 Blood Culture Adult (2) Sent. mb9 16:24 Lactate w/ 2H reflex if indic. Sent. mb9 16:24 Protime (+inr) Sent. mb9 16:24 Ptt, Activated Sent. mb9 16:25 First set of blood cultures drawn by me. mb9 16:25 Inserted saline lock: 22 gauge in right hand, using aseptic technique. mb9 16:40 Patient admitted, IV remains in place. mb9 Administered Medications: 16:31 Drug: Piperacillin-Tazobactam IVPB 3.375 grams IVPB once over 60 mins; (mix in NS 100 mb9 mL) Route: IVPB; Infused Over: 60 mins; Site: right hand; 16:41 Follow up: Response: No adverse reaction; IV Status: Infusion continued upon admission mb9 Medication: 14:20 VIS not applicable for this client. mb9 Outcome: 16:02 Decision to Hospitalize by Provider. sb4 16:41 Admitted to OR accompanied by nurse, via wheelchair, Report called to JACKIE Devi9 16:41 Condition: stable 16:41 Instructed on the need for admit, 16:41 Patient left the ED. mb9 Signatures: Dispatcher [employer] Kailash Johnson RN RN ll1 Mya Guadarrama RN Rafaela Vizcaino PAAna Luisa PAAna Luisa sb4 Jessica, Ankita Luciano RN RN mb9 Debra Willard ra3 Corrections: (The following items were deleted from the chart) 14:02 13:47 Arm band placed on Patient placed in an exam room, on a stretcher, ll1 ll1
--- NOTE | 2023-07-09 16:03 | EDPHYS ---
Physician Documentation [facility] Name: Meena Owens Age: 23 yrs Sex: Female : 2000 Arrival Date: 07/09/2023 Time: 13:21 Bed 7 Private MD: ED Physician Jacob Pineda HPI: 07/08 14:05 This 23 yrs old Female presents to ER via Ambulatory with complaints of Abdominal Pain, sb4 Bloody Stools. 14:06 . sb4 14:10 . sb4 17:18 Patient reports lower abdominal pain that began this morning. She also reports bright sb4 red blood in the toilet after a bowel movement. She states that she has had blood when wiping a few times in the past couple months. She denies any vomiting or diarrhea. She does not have any chronic medical problems or take any daily medication. 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 - Social history:: Smoking status: Patient denies any tobacco usage or history of. ROS: 17:18 Constitutional: Negative for fever, chills, and weight loss, sb4 17:18 Abdomen/GI: Positive for abdominal pain, rectal bleeding, 17:18 All other systems are negative, Exam: 17:18 Constitutional: This is a well developed, well nourished patient who is awake, alert, sb4 and in no acute distress. Head/Face: Normocephalic, atraumatic. Eyes: Extra-ocular motions intact. Periorbital areas with no swelling, redness, or edema. ENT: Mucous membranes moist. Cardiovascular: Regular rate and rhythm with a normal S1 and S2. Respiratory: Lungs have equal breath sounds bilaterally, clear to auscultation and percussion. No rales, rhonchi or wheezes noted. No increased work of breathing, no retractions or nasal flaring. Skin: Warm, dry with normal turgor. Normal color with no rashes, no lesions, and no evidence of cellulitis. MS/ Extremity: Pulses equal, no cyanosis. Neurovascular intact. Full, normal range of motion. Neuro: Awake and alert, GCS 15, oriented to person, place, time, and situation. Motor strength 5/5 in all extremities. Sensory grossly intact. 17:18 Abdomen/GI: Inspection: abdomen appears normal, Bowel sounds: normal, Palpation: soft, mild abdominal tenderness, in the suprapubic area, Rectal exam: rectal tone normal, Stool: normal, hemorrhoid(s), internal, Vital Signs: 13:46 BP 132 / 73; Pulse 78; Resp 17; Temp 98.4; Pulse Ox 99% on R/A; Pain 6/10; ll1 15:32 BP 122 / 74; Pulse 71; Resp 16; Pulse Ox 100% on R/A; mb9 13:46 Pain Scale: Adult ll1 MDM: 13:40 Patient medically screened. sb4 17:18 Data reviewed: vital signs, nurses notes, lab test result(s), radiologic studies, and sb4 as a result, I will admit patient. Consideration of Admission/Observation Patient was admitted/placed on observation. Management of patient was discussed with the following: University Counselor: bertha, will take to OR now. Counseling: I had a detailed discussion with the patient and/or guardian regarding the historical points, exam findings, and any diagnostic results supporting the discharge/admit diagnosis, lab results, radiology results, the need for further work-up and treatment in the hospital. 07/08 13:49 Order name: CBC with Diff; Complete Time: 14:24 sb4 07/08 13:49 Order name: CMP; Complete Time: 14:37 sb4 07/08 13:49 Order name: Lipase; Complete Time: 14:37 sb4 07/08 13:49 Order name: Test, Urine; Complete Time: 14:37 sb4 07/08 13:49 Order name: Urinalysis w/ reflexes; Complete Time: 14:40 sb4 07/08 15:46 Order name: Blood Culture Adult (2) sb4 07/08 15:46 Order name: Lactate w/ 2H reflex if indic. sb4 07/08 15:46 Order name: Protime (+inr); Complete Time: 16:36 sb4 07/08 15:46 Order name: Ptt, Activated; Complete Time: 16:36 sb4 07/08 13:49 Order name: CT Abd/Pelvis - IV Contrast Only; Complete Time: 15:45 sb4 07/08 13:49 Order name: IV Saline Lock; Complete Time: 14:19 sb4 07/08 13:49 Order name: Labs collected and sent; Complete Time: 14:19 sb4 Administered Medications: 16:31 Drug: Piperacillin-Tazobactam IVPB 3.375 grams IVPB once over 60 mins; (mix in NS 100 mb9 mL) Route: IVPB; Infused Over: 60 mins; Site: right hand; 16:41 Follow up: Response: No adverse reaction; IV Status: Infusion continued upon admission mb9 Disposition: 14:49 I was immediately available on-site in the Emergency Department for consultation in the ms3 care of the patient. Disposition Summary: 07/09/23 16:02 Hospitalization Ordered Notes: Provider: Brian Ivan sb4 Condition: Fair sb4 Problem: new sb4 Symptoms: are unchanged sb4 Bed/Room Type: Standard sb4 Hospitalization Status: Observation(07/09/23 16:22) sb4 Location: Operating Room(07/09/23 16:22) sb4 Room Assignment: (07/09/23 16:22) sb4 Diagnosis - acute appendicitis sb4 Forms: - Medication Reconciliation Form sb4 - SBAR form sb4 - Leadership Thank You Letter sb4 Signatures: Dispatcher [employer] EDKailash Perez, RN RN ll1 Jacob Pineda DO DO ms3 Rafaela Rowe PA-C PAAna Luisa sb4 Ankita Lopez RN RN mb9 Corrections: (The following items were deleted from the chart) 13:50 13:50 CBC+H.LAB.BRZ ordered. EDMS EDMS 13:50 13:50 COMPREHENSIVE METABOLIC PANEL+C.LAB.BRZ ordered. EDMS EDMS 13:50 13:50 LIPASE+C.LAB.BRZ ordered. EDMS EDMS 13:50 13:50 Test, Urine+UC.LAB.BRZ ordered. EDMS EDMS 13:50 13:50 Urinalysis+U.LAB.BRZ ordered. EDMS EDMS 13:50 13:50 Abdomen Pelvis W Con+CT.RAD.BRZ ordered. EDMS EDMS 14:07 14:05 The patient presents with abdominal pain right lower quadrant, sb4 sb4 14:10 14:06 . sb4 sb4 15:47 15:47 BLOOD CULTURE*+BA.LAB.BRZ ordered. EDMS EDMS 15:47 15:47 LACTATE+C.LAB.BRZ ordered. EDMS EDMS 15:47 15:47 PROTIME (+INR)+COAG.LAB.BRZ ordered. EDMS EDMS 15:47 15:47 PTT, ACTIVATED+COAG.LAB.BRZ ordered. EDMS EDMS 16:22 16:02 Inpatient Admission sb4 sb4 16:22 16:02 Telemetry/MedSurg (Inpatient) sb4 sb4 16:22 16:02 sb4 sb4
[2023-07-09] MEDS ORDERED: PIPERACIL/TAZO 3.375 GM VIAL IV ONE (16:16)
[2023-07-09] MEDS ORDERED: NA CHLORIDE 0.9% 100 ML ONE (16:16)
[2023-07-09 16:35] LABS: PT Prothrombin Time 13.6 SECONDS (9.5-12.5); PTT, Activated Partial Thromb 32.3 SECONDS (24.3-36.9); Protime INR 1.24
[2023-07-09] MEDS ORDERED: ROCURONIUM 50 MG/5 ML VIAL IV ONE (16:42)
[2023-07-09] MEDS ORDERED: FENTANYL CITR 100 MCG/2 ML ONE (16:42)
[2023-07-09] MEDS ORDERED: MIDAZOLAM HCL 2 MG/2 ML INJ ONE (16:42)
[2023-07-09] MEDS ORDERED: propofoL 200 MG/20 ML VIAL IV ONE (16:42)
[2023-07-09] MEDS ORDERED: ONDANSETRON 4 MG/2 ML VIAL ONE (16:43)
[2023-07-09] MEDS ORDERED: GLYCOPYRROLATE 0.2 MG/ML SYR ONE (16:43)
[2023-07-09] MEDS ORDERED: KETOROLAC 30 MG/ML INJ ONE (16:43)
[2023-07-09] MEDS ORDERED: dexAMETHasone 4 MG/ML VIAL ONE (16:44)
[2023-07-09] MEDS ORDERED: NEOSTIGMINE 1 MG/ML -10 ML VIAL ONE (16:44)
[2023-07-09] MEDS ORDERED: LIDOCAINE 1% MPF 5 ML VIAL ONE (16:44)
[2023-07-09 16:50] VITALS: O2SAT 100
[2023-07-09] MEDS: NA CHLORIDE 0.9% 1,000 ML ONE (16:50)
--- NOTE | 2023-07-09 17:15 | P.PN ---
Date of Service: 07/09/23 - I have informed patient of her umbilical hernia - I have informed patient to pump and dump breast milk and not breast feed for at least 24 hours after taking any pain medication except Tylenol over the counter and it is not to be combined with any Rx or other pain medication - I have instructed her and her signicant other to speak with her postal delivery officer about medications and instructions with breast feeding after surgery and to review medications and when to restart breast feeding after surgery prior to starting breast feeding.
[2023-07-09] MEDS: BUPIVACAINE 0.25% PF 30 ML VIAL ONE (17:41)
--- NOTE | 2023-07-09 18:06 | P.OP ---
Preoperative diagnosis: Acute non-perforated appendicitis Postoperative diagnosis: Acute non-perforated appendicitis Primary procedure: Laparoscopic Appendectomy Anesthesia: GETA + Local Estimated blood loss: <10cc Specimen: Vermiform Appendix Findings: Appendicitis - dilated, non-perforated Complications: None Transferred to: Recovery Room Condition: Good
[2023-07-09] MEDS: MEPERIDINE HCL 25 MG/ML SYR ONE (18:25)
[2023-07-09] MEDS: HYDROMORPHONE HCL 1 MG/ML INJ ONE (18:30)
[2023-07-09 18:32] VITALS: TEMP 98
[2023-07-09] MEDS: ONDANSETRON 4 MG/2 ML VIAL ONE (18:35)
[2023-07-09] MEDS: HYDROCODONE/APAP 5/325 MG TAB ONE (19:20)
--- NOTE | 2023-07-09 20:05 | HP ---
Date of Admission: 07/09/2023 Brief History Of Present Illness: The patient is a 23-year-old female with no significant past medic al history who presents post delivery of a child 3 months ago, currently still breastfeedin g, who presents with new onset periumbilical abdominal pain which radiated down into lower abdominal quadrants shifting slightly to the right lower quadrant. She states she has never had similar episod es before in the past. No sick contacts. No recent travel. No new food exposures. She did have so me blood in her bowel movements this morning, but she has been having some constipation over the last 3-4 days, which is not atypical for her and she notes that there has been some blood in her stools s radha she has had this significant constipation with wiping. It has been bright red predominantly. S he does not feel it is associated with the current symptoms as this bleeding started prior to her abd ominal pain onset which began earlier this morning. She has had some nausea as well associated with no emesis and decreased appetite. She has had some slight subjective chills but no fever measured. Past Medical History: Negative. Past Surgical History: . Allergies: NO KNOWN DRUG ALLERGIES. Medications: None. Social History: She denies smoking, alcohol, recreational drug use. Review of Systems: Ten-point review of systems other than HPI denies. Physical Examination: General: At time of my examination, she is awake, alert, oriented. Psychiatric: Appropriate, conversive. HEENT: Normocephalic. Sclerae anicteric. Mucous membranes are moist. Oropharynx is clear. Neck: Supple without JVD. Chest: Normal expansion, excursion. Cardiovascular: Regular rate and rhythm. Pulmonary: Clear to auscultation bilaterally. Abdomen: Soft with positive right lower quadrant tenderness to palpation. Positive focal peritoniti s at McBurney's point. She has a reducible periumbilical hernia. No other focality appreciated in t he other abdominal quadrants. Extremities: No clubbing, cyanosis, edema. Skin: Warm, dry. Laboratory Data: White blood count of 18.2, hemoglobin is 12.3, hematocrit of 37.3, platelet count w as 409, neutrophils are 83%. Her sodium is 138, potassium 3.8, chloride 106, carbon dioxide is 24, B UN 12, creatinine 0.6, glucose is 98. Lactic acid 0.7. Total bilirubin 0.3, AST 20, ALT 59, alkalin e phosphatase 172, her lipase is 26. Her urinalysis shows some turbidity, otherwise negative. Urine test is also negative. PT 13.6, INR 1.24, PTT is 32.3. She had a CT scan of the abdomen and pelvis officially read as probably appendicitis, should be correlated clinically. The appendix i s not well visualized secondary to lack of oral contrast. However, there does appear to be a tubular structure arising from the cecum, probably mildly dilated appendix, mild adjacent stranding as well. Assessment And Plan: This is a 23-year-old female who comes in with signs and symptoms of possible e dawn appendicitis. 1.IV fluid hydration. 2.Antibiotic coverage. 3.I have explained risks, benefits, alternatives of laparoscopic possible open appendectomy includin g, but not limited to bleeding, infection, damage to surrounding tissue, need for further operation a nd procedure. The patient agreed to proceed as indicated. TAIWO/HERSON Voice ID: [id number]
[2023-07-09 20:19] VITALS: BP 122/65
--- NOTE | 2023-07-09 20:20 | OP ---
Date of Procedure: 07/09/2023 Surgeon: Brian Ivan MD, Preoperative Diagnosis: Acute nonperforated appendicitis. Postoperative Diagnosis: Acute nonperforated appendicitis. Procedure Performed: Laparoscopic appendectomy. Anesthesia: General endotracheal plus local with 0.25% Marcaine. Estimated Fluid Loss: Less than 20 cc. Specimen: Vermiform appendix. Findings: Acute nonperforated appendicitis with dilation. Umbilical hernia. Complication: None. The patient transferred to recovery room in good condition. Procedure In Detail: After informed consent was obtained, the patient was brought to the operating r oom, prepped and draped in the usual sterile fashion. After adequate anesthesia was achieved, infrau mbilical area was anesthetized with 0.25% Marcaine, sharply incised and a 5 mm zero degree optical tr ocar was introduced into the abdomen without incident or complication. Insufflation was obtained to 15 mmHg at this time. There was no injury to vital structures upon entering the abdomen. Two additi onal trocars were placed, one in the supraumbilical position, one in the right lower quadrant. Both of these were 5 mm trocars placed under direct visualization without incident or complication. The u mbilical trocar was then upsized to 12 mm under direct visualization without incident or complication . An umbilical hernia was noted. Dissection continued down in the right lower quadrant after placin g the patient in steep Trendelenburg position with the right side rotation up. I then grasped the ap pendix, elevated it, and created a mesenteric window through the mesoappendix using a [place] retrac tor. EndoGIA 45 purple load fired across the base of the appendix with good approximation of tissues . The LigaSure device was used to take down the mesoappendix without incident or complication. Ther e was significant inflammatory change to the right lower quadrant. However this was handled efficien tly with the LigaSure device. The appendix was then placed in EndoCatch bag, removed via the umbilic al trocar site, sent off for pathologic examination. The area was copiously irrigated as well as the pelvis. No additional pathologic findings were appreciated. Umbilical hernia was noted, but the tr ocar introduction did not encompass this portion of the hernia defect. At this point, the patient po sitioned back in neutral position, remaining effluent was suctioned out. The umbilical trocar site w as closed using a Jenaro-Carlos suture passer with 0 Vicryl in interrupted fashion with good approx imation of tissues. Abdomen was desufflated under direct visualization without complication. All re maining trocars removed. All skin edges were then copiously irrigated and closed with 4-0 Monocryl i n running fashion. Dermabond placed over top. The patient tolerated the procedure well without inci dent or complication and transferred to PACU in good condition. All counts were correct at the end o f the case. TAIWO/HERSON Voice ID: [id number] Report ID: [id number]
== END 2023-07-09 20:05 | disposition home or self-care (01) ==
LOC: ER 13:21 → ERHOLD 17:04 → ER 17:04 → DS 17:04 → ER 19:19 → DS 20:05
PROVIDERS: ATTEND Surgery
PROC: 0DTJ4ZZ Resection of Appendix, Percutaneous Endoscopic Approach (ICD-10-PCS; principal; 2023-07-09 17:00)
DX: K35.80 Unspecified acute appendicitis (principal)
CPT/HCPCS: 87040 ×2; 85025; 81001; 36415; 81025; 85610; 83605; 88304; 85730; 83690; 80053; 74177; 96374; 99285; 44970; Q9967; J2704; J1100; J2710; J2001; J2543; J2250; J3010; J2175; J1170; J2405 ×2; J7030

== ENCOUNTER 2023-07-12 04:54 | Emergency (ER) | payer OTHER ==
--- OUTSIDE RECORDS SUMMARY | 2023-07-12 04:59 | XMS REPORT | Continuity of Care Document ---
Author Name Unknown Address [address] [facility] [address] [place] [address] [facility] Address [address] [facility] [address] [place] [address] Care Team Providers Care Spouter Name Role Phone Pcp, Patient Does Not Have A Primary Care Physic jt [facility] [place] Attending Clinician Unavailable Domonique Lerma RN Attending Clinician Unavailable Spring Newman MD Attending Clinician [phone] Doctor Unassigned, Anon Raices Attending Clinician U darleen Neely MD, Jim Baxter Attending Clinician + [phone] Walker Lopez MD Attending Clinician [phone] Tito Malone CRNA Attending Clinician + [phone], [facility] Attending Clinician Unavailable Emma Hu NP Attending Clinician + [phone] EZRA GOYAL Attending Clinician Unavailable EZRA GOYAL Attending Clinician Unavailable Ultrasound, Ang-Mfm Attending Clinician Unavaila ble Lab, Ang - Db Attending Clinician Unavailable Dickson Leslie Attending Clinician [phone] LISBETH SANTANA Attending Clinician Unavaila Lisbeth Joseph Attending Clinician [phone] Deon Morales Attending Clinician [phone] DICKSON ANTOINE Attending Clinician Unavailable [facility] [...] delivery Disease Active 2022-04 2-16 00:00: 00 [facility] Encounter for elective induction of labor Encounter for elective induction of labor Disease Active 2022-04 2-15 00:00: 00 [facility] 39 weeks gestation of 39 weeks gestation of Disease Active 2022-04 2-15 00:00: 00 [facility] History of herpes genitalis History of herpes genitalis Disease Active 2022-04 2-15 00:00: 00 [facility] 16 weeks gestation of 16 weeks gestation of Disease Active 7-11 00:00: 00 [facility] Obesity (BMI 30-39.9) Obesity (BMI 30-39.9) Disease Active 6-13 00:00: 00 [facility] No known active problems No known active problems Disease [facility] Genital herpes Genital herpes Disease Active [facility] Allergies, Adverse Reactions, Alerts Allergy Name Allergy Type Status Severity Reaction(s) Onset Date Inactive Date Treating Clinician Comments Source NO KNOWN ALLERGIE S Drug Class Active [facility] Social History Social Habit Start Date Stop Date Quantity Comments Source ASSERTION 2022-07-09 00:00:00 [facility] History SDOH Alcohol Comment [facility] History of Social function 2023-05-06 00:00:00 2023-05-06 00:00:00 [facility] Alcohol intake 2023-04-15 00:00:00 2023-04-15 00:00:00 .57 /d [facility] Exposure to SARS-CoV-2 (event) 2022-08-15 00:00:00 2022-08-25 14:48:00 Not sure [facility] Tobacco use and exposure 2022-08-25 00:00:00 2022-08-25 00:00:00 Smokeless tobacco non-user [facility] History SDOH Alcohol Frequency 2020-04-24 00:00:00 2020-04-24 00:00:00 2 [facility] History SDOH Alcohol Std Drinks 2020-04-24 00:00:00 2020-04-24 00:00:00 1 [facility] History SDOH Alcohol Binge 2020-04-24 00:00:00 2020-04-24 00:00:00 99 [facility] Sex Assigned At 2002 00:00:00 2000 00:00:00 [facility] Smoking Status Start Date Stop Date Source Never smoked tobacco [facility] Medications Ordered Medication Name Filled Medication Name Start Date Stop Date Current Medication? Ordering Clinician Indication Dosage Frequency Signature (SIG) Comments Components Source etonogestre L (NEXPLANON) implant 68 mg 05-07 00:15: 00 05-06 23:25 :00 No [id number] 68mg [facility] etonogestre L (NEXPLANON) implant 68 mg 05-07 00:15: 00 05-06 23:25 :00 No [id number] 68mg 68 mg, Subdermal, ONCE NOW, 1 dose, On Tue05/06/23 at 1815, Routine
Use approved by: PUBLICIST [facility] ibuprofen (IBU) tablet 600 mg 2022-04 20:00: 00 Yes 600mg 600 mg, Oral, Q6H, First dose on 03/27/23 at 1400, Until Discontinu ed, Routine [facility] ibuprofen (IBU) tablet 600 mg 2022-04 20:00: 00 Yes 600mg 600 mg, Oral, Q6H, First dose on 03/27/23 at 1400, Until Discontinu ed, Routine [facility] HYDROcodone -acetaminop hen (NORCO 5) 5-325 mg tablet 2 tablet 2022-04 18:00: 00 Yes 2{tbl} 2 tablet, Oral, Q6HPRN, Starting on Tue03/27/23 at 1200, Until Discontinu ed, Routine, Pain (scale 7-10), Alternate with Ibuprofen [facility] HYDROcodone -acetaminop hen (NORCO 5) 5-325 mg tablet 1 tablet 2022-04 18:00: 00 Yes 1{tbl} 1 tablet, Oral, Q6HPRN, Starting on Tue03/27/23 at 1200, Until Discontinu ed, Routine, Pain (scale 4-6), Alternate with Ibuprofen [facility] HYDROcodone -acetaminop hen (NORCO 5) 5-325 mg tablet 2 tablet 2022-04 18:00: 00 Yes 2{tbl} 2 tablet, Oral, Q6HPRN, Starting on 03/27/23 at 1200, Until Discontinu ed, Routine, Pain (scale 7-10), Alternate with Ibuprofen [facility] HYDROcodone -acetaminop hen (NORCO 5) 5-325 mg tablet 1 tablet 2022-04 18:00: 00 Yes 1{tbl} 1 tablet, Oral, Q6HPRN, Starting on Tue03/27/23 at 1200, Until Discontinu ed, Routine, Pain (scale 4-6), Alternate with Ibuprofen [facility] ketorolac (TORADOL) injection 30 mg 2022-04 02:00: 00 03-27 12:46 :00 No 30mg 30 mg, Slow IV Push, Q6H, 3 doses, First dose on 03/26/23 at 2000, Last dose on 03/27/23 at 0600, Routine [facility] gabapentin 300 mg capsule 2022-04 00:00: 00 Yes [id number] 300mg Take 1 capsule by mouth in the morning and 1 capsule at noon and 1 capsule in the evening. [facility] ibuprofen 600 mg tablet 2022-04 00:00: 00 Yes [id number] 600mg Take 1 tablet by mouth every 6 (six) hours. [facility] vitamin w/FA tablet 2022-04 00:00: 00 Yes [id number] 1{tbl} Take 1 tablet by mouth in the morning. [facility] docusate 100 mg capsule 2022-04 00:00: 00 Yes [id number] 200mg Take 2 capsules by mouth once daily as needed for Constipati on. [facility] ferrous sulfate 325 mg (65 mg iron) tablet 2022-04 00:00: 00 Yes [id number] 325mg Take 1 tablet by mouth in the morning and 1 tablet in the evening. [facility] gabapentin 300 mg capsule 2022-04 00:00: 00 Yes [id number] 300mg Take 1 capsule by mouth in the morning and 1 capsule at noon and 1 capsule in the evening. [facility] ibuprofen 600 mg tablet 2022-04 00:00: 00 Yes [id number] 600mg Take 1 tablet by mouth every 6 (six) hours. [facility] vitamin w/FA tablet 2022-04 00:00: 00 Yes [id number] 1{tbl} Take 1 tablet by mouth in the morning. [facility] docusate 100 mg capsule 2022-04 00:00: 00 Yes [id number] 200mg Take 2 capsules by mouth once daily as needed for Constipati on. [facility] ferrous sulfate 325 mg (65 mg iron) tablet 2022-04 00:00: 00 Yes [id number] 325mg Take 1 tablet by mouth in the morning and 1 tablet in the evening. [facility] gabapentin 300 mg capsule 2022-04 00:00: 00 Yes [id number] 300mg Take 1 capsule by mouth in the morning and 1 capsule at noon and 1 capsule in the evening. [facility] ibuprofen 600 mg tablet 2022-04 00:00: 00 Yes [id number] 600mg Take 1 tablet by mouth every 6 (six) hours. [facility] vitamin w/FA tablet 2022-04 00:00: 00 Yes [id number] 1{tbl} Take 1 tablet by mouth in the morning. [facility] docusate 100 mg capsule 2022-04 00:00: 00 Yes [id number] 200mg Take 2 capsules by mouth once daily as needed for Constipati on. [facility] ferrous sulfate 325 mg (65 mg iron) tablet 2022-04 00:00: 00 Yes [id number] 325mg Take 1 tablet by mouth in the morning and 1 tablet in the evening. [facility] gabapentin 300 mg capsule 2022-04 00:00: 00 Yes [id number] 300mg Take 1 capsule by mouth in the morning and 1 capsule at noon and 1 capsule in the evening. [facility] ibuprofen 600 mg tablet 2022-04 00:00: 00 Yes [id number] 600mg Take 1 tablet by mouth every 6 (six) hours. [facility] vitamin w/FA tablet 2022-04 00:00: 00 Yes [id number] 1{tbl} Take 1 tablet by mouth in the morning. [facility] docusate 100 mg capsule 2022-04 00:00: 00 Yes [id number] 200mg Take 2 capsules by mouth once daily as needed for Constipati on. [facility] ferrous sulfate 325 mg (65 mg iron) tablet 2022-04 00:00: 00 Yes [id number] 325mg Take 1 tablet by mouth in the morning and 1 tablet in the evening. [facility] gabapentin 300 mg capsule 2022-04 00:00: 00 Yes [id number] 300mg Take 1 capsule by mouth in the morning and 1 capsule at noon and 1 capsule in the evening. [facility] ibuprofen 600 mg tablet 2022-04 00:00: 00 Yes [id number] 600mg Take 1 tablet by mouth every 6 (six) hours. [facility] vitamin w/FA tablet 2022-04 00:00: 00 Yes [id number] 1{tbl} Take 1 tablet by mouth in the morning. [facility] docusate 100 mg capsule 2022-04 00:00: 00 Yes [id number] 200mg Take 2 capsules by mouth once daily as needed for Constipati on. [facility] ferrous sulfate 325 mg (65 mg iron) tablet 2022-04 00:00: 00 Yes [id number] 325mg Take 1 tablet by mouth in the morning and 1 tablet in the evening. [facility] gabapentin 300 mg capsule 2022-04 00:00: 00 Yes [id number] 300mg Take 1 capsule by mouth in the morning and 1 capsule at noon and 1 capsule in the evening. [facility] ibuprofen 600 mg tablet 2022-04 00:00: 00 Yes [id number] 600mg Take 1 tablet by mouth every 6 (six) hours. [facility] vitamin w/FA tablet 2022-04 00:00: 00 Yes [id number] 1{tbl} Take 1 tablet by mouth in the morning. [facility] docusate 100 mg capsule 2022-04 00:00: 00 Yes [id number] 200mg Take 2 capsules by mouth once daily as needed for Constipati on. [facility] ferrous sulfate 325 mg (65 mg iron) tablet 2022-04 00:00: 00 Yes [id number] 325mg Take 1 tablet by mouth in the morning and 1 tablet in the evening. [facility] gabapentin 300 mg capsule 2022-04 00:00: 00 Yes [id number] 300mg Take 1 capsule by mouth in the morning and 1 capsule at noon and 1 capsule in the evening. [facility] ibuprofen 600 mg tablet 2022-04 00:00: 00 Yes [id number] 600mg Take 1 tablet by mouth every 6 (six) hours. [facility] vitamin w/FA tablet 2022-04 00:00: 00 Yes [id number] 1{tbl} Take 1 tablet by mouth in the morning. [facility] docusate 100 mg capsule 2022-04 00:00: 00 Yes [id number] 200mg Take 2 capsules by mouth once daily as needed for Constipati on. [facility] ferrous sulfate 325 mg (65 mg iron) tablet 2022-04 00:00: 00 Yes [id number] 325mg Take 1 tablet by mouth in the morning and 1 tablet in the evening. [facility] gabapentin 300 mg capsule 2022-04 00:00: 00 Yes [id number] 300mg Take 1 capsule by mouth in the morning and 1 capsule at noon and 1 capsule in the evening. [facility] ibuprofen 600 mg tablet 2022-04 00:00: 00 Yes [id number] 600mg Take 1 tablet by mouth every 6 (six) hours. [facility] vitamin w/FA tablet 2022-04 00:00: 00 Yes [id number] 1{tbl} Take 1 tablet by mouth in the morning. [facility] docusate 100 mg capsule 2022-04 00:00: 00 Yes [id number] 200mg Take 2 capsules by mouth once daily as needed for Constipati on. [facility] ferrous sulfate 325 mg (65 mg iron) tablet 2022-04 00:00: 00 Yes [id number] 325mg Take 1 tablet by mouth in the morning and 1 tablet in the evening. [facility] HYDROcodone -acetaminop hen 5-325 mg tablet 2022-04 00:00: 00 04-04 05:59 :00 No [id number] 1{tbl} Take 1 tablet by mouth every 6 (six) hours as needed for Pain (scale 4-6) (Alternate with Ibuprofen) for up to 7 days. Indication s: acute pain [facility] HYDROcodone -acetaminop hen 5-325 mg tablet 2022-04 00:00: 00 04-04 05:59 :00 No [id number] 1{tbl} Take 1 tablet by mouth every 6 (six) hours as needed for Pain (scale 4-6) (Alternate with Ibuprofen) for up to 7 days. Indication s: acute pain [facility] HYDROcodone -acetaminop hen 5-325 mg tablet 2022-04 00:00: 00 04-04 05:59 :00 No [id number] 1{tbl} Take 1 tablet by mouth every 6 (six) hours as needed for Pain (scale 4-6) (Alternate with Ibuprofen) for up to 7 days. Indication s: acute pain [facility] HYDROcodone -acetaminop hen 5-325 mg tablet 2022-04 00:00: 00 04-04 05:59 :00 No [id number] 1{tbl} Take 1 tablet by mouth every 6 (six) hours as needed for Pain (scale 4-6) (Alternate with Ibuprofen) for up to 7 days. Indication s: acute pain [facility] acetaminoph en (TYLENOL) tablet 650 mg 2022-04 00:00: 00 03-27 12:46 :00 No 650mg 650 mg, Oral, Q6H, 3 doses, First dose on 03/26/23 at 1800, Last dose on Tue03/27/23 at 0600, Routine [facility] gabapentin (NEURONTIN) capsule 300 mg 2022-04 20:00: 00 Yes 300mg 300 mg, Oral, TID, First dose on 03/26/23 at 1400, Until Discontinu ed, Routine [facility] gabapentin (NEURONTIN) capsule 300 mg 2022-04 20:00: 00 Yes 300mg 300 mg, Oral, TID, First dose on 03/26/23 at 1400, Until Discontinu ed, Routine [facility] lactated ringers IV infusion 1,000 mL 2022-04 19:15: 00 03-26 18:40 :22 No 1000mL at 125 mL/hr, 1,000 mL, IV Infusion, ONCE, 1 dose, On 03/26/23 at 1315, Routine [facility] diphenhydrA MINE (BENADRYL) injection 25 mg 2022-04 18:27: 47 Yes 25mg 25 mg, Slow IV Push, Q6HPRN, Starting on 03/26/23 at 1227, Until Discontinu ed, Routine, Itching [facility] diphenhydrA MINE (BENADRYL) tablet 25 mg 2022-04 18:27: 47 Yes 25mg 25 mg, Oral, Q6HPRN, Starting on 03/26/23 at 1227, Until Discontinu ed, Routine, Sleep, Itching [facility] diphenhydrA MINE (BENADRYL) injection 25 mg 2022-04 18:27: 47 Yes 25mg 25 mg, Slow IV Push, Q6HPRN, Starting on 03/26/23 at 1227, Until Discontinu ed, Routine, Itching [facility] diphenhydrA MINE (BENADRYL) tablet 25 mg 2022-04 18:27: 47 Yes 25mg 25 mg, Oral, Q6HPRN, Starting on 03/26/23 at 1227, Until Discontinu ed, Routine, Sleep, Itching [facility] ondansetron (ZOFRAN (PF)) injection 4 mg 2022-04 18:27: 46 Yes 4mg 4 mg, Slow IV Push, Q8HPRN, Starting on 03/26/23 at 1227, Until Discontinu ed, Routine, Nausea and Vomiting (N/V) [facility] bisacodyL (DULCOLAX) suppository 10 mg 2022-04 18:27: 46 Yes 10mg 10 mg, Rectal, QDAILYPRN, Starting on 03/26/23 at 1227, Until Discontinu ed, Routine, Constipati on [facility] simethicone (GAS RELIEF (SIMETHICON E)) chewable tablet 160 mg 2022-04 18:27: 46 Yes 160mg 160 mg, Oral, PC+HSPRN, Starting on 03/26/23 at 1227, Until Discontinu ed, Routine, Gas [facility] docusate (COLACE) capsule 200 mg 2022-04 18:27: 46 Yes 200mg 200 mg, Oral, QDAILYPRN, Starting on 03/26/23 at 1227, Until Discontinu ed, Routine, Constipati on [facility] magnesium hydroxide (MILK OF MAGNESIA) 400 mg/5 mL suspension 30 mL 2022-04 18:27: 46 Yes 30mL 30 mL, Oral, QDAILYPRN, Starting on 03/26/23 at 1227, Until Discontinu ed, Routine, Constipati on [facility] lactated ringers IV infusion 1,000 mL 2022-04 18:27: 46 Yes 1000mL at 125 mL/hr, 1,000 mL, IV Infusion, PRN, 1 dose, Starting on 03/26/23 at 1227, Until Discontinu ed, Routine [facility] ondansetron (ZOFRAN (PF)) injection 4 mg 2022-04 18:27: 46 Yes 4mg 4 mg, Slow IV Push, Q8HPRN, Starting on 03/26/23 at 1227, Until Discontinu ed, Routine, Nausea and Vomiting (N/V) [facility] bisacodyL (DULCOLAX) suppository 10 mg 2022-04 18:27: 46 Yes 10mg 10 mg, Rectal, QDAILYPRN, Starting on 03/26/23 at 1227, Until Discontinu ed, Routine, Constipati on [facility] simethicone (GAS RELIEF (SIMETHICON E)) chewable tablet 160 mg 2022-04 18:27: 46 Yes 160mg 160 mg, Oral, PC+HSPRN, Starting on 03/26/23 at 1227, Until Discontinu ed, Routine, Gas [facility] docusate (COLACE) capsule 200 mg 2022-04 18:27: 46 Yes 200mg 200 mg, Oral, QDAILYPRN, Starting on 03/26/23 at 1227, Until Discontinu ed, Routine, Constipati on [facility] magnesium hydroxide (MILK OF MAGNESIA) 400 mg/5 mL suspension 30 mL 2022-04 18:27: 46 Yes 30mL 30 mL, Oral, QDAILYPRN, Starting on 03/26/23 at 1227, Until Discontinu ed, Routine, Constipati on [facility] lactated ringers IV infusion 1,000 mL 2022-04 18:27: 46 Yes 1000mL at 125 mL/hr, 1,000 mL, IV Infusion, PRN, 1 dose, Starting on 03/26/23 at 1227, Until Discontinu ed, Routine [facility] ketorolac (TORADOL) injection 2022-04 18:14: 00 03-26 18:26 :12 No Slow IV Push, ONCE INTRA PROCEDURE, Starting on 03/26/23 at 1214, Until 03/26/23 at 1226, Routine, Intra-op [facility] sodium chloride 0.9 % irrigation solution 2022-04 17:55: 00 Yes PRN, Starting on 03/26/23 at 1155, Until Discontinu ed, Intra-op [facility] sodium chloride 0.9 % irrigation solution 2022-04 17:55: 00 Yes PRN, Starting on 03/26/23 at 1155, Until Discontinu ed, Intra-op [facility] acetaminoph en ADULT (OFIRMEV) injection 2022-04 17:49: 00 03-26 18:26 :12 No IV Infusion, Administer over 15 Minutes, ONCE INTRA PROCEDURE, Starting on 03/26/23 at 1149, Until Discontinu ed, Routine, Intra-op [facility] methylergon ovine (METHERGINE ) injection 2022-04 17:45: 00 03-26 18:26 :12 No Intramuscu lar, ONCE INTRA PROCEDURE, Starting on 03/26/23 at 1145, Until Discontinu ed, Routine, Intra-op [facility] morpHINE PF (DURAMORPH- PF) injection 2022-04 17:43: 00 03-26 18:26 :12 No Intratheca l, ONCE INTRA PROCEDURE, Starting on 03/26/23 at 1143, Until Discontinu ed, Routine, Intra-op [facility] ampicillin (POLYCILLIN -N) injection 2022-04 17:32: 00 03-26 18:26 :12 No IV Piggyback, ONCE INTRA PROCEDURE, Starting on 03/26/23 at 1132, Until Discontinu ed, WING, Intra-op [facility] clindamycin in 5 % dextrose (CLEOCIN) 900 mg/50 mL IV piggyback RTU 900 mg 2022-04 17:30: 00 03-26 17:25 :00 No 900mg 900 mg, IV Piggyback, ONCE, 1 dose, On 03/26/23 at 1130, Administer over 30 Minutes, 50 mL
Reas on for Anti-Infec tive: Surgical Prophylaxi s
Surgi yocasta Prophylaxi s: PUBLICIST
Duration of therapy: within 24 hours of surgery
Restricte d use approved by: PUBLICIST FACULTY
rail crew member approving Restricted medication : NATHANTRINIDAD MARREROIAN Neha [facility] clindamycin in 5 % dextrose (CLEOCIN) 900 mg/50 mL IV piggyback RTU 2022-04 17:19: 00 03-26 18:26 :12 No IV Piggyback, ONCE INTRA PROCEDURE, Starting on 03/26/23 at 1119, Until Discontinu ed, Administer over 30 Minutes, Intra-op [facility] PHENYLephri ne 1000 mcg/10 mL in 0.9% NaCl syringe 2022-04 17:12: 00 03-26 18:26 :12 No Slow IV Push, CONTINUOUS PRN, Starting on 03/26/23 at 1112, Until Discontinu ed, Routine, Intra-op [facility] lactated ringers IV infusion 2022-04 17:03: 00 03-26 18:26 :12 No IV Infusion, CONTINUOUS PRN, Starting on 03/26/23 at 1103, Until Discontinu ed, Routine, Intra-op [facility] lidocaine-e pinephrine (XYLOCAINE W/EPINEPHRI NE) 2 %-1:200,000 injection 2022-04 17:01: 00 03-26 18:26 :12 No Intravenou s, ONCE INTRA PROCEDURE, Starting on 03/26/23 at 1101, Until Discontinu ed, Routine, Intra-op [facility] gentamicin 340 mg in NaCl 0.9% (NS) [...] Uterine
Duration of Therapy: Other (see Comments) [facility] ampicillin (POLYCILLIN -N) 2,000 mg in [...] uterine
Duration of Therapy: Other (see Comments) [facility] acetaminoph en (TYLENOL) tablet 1,000 mg 2022-04 11:31: 42 03-26 18:35 :23 No 1000mg 1,000 mg, Oral, Q6HPRN, Starting on 03/26/23 at 0531, Until 03/26/23 at 1235, Routine, Temp > 38 C [facility] naloxone (NARCAN) injection 0.2 mg 2022-04 07:32: 30 03-26 18:35 :23 No .2mg 0.2 mg, Intramuscu lar, Q6HPRN, 4 doses, Starting on 03/26/23 at 0132, Until 03/26/23 at 1235, Routine, Itching [facility] FENTanyl PF (SUBLIMAZE (PF)) injection 2022-04 05:05: 00 03-26 18:26 :12 No Epidural, ONCE INTRA PROCEDURE, Starting on Tue03/25/23 at 2305, Until Discontinu ed, Routine, Intra-op [facility] bupivacaine (preserv free) (SENSORCAIN E MPF) 0.25 % (2.5 mg/mL) injection 2022-04 05:05: 00 03-26 18:26 :12 No Epidural, ONCE INTRA PROCEDURE, Starting on Tue03/25/23 at 2305, Until Discontinu ed, Routine, Intra-op [facility] lidocaine-e pinephrine (XYLOCAINE W/EPINEPHRI NE) 1.5 %-1:200,000 injection 2022-04 02:01: 00 03-26 18:26 :12 No Epidural, ONCE INTRA PROCEDURE, Starting on Tue03/25/23 at 2000, Until Discontinu ed, Routine, Intra-op [facility] PIB fentaNYL-ro pivacaine 2 mcg/mL-0.1 % (PF) in NS 200 mL epidural infusion RTU 2022-04 01:57: 00 03-26 18:26 :12 No Epidural, ONCE INTRA PROCEDURE, Starting on Tue03/25/23 at 1957, Until Discontinu ed, Routine, Intra-op [facility] fentaNYL-ro pivacaine 2 mcg/mL-0.1 % (PF) in NS 200 mL epidural infusion RTU 2022-04 01:57: 00 03-26 18:26 :12 No Epidural, CONTINUOUS PRN, Starting on Tue03/25/23 at 1957, Until Discontinu ed, Routine, Intra-op [facility] misoprostol (CYTOTEC) quarter-tab let 25 mcg 2022-04 06:15: 00 03-25 06:56 :00 No 25ug 25 mcg, Oral, ONCE, 1 dose, On Tue03/25/23 at 0015, Routine [facility] oxytocin (PITOCIN) 30 units in NS 500 mL IV infusion 2022-04 06:09: 07 03-26 17:43 :00 No 600mL/h 600 mL/hr, IV Infusion, PRN, PPH, Starting on Tue03/25/23 at 0009, For 1 dose
As instructed by physician at bedside.<b r> [facility] misoprostol (CYTOTEC) quarter-tab let 25 mcg 2022-04 06:09: 07 03-26 18:35 :23 No 25ug 25 mcg, Vaginal, Q4HPRN, Starting on Tue03/25/23 at 0009, Until 03/26/23 at 1235, Routine, cervical ripening [facility] FENTanyl PF (SUBLIMAZE (PF)) injection 100 mcg 2022-04 06:09: 07 03-26 18:35 :23 No 100ug 100 mcg, Slow IV Push, Q1HPRN, Starting on Tue03/25/23 at 0009, Until 03/26/23 at 1235, Routine, Pain (scale 4-6), Pain (scale 7-10) [facility] oxytocin (PITOCIN) 30 units in NS 500 mL IV infusion 2022-04 06:09: 07 03-26 18:35 :23 No 2mU/min at 2-40 mL/hr, IV Infusion, TITRATE, Starting on Tue03/25/23 at 0009, Until 03/26/23 at 1235, Routine [facility] [id number] IV infusion 1,000 mL 2022-04 06:09: 07 03-26 18:35 :23 No 1000mL at 1-125 mL/hr, IV Infusion, TITRATE, Starting on Tue03/25/23 at 0009, Until 03/26/23 at 1235, Routine [facility] valACYclovi r (VALTREX) 1 gram tablet 2022-04 00:00: 00 Yes [id number] 1g Take 1 tablet by mouth in the morning. [facility] valACYclovi r (VALTREX) 1 gram tablet 2022-04 00:00: 00 Yes [id number] 1g Take 1 tablet by mouth in the morning. [facility] valACYclovi r (VALTREX) 1 gram tablet 2022-04 00:00: 00 Yes [id number] 1g Take 1 tablet by mouth in the morning. [facility] valACYclovi r (VALTREX) 1 gram tablet 2022-04 00:00: 00 Yes [id number] 1g Take 1 tablet by mouth in the morning. [facility] valACYclovi r (VALTREX) 1 gram tablet 2022-04 00:00: 00 Yes [id number] 1g Take 1 tablet by mouth in the morning. [facility] valACYclovi r (VALTREX) 1 gram tablet 2022-04 00:00: 00 Yes [id number] 1g Take 1 tablet by mouth in the morning. [facility] valACYclovi r (VALTREX) 1 gram tablet 2022-04 00:00: 00 Yes [id number] 1g Take 1 tablet by mouth in the morning. [facility] valACYclovi r (VALTREX) 1 gram tablet 2022-04 00:00: 00 Yes [id number] 1g Take 1 tablet by mouth in the morning. [facility] valACYclovi r (VALTREX) 1 gram tablet 2022-04 00:00: 00 Yes [id number] 1g Take 1 tablet by mouth in the morning. [facility] valACYclovi r (VALTREX) 1 gram tablet 2022-04 00:00: 00 Yes [id number] 1g Take 1 tablet by mouth in the morning. [facility] valACYclovi r (VALTREX) 1 gram tablet 2022-04 00:00: 00 Yes [id number] 1g Take 1 tablet by mouth in the morning. [facility] valACYclovi r (VALTREX) 1 gram tablet 2022-04 00:00: 00 Yes [id number] 1g Take 1 tablet by mouth in the morning. [facility] valACYclovi r (VALTREX) 1 gram tablet 2022-04 00:00: 00 Yes [id number] 1g Take 1 tablet by mouth in the morning. [facility] valACYclovi r (VALTREX) 1 gram tablet 2022-04 00:00: 00 Yes [id number] 1g Take 1 tablet by mouth in the morning. [facility] valACYclovi r (VALTREX) 1 gram tablet 2022-04 00:00: 00 Yes [id number] 1g Take 1 tablet by mouth in the morning. [facility] valACYclovi r (VALTREX) 1 gram tablet 2022-04 00:00: 00 Yes [id number] 1g Take 1 tablet by mouth in the morning. [facility] ferrous sulfate 325 mg (65 mg iron) tablet 01-07 00:00: 00 Yes [id number] 325mg Take 1 tablet by mouth in the morning. [facility] ferrous sulfate 325 mg (65 mg iron) tablet 01-07 00:00: 00 Yes [id number] 325mg Take 1 tablet by mouth in the morning. [facility] ferrous sulfate 325 mg (65 mg iron) tablet 01-07 00:00: 00 Yes [id number] 325mg Take 1 tablet by mouth in the morning. [facility] ferrous sulfate 325 mg (65 mg iron) tablet 01-07 00:00: 00 Yes [id number] 325mg Take 1 tablet by mouth in the morning. [facility] ferrous sulfate 325 mg (65 mg iron) tablet 01-07 00:00: 00 Yes [id number] 325mg Take 1 tablet by mouth in the morning. [facility] ferrous sulfate 325 mg (65 mg iron) tablet 01-07 00:00: 00 Yes [id number] 325mg Take 1 tablet by mouth in the morning. [facility] ferrous sulfate 325 mg (65 mg iron) tablet 01-07 00:00: 00 Yes [id number] 325mg Take 1 tablet by mouth in the morning. [facility] ferrous sulfate 325 mg (65 mg iron) tablet 01-07 00:00: 00 Yes [id number] 325mg Take 1 tablet by mouth in the morning. [facility] ferrous sulfate 325 mg (65 mg iron) tablet 01-07 00:00: 00 Yes [id number] 325mg Take 1 tablet by mouth in the morning. [facility] ferrous sulfate 325 mg (65 mg iron) tablet 01-07 00:00: 00 Yes [id number] 325mg Take 1 tablet by mouth in the morning. [facility] ferrous sulfate 325 mg (65 mg iron) tablet 2022-0 929 00:00: 00 Yes [id number] 325mg Take 1 tablet by mouth in the morning. [facility] ferrous sulfate 325 mg (65 mg iron) tablet 2022-0 01-07 00:00: 00 03-27 00:00 :00 No [id number] 325mg Take 1 tablet by mouth in the morning. [facility] ferrous sulfate 325 mg (65 mg iron) tablet 2022-0 01-07 00:00: 00 03-27 00:00 :00 No [id number] 325mg Take 1 tablet by mouth in the morning. [facility] metroNIDAZO LE 500 mg tablet 2022-0 5-19 00:00: 00 Yes [id number] 500mg Take 1 tablet by mouth every 12 (twelve) hours. [facility] metroNIDAZO LE 500 mg tablet 2022-0 -19 00:00: 00 Yes [id number] 500mg Take 1 tablet by mouth every 12 (twelve) hours. [facility] cephALEXin 500 mg capsule 2022-0 5-19 00:00: 00 Yes [id number] 500mg Take 1 capsule by mouth in the morning and 1 capsule in the evening. [facility] metroNIDAZO LE 500 mg tablet 2022-0 -19 00:00: 00 Yes [id number] 500mg Take 1 tablet by mouth every 12 (twelve) hours. [facility] cephALEXin 500 mg capsule 2022-0 5-19 00:00: 00 Yes [id number] 500mg Take 1 capsule by mouth in the morning and 1 capsule in the evening. [facility] metroNIDAZO LE 500 mg tablet 3-0 5-19 00:00: 00 Yes [id number] 500mg Take 1 tablet by mouth every 12 (twelve) hours. [facility] cephALEXin 500 mg capsule 3-0 5-19 00:00: 00 Yes [id number] 500mg Take 1 capsule by mouth in the morning and 1 capsule in the evening. [facility] metroNIDAZO LE 500 mg tablet 2022-0 5-19 00:00: 00 Yes [id number] 500mg Take 1 tablet by mouth every 12 (twelve) hours. [facility] cephALEXin 500 mg capsule 2022-0 5-19 00:00: 00 Yes [id number] 500mg Take 1 capsule by mouth in the morning and 1 capsule in the evening. [facility] metroNIDAZO LE 500 mg tablet 2022-0 5-19 00:00: 00 Yes [id number] 500mg Take 1 tablet by mouth every 12 (twelve) hours. [facility] cephALEXin 500 mg capsule 2022-0 5-19 00:00: 00 Yes [id number] 500mg Take 1 capsule by mouth in the morning and 1 capsule in the evening. [facility] metroNIDAZO LE 500 mg tablet 2022-0 -19 00:00: 00 Yes [id number] 500mg Take 1 tablet by mouth every 12 (twelve) hours. [facility] cephALEXin 500 mg capsule 2022-0 -19 00:00: 00 Yes [id number] 500mg Take 1 capsule by mouth in the morning and 1 capsule in the evening. [facility] metroNIDAZO LE 500 mg tablet 2022-0 -19 00:00: 00 Yes [id number] 500mg Take 1 tablet by mouth every 12 (twelve) hours. [facility] cephALEXin 500 mg capsule 2022-0 -19 00:00: 00 Yes [id number] 500mg Take 1 capsule by mouth in the morning and 1 capsule in the evening. [facility] metroNIDAZO LE 500 mg tablet 2022-0 -19 00:00: 00 10-19 00:00 :00 No [id number] 500mg Take 1 tablet by mouth every 12 (twelve) hours. [facility] cephALEXin 500 mg capsule 2022-0 -19 00:00: 00 10-19 00:00 :00 No [id number] 500mg Take 1 capsule by mouth in the morning and 1 capsule in the evening. [facility] proMETHazin e 25 mg tablet 2022-0 -17 00:00: 00 Yes [id number] 25mg Take 1 tablet by mouth every 4 (four) hours as needed for Nausea and Vomiting (N/V). [facility] proMETHazin e 25 mg tablet 2023-0 5-17 00:00: 00 Yes [id number] 25mg Take 1 tablet by mouth every 4 (four) hours as needed for Nausea and Vomiting (N/V). [facility] proMETHazin e 25 mg tablet 2023-0 5-17 00:00: 00 Yes [id number] 25mg Take 1 tablet by mouth every 4 (four) hours as needed for Nausea and Vomiting (N/V). [facility] proMETHazin e 25 mg tablet 3-0 5-17 00:00: 00 Yes [id number] 25mg Take 1 tablet by mouth every 4 (four) hours as needed for Nausea and Vomiting (N/V). [facility] proMETHazin e 25 mg tablet 3-0 5-17 00:00: 00 Yes [id number] 25mg Take 1 tablet by mouth every 4 (four) hours as needed for Nausea and Vomiting (N/V). [facility] proMETHazin e 25 mg tablet 3-0 5-17 00:00: 00 Yes [id number] 25mg Take 1 tablet by mouth every 4 (four) hours as needed for Nausea and Vomiting (N/V). [facility] proMETHazin e 25 mg tablet 3-0 5-17 00:00: 00 Yes [id number] 25mg Take 1 tablet by mouth every 4 (four) hours as needed for Nausea and Vomiting (N/V). [facility] proMETHazin e 25 mg tablet 3-0 5-17 00:00: 00 Yes [id number] 25mg Take 1 tablet by mouth every 4 (four) hours as needed for Nausea and Vomiting (N/V). [facility] proMETHazin e 25 mg tablet 2023-0 5-17 00:00: 00 Yes [id number] 25mg Take 1 tablet by mouth every 4 (four) hours as needed for Nausea and Vomiting (N/V). [facility] proMETHazin e 25 mg tablet 2023-0 5-17 00:00: 00 Yes [id number] 25mg Take 1 tablet by mouth every 4 (four) hours as needed for Nausea and Vomiting (N/V). [facility] proMETHazin e 25 mg tablet 3-0 5-17 00:00: 00 Yes [id number] 25mg Take 1 tablet by mouth every 4 (four) hours as needed for Nausea and Vomiting (N/V). [facility] proMETHazin e 25 mg tablet 3-0 5-17 00:00: 00 Yes [id number] 25mg Take 1 tablet by mouth every 4 (four) hours as needed for Nausea and Vomiting (N/V). [facility] proMETHazin e 25 mg tablet 3-0 5-17 00:00: 00 Yes [id number] 25mg Take 1 tablet by mouth every 4 (four) hours as needed for Nausea and Vomiting (N/V). [facility] proMETHazin e 25 mg tablet 3-0 5-17 00:00: 00 Yes [id number] 25mg Take 1 tablet by mouth every 4 (four) hours as needed for Nausea and Vomiting (N/V). [facility] proMETHazin e 25 mg tablet 3-0 5-17 00:00: 00 Yes [id number] 25mg Take 1 tablet by mouth every 4 (four) hours as needed for Nausea and Vomiting (N/V). [facility] proMETHazin e 25 mg tablet 3-0 5-17 00:00: 00 Yes [id number] 25mg Take 1 tablet by mouth every 4 (four) hours as needed for Nausea and Vomiting (N/V). [facility] proMETHazin e 25 mg tablet 2023-0 5-17 00:00: 00 Yes [id number] 25mg Take 1 tablet by mouth every 4 (four) hours as needed for Nausea and Vomiting (N/V). [facility] proMETHazin e 25 mg tablet 3-0 5-17 00:00: 00 Yes [id number] 25mg Take 1 tablet by mouth every 4 (four) hours as needed for Nausea and Vomiting (N/V). [facility] proMETHazin e 25 mg tablet 2023-0 5-17 00:00: 00 Yes [id number] 25mg Take 1 tablet by mouth every 4 (four) hours as needed for Nausea and Vomiting (N/V). [facility] proMETHazin e 25 mg tablet 2023-0 5-17 00:00: 00 Yes [id number] 25mg Take 1 tablet by mouth every 4 (four) hours as needed for Nausea and Vomiting (N/V). [facility] proMETHazin e 25 mg tablet 2023-0 5-17 00:00: 00 Yes [id number] 25mg Take 1 tablet by mouth every 4 (four) hours as needed for Nausea and Vomiting (N/V). [facility] proMETHazin e 25 mg tablet 2023-0 5-17 00:00: 00 Yes [id number] 25mg Take 1 tablet by mouth every 4 (four) hours as needed for Nausea and Vomiting (N/V). [facility] proMETHazin e 25 mg tablet 2023-0 5-17 00:00: 00 Yes [id number] 25mg Take 1 tablet by mouth every 4 (four) hours as needed for Nausea and Vomiting (N/V). [facility] proMETHazin e 25 mg tablet 2023-0 5-17 00:00: 00 Yes [id number] 25mg Take 1 tablet by mouth every 4 (four) hours as needed for Nausea and Vomiting (N/V). [facility] proMETHazin e 25 mg tablet 2023-0 5-17 00:00: 00 Yes [id number] 25mg Take 1 tablet by mouth every 4 (four) hours as needed for Nausea and Vomiting (N/V). [facility] proMETHazin e 25 mg tablet 2023-0 5-17 00:00: 00 Yes [id number] 25mg Take 1 tablet by mouth every 4 (four) hours as needed for Nausea and Vomiting (N/V). [facility] proMETHazin e 25 mg tablet 2023-0 5-17 00:00: 00 Yes [id number] 25mg Take 1 tablet by mouth every 4 (four) hours as needed for Nausea and Vomiting (N/V). [facility] proMETHazin e 25 mg tablet 2023-0 5-17 00:00: 00 Yes [id number] 25mg Take 1 tablet by mouth every 4 (four) hours as needed for Nausea and Vomiting (N/V). [facility] proMETHazin e 25 mg tablet 17 00:00: 00 Yes [id number] 25mg Take 1 tablet by mouth every 4 (four) hours as needed for Nausea and Vomiting (N/V). [facility] proMETHazin e 25 mg tablet 17 00:00: 00 03-27 00:00 :00 No [id number] 25mg Take 1 tablet by mouth every 4 (four) hours as needed for Nausea and Vomiting (N/V). [facility] proMETHazin e 25 mg tablet 08-25 00:00: 00 03-27 00:00 :00 No [id number] 25mg Take 1 tablet by mouth every 4 (four) hours as needed for Nausea and Vomiting (N/V). [facility] valACYclovi r (VALTREX) 500 mg tablet 2020-04 2-16 00:00: 00 04-01 05:59 :00 No [id number] 500mg Take 1 tablet by mouth 2 (two) times daily for 5 days. [facility] metroNIDAZO LE 500 mg tablet 18 00:00: 00 05-06 05:59 :00 No [id number] 500mg Take 1 tablet by mouth 2 (two) times daily for 7 days. [facility] metroNIDAZO LE 500 mg tablet 18 00:00: 00 05-06 05:59 :00 No [id number] 500mg Take 1 tablet by mouth 2 (two) times daily for 7 days. [facility] metroNIDAZO LE 500 mg tablet -18 00:00: 00 05-06 05:59 :00 No [id number] 500mg Take 1 tablet by mouth 2 (two) times daily for 7 days. [facility] lidocaine 2 % mucosal jelly 1-14 00:00: 00 Yes [id number] Apply to area as needed [facility] lidocaine 2 % mucosal jelly 1-14 00:00: 00 Yes [id number] Apply to area as needed [facility] lidocaine 2 % mucosal jelly 2021-0 1-14 00:00: 00 Yes [id number] Apply to area as needed [facility] lidocaine 2 % mucosal jelly 2021-0 1-14 00:00: 00 Yes [id number] Apply to area as needed [facility] lidocaine 2 % mucosal jelly 2021-0 1-14 00:00: 00 Yes [id number] Apply to area as needed [facility] lidocaine 2 % mucosal jelly 2021-0 1-14 00:00: 00 Yes [id number] Apply to area as needed [facility] lidocaine 2 % mucosal jelly 2021-0 1-14 00:00: 00 Yes [id number] Apply to area as needed [facility] lidocaine 2 % mucosal jelly 2021-0 1-14 00:00: 00 Yes [id number] Apply to area as needed [facility] lidocaine 2 % mucosal jelly 2021-0 1-14 00:00: 00 Yes [id number] Apply to area as needed [facility] lidocaine 2 % mucosal jelly 2021-0 1-14 00:00: 00 Yes [id number] Apply to area as needed [facility] lidocaine 2 % mucosal jelly 2021-0 1-14 00:00: 00 Yes [id number] Apply to area as needed [facility] lidocaine 2 % mucosal jelly 2021-0 1-14 00:00: 00 Yes [id number] Apply to area as needed [facility] lidocaine 2 % mucosal jelly 2021-0 1-14 00:00: 00 Yes [id number] Apply to area as needed [facility] lidocaine 2 % mucosal jelly 2021-0 1-14 00:00: 00 Yes [id number] Apply to area as needed [facility] lidocaine 2 % mucosal jelly 2021-0 1-14 00:00: 00 Yes [id number] Apply to area as needed [facility] lidocaine 2 % mucosal jelly 2021-0 1-14 00:00: 00 Yes [id number] Apply to area as needed [facility] lidocaine 2 % mucosal jelly 2020-0 1-14 00:00: 00 Yes [id number] Apply to area as needed [facility] lidocaine 2 % mucosal jelly 2020-0 1-14 00:00: 00 Yes [id number] Apply to area as needed [facility] lidocaine 2 % mucosal jelly 2020-0 1-14 00:00: 00 Yes [id number] Apply to area as needed [facility] lidocaine 2 % mucosal jelly 2020-0 1-14 00:00: 00 Yes [id number] Apply to area as needed [facility] lidocaine 2 % mucosal jelly 2020-0 1-14 00:00: 00 Yes [id number] Apply to area as needed [facility] lidocaine 2 % mucosal jelly 2020-0 1-14 00:00: 00 Yes [id number] Apply to area as needed [facility] lidocaine 2 % mucosal jelly 2020-0 1-14 00:00: 00 Yes [id number] Apply to area as needed [facility] lidocaine 2 % mucosal jelly 2020-0 1-14 00:00: 00 Yes [id number] Apply to area as needed [facility] lidocaine 2 % mucosal jelly 2020-0 1-14 00:00: 00 11-19 00:00 :00 No [id number] [facility] as [facility] 14 00:00: 00 05-05 05:59 :00 No [id number] 1g Take 1 tablet by mouth 2 (two) times daily for 10 days. [facility] valACYclovi r 1 gram tablet 0 -14 00:00: 00 05-05 05:59 :00 No [id number] 1g Take 1 tablet by mouth 2 (two) times daily for 10 days. [facility] valACYclovi r 1 gram tablet -14 00:00: 00 05-05 05:59 :00 No [id number] 1g Take 1 tablet by mouth 2 (two) times daily for 10 days. [facility] Immunizations Ordered Immunization Name Filled Immunization Name Date Status Comments Source Influenza Virus Vaccine Quad IM, Preserv and ABX Free 6 MO-64 YRS (FLUCELVAX) Unknown Completed [facility] TDAP Unknown Completed [facility] Influenza Virus Vaccine Quad IM, Preserv and ABX Free 6 MO-64 YRS (FLUCELVAX) Unknown Completed [facility] TDAP Unknown Completed [facility] Influenza Virus Vaccine Quad IM, Preserv and ABX Free 6 MO-64 YRS (FLUCELVAX) Unknown Completed [facility] TDAP Unknown Completed [facility] Influenza Virus Vaccine Quad IM, Preserv and ABX Free 6 MO-64 YRS (FLUCELVAX) Unknown Completed [facility] TDAP Unknown Completed [facility] Influenza Virus Vaccine Quad IM, Preserv and ABX Free 6 MO-64 YRS (FLUCELVAX) Unknown Completed [facility] TDAP Unknown Completed [facility] Influenza Virus Vaccine Quad IM, Preserv and ABX Free 6 MO-64 YRS (FLUCELVAX) Unknown Completed [facility] TDAP Unknown Completed [facility] Influenza Virus Vaccine Quad IM, Preserv and ABX Free 6 MO-64 YRS (FLUCELVAX) Unknown Completed [facility] TDAP Unknown Completed [facility] Influenza Virus Vaccine Quad IM, Preserv and ABX Free 6 MO-64 YRS (FLUCELVAX) Unknown Completed [facility] TDAP Unknown Completed [facility] Influenza Virus Vaccine Quad IM, Preserv and ABX Free 6 MO-64 YRS (FLUCELVAX) Unknown Completed [facility] TDAP Unknown Completed [facility] Influenza Virus Vaccine Quad IM, Preserv and ABX Free 6 MO-64 YRS (FLUCELVAX) Unknown Completed [facility] TDAP Unknown Completed [facility] Influenza Virus Vaccine Quad IM, Preserv and ABX Free 6 MO-64 YRS (FLUCELVAX) Unknown Completed [facility] TDAP Unknown Completed [facility] Influenza Virus Vaccine Quad IM, Preserv and ABX Free 6 MO-64 YRS (FLUCELVAX) Unknown Completed [facility] TDAP Unknown Completed [facility] Influenza Virus Vaccine Quad IM, Preserv and ABX Free 6 MO-64 YRS (FLUCELVAX) Unknown Completed [facility] TDAP Unknown Completed [facility] Influenza Virus Vaccine Quad IM, Preserv and ABX Free 6 MO-64 YRS (FLUCELVAX) Unknown Completed [facility] TDAP Unknown Completed [facility] Influenza Virus Vaccine Quad IM, Preserv and ABX Free 6 MO-64 YRS (FLUCELVAX) Unknown Completed [facility] TDAP Unknown Completed [facility] Influenza Virus Vaccine Quad IM, Preserv and ABX Free 6 MO-64 YRS (FLUCELVAX) Unknown Completed [facility] TDAP Unknown Completed [facility] Influenza Virus Vaccine Quad IM, Preserv and ABX Free 6 MO-64 YRS (FLUCELVAX) Unknown Completed [facility] TDAP Unknown Completed [facility] Influenza Virus Vaccine Quad IM, Preserv and ABX Free 6 MO-64 YRS (FLUCELVAX) Unknown Completed [facility] TDAP Unknown Completed [facility] Influenza Virus Vaccine Quad IM, Preserv and ABX Free 6 MO-64 YRS (FLUCELVAX) Unknown Completed [facility] TDAP Unknown Completed [facility] Vital Signs Vital Name Observation Time Observation Value Comments S ource Systolic blood pressure 2023-05-06 22:19:00 119 mm[Hg] [facility] Diastolic blood pressure 2023-05-06 22:19:00 72 mm[Hg] [facility] Heart rate 2023-05-06 22:19:00 70 /min [facility] Body temperature 2023-05-06 22:19:00 36.33 [facility] Body height 2023-05-06 22:19:00 162.6 cm [facility] Body weight 2023-05-06 22:19:00 82.736 kg [facility] BMI 2023-05-06 22:19:00 31.31 kg/m2 [facility] Systolic blood pressure 2023-04-15 21:55:00 103 mm[Hg] [facility] Diastolic blood pressure 2023-04-15 21:55:00 54 mm[Hg] [facility] Heart rate 2023-04-15 21:55:00 83 /min [facility] Respiratory rate 2023-04-15 21:55:00 18 /min [facility] Body height 2023-04-15 21:55:00 162.6 cm [facility] Body weight 2023-04-15 21:55:00 81.194 kg [facility] BMI 2023-04-15 21:55:00 30.73 kg/m2 [facility] Systolic blood pressure 2023-03-28 15:45:00 123 mm[Hg] [facility] Diastolic blood pressure 2023-03-28 15:45:00 52 mm[Hg] [facility] Respiratory rate 2023-03-28 15:45:00 18 /min [facility] Heart rate 2023-03-28 10:42:00 88 /min [facility] Oxygen saturation in Arterial blood by Pulse oximetry 2023-03-28 10:42:00 96 /min [facility] Body temperature 2023-03-28 10:00:00 36.78 [facility] Body height 2023-03-25 07:03:00 162.6 cm [facility] Body weight 2023-03-25 07:03:00 87.998 kg [facility] BMI 2023-03-25 07:03:00 33.30 kg/m2 [facility] Systolic blood pressure 2023-03-26 19:00:00 119 mm[Hg] [facility] Diastolic blood pressure 2023-03-26 19:00:00 59 mm[Hg] [facility] Heart rate 2023-03-26 19:00:00 63 /min [facility] Body temperature 2023-03-26 19:00:00 36.83 [facility] Oxygen saturation in Arterial blood by Pulse oximetry 2023-03-26 19:00:00 96 /min [facility] Respiratory rate 2023-03-26 14:00:00 18 /min [facility] Body height 2023-03-25 07:03:00 162.6 cm [facility] Body weight 2023-03-25 07:03:00 87.998 kg [facility] BMI 2023-03-25 07:03:00 33.30 kg/m2 [facility] Systolic blood pressure 2023-03-23 19:24:00 117 mm[Hg] [facility] Diastolic blood pressure 2023-03-23 19:24:00 84 mm[Hg] [facility] Heart rate 2023-03-23 19:24:00 86 /min [facility] Body temperature 2023-03-23 19:24:00 36.67 [facility] Respiratory rate 2023-03-23 19:24:00 18 /min [facility] Body height 2023-03-23 19:24:00 162.6 cm [facility] Body weight 2023-03-23 19:24:00 87.499 kg [facility] BMI 2023-03-23 19:24:00 33.11 kg/m2 [facility] Systolic blood pressure 2023-03-17 20:14:00 107 mm[Hg] [facility] Diastolic blood pressure 2023-03-17 20:14:00 66 mm[Hg] [facility] Heart rate 2023-03-17 20:14:00 75 /min [facility] Body temperature 2023-03-17 20:14:00 36.83 [place] [facility] Respiratory rate 2023-03-17 20:14:00 18 /min [facility] Body height 2023-03-17 20:14:00 162.6 cm [facility] Body weight 2023-03-17 20:14:00 86.909 kg [facility] BMI 2023-03-17 20:14:00 32.89 kg/m2 [facility] Systolic blood pressure 2023-03-08 20:33:00 117 mm[Hg] [facility] Diastolic blood pressure 2023-03-08 20:33:00 69 mm[Hg] [facility] Heart rate 2023-03-08 20:33:00 90 /min [facility] Body temperature 2023-03-08 20:33:00 36.89 [place] [facility] Respiratory rate 2023-03-08 20:33:00 18 /min [facility] Body height 2023-03-08 20:33:00 162.6 cm [facility] Body weight 2023-03-08 20:33:00 87.272 kg [facility] BMI 2023-03-08 20:33:00 33.03 kg/m2 [facility] Systolic blood pressure 2023-02-18 19:29:00 116 mm[Hg] [facility] Diastolic blood pressure 2023-02-18 19:29:00 64 mm[Hg] [facility] Heart rate 2023-02-18 19:29:00 73 /min [facility] Body temperature 2023-02-18 19:29:00 36.33 [place] [facility] Body height 2023-02-18 19:29:00 157.5 cm [facility] Body weight 2023-02-18 19:29:00 86.456 kg [facility] BMI 2023-02-18 19:29:00 34.86 kg/m2 [facility] Systolic blood pressure 2023-02-04 18:10:00 107 mm[Hg] [facility] Diastolic blood pressure 2023-02-04 18:10:00 64 mm[Hg] [facility] Heart rate 2023-02-04 18:10:00 86 /min [facility] Body temperature 2023-02-04 18:10:00 36.78 Olive [facility] Respiratory rate 2023-02-04 18:10:00 17 /min [facility] Body height 2023-02-04 18:10:00 157.5 cm [facility] Body weight 2023-02-04 18:10:00 84.823 kg [facility] BMI 2023-02-04 18:10:00 34.20 kg/m2 [facility] Systolic blood pressure 2023-01-21 18:38:00 112 mm[Hg] [facility] Diastolic blood pressure 2023-01-21 18:38:00 63 mm[Hg] [facility] Heart rate 2023-01-21 18:38:00 90 /min [facility] Body temperature 2023-01-21 18:38:00 36.67 [place] [facility] Respiratory rate 2023-01-21 18:38:00 18 /min [facility] Body height 2023-01-21 18:38:00 157.5 cm [facility] Body weight 2023-01-21 18:38:00 84.369 kg [facility] BMI 2023-01-21 18:38:00 34.02 kg/m2 [facility] Systolic blood pressure 2023-01-07 19:55:00 114 mm[Hg] [facility] Diastolic blood pressure 2023-01-07 19:55:00 59 mm[Hg] [facility] Heart rate 2023-01-07 19:55:00 85 /min [facility] Body temperature 2023-01-07 19:55:00 36.17 [place] [facility] Respiratory rate 2023-01-07 19:55:00 18 /min [facility] Body height 2023-01-07 19:55:00 157.5 cm [facility] Body weight 2023-01-07 19:55:00 83.099 kg [facility] BMI 2023-01-07 19:55:00 33.51 kg/m2 [facility] Oxygen saturation in Arterial blood by Pulse oximetry 2023-01-07 19:55:00 98 /min [facility] Systolic blood pressure 2022-12-17 16:33:00 110 mm[Hg] [facility] Diastolic blood pressure 2022-12-17 16:33:00 70 mm[Hg] [facility] Heart rate 2022-12-17 16:33:00 79 /min [facility] Body temperature 2022-12-17 16:33:00 36.72 Olive [facility] Body height 2022-12-17 16:33:00 157.5 cm [facility] Body weight 2022-12-17 16:33:00 80.468 kg [facility] BMI 2022-12-17 16:33:00 32.45 kg/m2 [facility] Systolic blood pressure 2022-11-19 16:03:00 99 mm[Hg] [facility] Diastolic blood pressure 2022-11-19 16:03:00 59 mm[Hg] [facility] Heart rate 2022-11-19 16:03:00 83 /min [facility] Body temperature 2022-11-19 16:03:00 36.72 [place] [facility] Respiratory rate 2022-11-19 16:03:00 18 /min [facility] Body height 2022-11-19 16:03:00 157.5 cm [facility] Body weight 2022-11-19 16:03:00 78.472 kg [facility] BMI 2022-11-19 16:03:00 31.64 kg/m2 [facility] Systolic blood pressure 2022-10-19 13:54:00 116 mm[Hg] [facility] Diastolic blood pressure 2022-10-19 13:54:00 65 mm[Hg] [facility] Heart rate 2022-10-19 13:54:00 75 /min [facility] Body temperature 2022-10-19 13:54:00 36.94 Olive [facility] Respiratory rate 2022-10-19 13:54:00 18 /min [facility] Body height 2022-10-19 13:54:00 157.5 cm [facility] Body weight 2022-10-19 13:54:00 78.019 kg [facility] BMI 2022-10-19 13:54:00 31.46 kg/m2 [facility] Systolic blood pressure 2022-09-21 20:48:00 108 mm[Hg] [facility] Diastolic blood pressure 2022-09-21 20:48:00 56 mm[Hg] [facility] Heart rate 2022-09-21 20:48:00 89 /min [facility] Body temperature 2022-09-21 20:48:00 36.78 [place] [facility] Respiratory rate 2022-09-21 20:48:00 18 /min [facility] Body height 2022-09-21 20:48:00 157.5 cm [facility] Body weight 2022-09-21 20:48:00 74.571 kg [facility] BMI 2022-09-21 20:48:00 30.07 kg/m2 [facility] Oxygen saturation in Arterial blood by Pulse oximetry 2022-09-21 20:48:00 99 /min [facility] Systolic blood pressure 2022-08-25 20:04:00 115 mm[Hg] [facility] Diastolic blood pressure 2022-08-25 20:04:00 70 mm[Hg] [facility] Heart rate 2022-08-25 20:04:00 86 /min [facility] Body temperature 2022-08-25 20:04:00 36.56 Olive [facility] Respiratory rate 2022-08-25 20:04:00 16 /min [facility] Body height 2022-08-25 20:04:00 157.5 cm [facility] Body weight 2022-08-25 20:04:00 75.297 kg [facility] BMI 2022-08-25 20:04:00 30.36 kg/m2 [facility] Systolic blood pressure 2020-04-24 20:07:00 106 mm[Hg] [facility] Diastolic blood pressure 2020-04-24 20:07:00 56 mm[Hg] [facility] Heart rate 2020-04-24 20:07:00 72 /min [facility] Body temperature 2020-04-24 20:07:00 36.44 [place] [facility] Respiratory rate 2020-04-24 20:07:00 18 /min [facility] Body height 2020-04-24 20:07:00 157.5 cm [facility] Body weight 2020-04-24 20:07:00 67.087 kg [facility] BMI 2020-04-24 20:07:00 27.05 kg/m2 [facility] Oxygen saturation in Arterial blood by Pulse oximetry 2020-04-24 20:07:00 99 /min [facility] Procedures Procedure Date / Time Performed Performing Clinician Source CONSENT FOR CONTRACEPTION 2023-05-06 06:01:00 Doctor Unassigned, Anon Raices [facility] POCT TEST 2023-05-06 00:00:00 Adum, Spring Solomon [facility] CBC WITH DIFF 2023-03-27 10:00:00 Adum, Spring Roberson [facility] CBC WITH DIFF 2023-03-27 10:00:00 Adum, Spring Roberson [facility] SECTION 2023-03-26 16:53:00 Adum, Spring [facility] 2023-03-26 16:53:00 Adum, Spring [facility] CENTRAL NEURAXIAL BLOCK 2023-03-26 07:10:00 Jim Neely [facility] CENTRAL NEURAXIAL BLOCK 2023-03-26 01:41:00 Jim Neely [facility] CBC WITH DIFF 2023-03-25 06:50:00 [facility]TIGEN 2023-03-25 06:50:00 Adum, Spring Solomon [facility] HB ABO GROUPING 2023-03-25 06:50:00 Adum, Spring Solomon [facility] ADC OR RUDY ONLY - RPR 2023-03-25 06:50:00 Adum, Spring Solomon [facility] HIV 1/2 AG-AB WITH REFLEX 2023-03-25 06:50:00 Adum, Spring Solomon [facility] CBC WITH DIFF 2023-03-25 06:50:00 Adum, Spring Roberson [facility] HEPATITIS B SURFACE ANTIGEN 2023-03-25 06:50:00 Adum, Spring Solomon [facility] HB ABO GROUPING 2023-03-25 06:50:00 Adum, Spring L [facility] ADC OR RUDY ONLY - RPR 2023-03-25 06:50:00 Adum, Spring Solomon [facility] HIV 1/2 AG-AB WITH REFLEX 2023-03-25 06:50:00 Adum, Spring Solomon [facility] HOSPITAL ADMISSION 2023-03-25 06:01:00 Doctor Un assigned, Anon Raices [facility] POCT URINALYSIS W/O SPECIFIC GRAVITY 2023-03-23 00:00:00 Adum, Spring Solomon [facility] CONSENT/REFUSAL FOR DIAGNOSIS AND TREATMENT 2023-03-17 22:22:08 Doctor Unassigned, Anon Raices [facility] CONSENT/REFUSAL FOR DIAGNOSIS AND TREATMENT 2023-03-17 22:22:08 Doctor Unassigned, Anon Raices [facility] ASSIGNMENT OF BENEFITS 2023-03-17 22:10:56 Docto r Unassigned, Anon Raices [facility] ASSIGNMENT OF BENEFITS 2023-03-17 22:10:56 Docto r Unassigned, Anon Raices [facility] POCT URINALYSIS W/O SPECIFIC GRAVITY 2023-03-17 00:00:00 Adum, Spring Solomon [facility] DSU PRE-OP 2023-03-11 06:01:00 Doctor Unass igned, Anon Raices [facility] >14 WEEKS US LIMITED 2023-03-09 05:26:33 Adum, Spring Solomon [facility] POCT URINALYSIS W/O SPECIFIC GRAVITY 2023-03-08 20:39:00 Adum, Spring Solomon [facility] POCT URINALYSIS W/O SPECIFIC GRAVITY 2023-02-18 00:00:00 Adum, Spring Solomon [facility] POCT URINALYSIS W/O SPECIFIC GRAVITY 2023-02-04 00:00:00 Adum, Spring Solomon [facility] POCT URINALYSIS W/O SPECIFIC GRAVITY 2023-01-21 00:00:00 Adum, Spring Solomon [facility] TDAP VACCINE, >11 YRS, IM 2023-01-07 20:33:46 Adum, Spring Solomon [facility] FLU VACC ([id number]), 6 MO-64 YRS, .5ML, IM, QUAD (FLUCELVAX) 2023-01-07 20:23:28 Adum, Spring Solomon [facility] POCT URINALYSIS W/O SPECIFIC GRAVITY 2023-01-07 00:00:00 Adum, Spring Solomon [facility] POCT URINALYSIS W/O SPECIFIC GRAVITY 2022-12-17 00:00:00 Adum, Spring Solomon [facility] POCT URINALYSIS W/O SPECIFIC GRAVITY 2022-11-19 00:00:00 Adum, Spring Solomon [facility] SECOND AND THIRD TRIMESTER ULTRASOUND 2022-11-12 19:22:00 Adum, Spring Solomon [facility] POCT URINALYSIS W/O SPECIFIC GRAVITY 2022-10-19 00:00:00 Adum, Spring Solomon [facility] SCANNED LAB RESULTS 2022-09-28 05:01:00 Doctor Anali singh, Anon Raices [facility] POCT URINALYSIS W/O SPECIFIC GRAVITY 2022-09-21 00:00:00 Adum, Spring Solomon [facility] US OB TRANSVAGINAL 2022-08-25 20:40:38 Adum, Spring Solomon [facility] ASSIGNMENT OF BENEFITS 2022-08-25 19:49:50 Docto r Unassigned, Anon Raices [facility] POCT TEST 2022-08-25 00:00:00 Adum, Spring Solomon [facility] POCT URINALYSIS W/O SPECIFIC GRAVITY 2022-08-25 00:00:00 Adum, Spring Solomon [facility] GC & CHLAMYDIA AMPLIFIED ASSAY 2020-04-24 22:32:00 Dickson Antoine [facility] URINE CULTURE 2020-04-24 21:29:00 [facility]on [facility] GAL[facility] ONLY - VAGINAL PATHOGENS BY NUCLEIC ACID TESTING 2020-04-24 21:29:00 Dickson Antoine [facility] HSV 1&2, VZV BY PCR 2020-04-24 21:29:00 Dickson Antoine [facility] Encounters Start Date/Time End Date/Time Encounter Type Admission Type Attending Clinicians Care Facility Care Department Encounter ID Source 2023-07-09 00:00:00 2023-07-09 00:00:00 Nurse Triage Florentin Domonique [facility] 1.2.840.114 350.1.13.10 4.2.7.2.686 [id number] [facility] 2023-05-06 16:00:00 2023-05-06 17:05:53 Outpatient R ADUM, [facility] [id number] [facility] 2023-05-06 16:00:00 2023-05-06 17:05:53 [facility] 1.2.840.114 350.1.13.10 4.2.7.2.686 [id number] [facility] 2023-05-06 00:00:00 2023-05-06 00:00:00 Orders Only Doctor Unassigned, Anon Raices [facility] 1.2.840.114 350.1.13.10 4.2.7.2.686 [id number] [facility] 2023-04-15 15:45:00 2023-04-15 16:23:18 Outpatient R ADUM, [facility] [id number] [facility] 2023-04-15 15:45:00 2023-04-15 16:23:18 Routine Visit Adum, Spring [facility] 1..840.114 350.1.13.10 4.2.7.2.686 [id number] 134 [id number] [facility] 2023-03-25 00:05:00 2023-03-28 12:30:00 Inpatient P ADUM, [facility] [id number] [facility] 2023-03-25 00:05:00 2023-03-28 12:30:00 Hospital Encounter Adum, Spring [facility] 1.2.840.114 350.1.13.10 4.2.7.2.686 [id number] [facility] 2023-03-28 00:00:00 2023-03-28 00:00:00 Encounter [facility] 1.2.840.114 350.1.13.10 4.2.7.2.686 [id number] [facility] 2023-03-26 11:05:00 2023-03-26 13:03:00 Surgery NathanmaldonadoTrinidadSpring Neha [facility] 1.2.840.114 350.1.13.10 4.2.7.2.686 [id number] [facility] 2023-03-25 19:41:00 2023-03-26 12:26:00 Anesthesia Event Jim Neely Richesh [facility] 1.2.840.114 350.1.13.10 4.2.7.2.686 [id number] [facility] 2023-03-25 16:09:56 2023-03-25 16:09:56 Anesthesia Event Tito Malone Jeffrey S [facility] 1.2.840.114 350.1.13.10 4.2.7.2.686 [id number] [facility] 2023-03-25 00:00:00 2023-03-25 00:00:00 Orders Only Doctor Unassigned, Anon Raices [facility] 1.2.840.114 350.1.13.10 4.2.7.2.686 [id number] [facility] 2023-03-23 13:30:00 2023-03-23 13:48:10 Outpatient R [facility] [id number] [facility] 2023-03-23 13:30:00 2023-03-23 13:48:10 Routine Visit Adum, Spring Solomon [facility] 1.2.840.114 350.1.13.10 4.2.7.2.686 [id number] [facility] 2023-03-17 14:15:00 2023-03-17 14:30:00 Routine Visit Adum, Spring Solomon [facility] 1.2.840.114 350.1.13.10 4.2.7.2.686 [id number] [facility] 2023-03-17 14:15:00 2023-03-17 14:15:00 Outpatient R ADUM, SPRING [facility] [id number] [facility] 2023-03-11 00:00:00 2023-03-11 00:00:00 Orders Only Doctor Unassigned, Anon Raices [facility] 1.2.840.114 350.1.13.10 4.2.7.2.686 [id number] [facility] 2023-03-08 16:00:00 2023-03-08 16:11:10 Assembler Handbags Visit 2, Adc Lab Adum, Spring Solomon [facility] 1.2840.114 350.1.13.10 4.2.7.2.686 [id number] [facility] 2023-03-08 13:45:00 2023-03-08 15:49:03 Outpatient R ADUM, [facility] [id number] [facility] 2023-03-08 13:45:00 2023-03-08 15:49:03 Routine Visit Adum, Spring Solomon [facility] 1.2.840.114 350.1.13.10 4.2.7.2.686 [id number] [facility] 2023-02-18 13:15:00 2023-02-18 14:02:48 Outpatient R ADUM, SPRING [facility] [id number] [facility] 2023-02-18 13:15:00 2023-02-18 14:02:48 Routine Visit Adum, [facility] 1.2.840.114 350.1.13.10 4.2.7.2.686 [id number] 134 [id number] [facility] 2023-02-04 13:15:00 2023-02-04 13:25:49 Outpatient R ADUM, SPRING [facility] [id number] [facility] 2023-02-04 13:15:00 2023-02-04 13:25:49 Routine Visit Adum, Spring [facility] 1.2.840.114 350.1.13.10 4.2.7.2.686 [id number] 134 [id number] [facility] 2023-01-21 13:30:00 2023-01-21 13:45:00 Routine Visit Adum, Spring Solomon [facility] 1.2.840.114 350.1.13.10 4.2.7.2.686 [id number] 134 [id number] [facility] 2023-01-21 13:30:00 2023-01-21 13:30:00 Outpatient R ADUM, SPRING [facility] [id number] [facility] 2023-01-07 15:15:00 2023-01-07 15:33:02 Outpatient R ADUM, SPRING [facility] [id number] [facility] 2023-01-07 15:15:00 2023-01-07 15:33:02 Routine Visit Adum, Spring [facility] 1.2.840.114 350.1.13.10 4.2.7.2.686 [id number] 134 [id number] [facility] 2023-01-07 13:30:00 2023-01-07 13:45:00 Assembler Handbags Visit 2, Adc Lab Adum, Spring Solomon [facility] 1.2.840.114 350.1.13.10 4.2.7.2.686 [id number] [facility] 2022-12-17 11:15:00 2022-12-17 11:50:41 Outpatient R ADUM, [facility] [id number] [facility] 2022-12-17 11:15:00 2022-12-17 11:50:41 Routine Visit Adum, [facility] 1.2.840.114 350.1.13.10 4.2.7.2.686 [id number] 134 [id number] [facility] 2022-11-19 10:45:00 2022-11-19 12:02:21 Outpatient R ADUM, [facility] [id number] [facility] 2022-11-19 10:45:00 2022-11-19 12:02:21 Routine Visit Adum, [facility] 1.2.840.114 350.1.13.10 4.2.7.2.686 [id number] [facility] 2022-11-14 00:00:00 2022-11-14 00:00:00 Case Management Emma Hu [facility] 1..840.114 350.1.13.10 4.2.7.2.686 [id number] 134 [id number] [facility] 2022-11-12 13:30:00 2022-11-12 14:09:49 Outpatient EZRA CLEMENS COREY [facility] [id number] [facility] 2022-11-12 13:30:2022-11-12 14:09:49 Assembler Handbags Visit Ultrasound, Ezra Garcia [facility] PUBLICIST [facility] 1.2.840.114 350.1.13.10 4.2.7.2.686 [id number] [facility] 2022-10-19 09:45:00 2022-10-19 10:00:00 Assembler Handbags Visit 2, Adc Lab Adum, Spring Solomon [facility] 1.2.840.114 350.1.13.10 4.2.7.2.686 [id number] [facility] 2022-10-19 09:45:00 2022-10-19 09:45:00 Outpatient R ADUM, SPRING [facility] [id number] [facility] 2022-10-19 08:45:00 2022-10-19 09:24:49 Routine Visit Adum, Spring Solomon [facility] 1.2.840.114 350.1.13.10 4.2.7.2.686 [id number] 134 [id number] [facility] 2022-10-18 00:00:00 2022-10-18 00:00:00 Telephone Adum, Spring Solomon [facility] 1.2.840.114 350.1.13.10 4.2.7.2.686 [id number] 134 [id number] [facility] 2022-10-06 00:00:00 2022-10-06 00:00:00 Telephone Adum, Spring Solomon [facility] 1.2.840.114 350.1.13.10 4.2.7.2.686 [id number] 134 [id number] [facility] 2022-10-04 00:00:00 2022-10-04 00:00:00 Telephone Adum, Spring Solomon [facility] 1.2.840.114 350.1.13.10 4.2.7.2.686 [id number] 134 [id number] [facility] 2022-09-28 10:00:00 2022-09-28 10:15:00 Assembler Handbags Visit 2, Adc Lab Adum, Spring Solomon [facility] 1.2.840.114 350.1.13.10 4.2.7.2.686 [id number] [facility] 2022-09-28 10:00:00 2022-09-28 10:00:00 Outpatient R ADUM, SPR[facility] [id number] [facility] 2022-09-28 00:00:00 2022-09-28 00:00:00 Orders Only Doctor Unassigned, Anon Raices [facility] 1.840.114 350.1.13.10 4.2.7.2.686 [id number] [facility] 2022-09-21 15:30:00 2022-09-21 16:35:38 Routine Visit Adum, Spring Solomon [facility] 1.2.840.114 350.1.13.10 4.2.7.2.686 [id number] 134 [id number] [facility] 2022-09-21 15:30:00 2022-09-21 16:35:38 Outpatient R ADUM, SPR[place] [facility] [id number] [facility] 2022-08-27 00:00:00 2022-08-27 00:00:00 Case Management Adum, Spring Solomon [facility] 1.2.840.114 350.1.13.10 4.2.7.2.686 [id number] 134 [id number] [facility] 2022-08-27 00:00:00 2022-08-27 00:00:00 Case Management Adum, Spring Solomon [facility] 1.2840.114 350.1.13.10 4.2.7.2.686 [id number] 134 [id number] [facility] 2022-08-26 10:30:00 2022-08-26 11:35:21 Assembler Handbags Visit Lab, Kade Newman [facility] 1..114 350.1.13.10 4.2.7.2.686 [id number] [facility] 2022-08-26 10:30:00 2022-08-26 10:30:00 Outpatient R PATY [facility] [id number] [facility] 2022-08-25 14:30:00 2022-08-25 15:43:19 Outpatient R PATY [facility] [id number] [facility] 2022-08-25 14:30:00 2022-08-25 15:43:19 [facility] 1..114 350.1.13.10 4.2.7.2.686 [id number] [facility] 2022-08-25 00:00:00 2022-08-25 00:00:00 Orders Only Doctor Unassigned, Anon Raices [facility] 1.840.114 350.1.13.10 4.2.7.2.686 [id number] [facility] 2021-03-26 00:00:00 2021-03-26 00:00:00 Telephone Dickson Antoine [facility] PUBLICIST [facility] 1..114 350.1.13.10 4.2.7.2.686 [id number] [facility] 2021-03-25 00:00:00 2021-03-25 00:00:00 Telephone Dickson Antoine [facility] PUBLICIST [facility] 1.2.840.114 350.1.13.10 4.2.7.2.686 [id number] [facility] 2020-08-15 00:00:00 2020-08-15 00:00:00 Refill Dickson Antoine [facility] PUBLICIST [facility] 1.2.840.114 350.1.13.10 4.2.7.2.686 [id number] [facility] 2020-05-02 12:45:00 2020-05-02 12:45:00 Outpatient R LISBETH SANTAAN [facility] [id number] [facility] 2020-05-02 00:00:00 2020-05-02 00:00:00 Telephone Lisbeth Santana [facility] PUBLICIST [facility] [place] [facility] [id number] 350.1.13.10 4.2.7.2.686 [id number] [facility] 2020-05-02 00:00:00 2020-05-02 00:00:00 Letter (Out) Lisbeth Santana [facility] [id number] 350.1.13.10 [id number] [id number] [facility] 2020-04-28 00:00:00 2020-04-28 00:00:00 Telephone Deon Morales [facility] [id number] 350.1.13.10 4.2.7.2.686 [id number] [facility] 2020-04-24 13:34:56 2020-04-24 15:28:24 Office Visit Dickson Antoine [facility] PUBLICIST [facility] [id number] 350.1.13.10 4.2.7.2.686 [id number] [facility] 2020-04-24 14:15:00 2020-04-24 14:15:00 Outpatient Pedro DUQUEMUMTAZCruzDICKSON [facility] [id number] [facility] Results Test Description Test Time Test Comments Results Result Co mments Source [facility] Xzomhjlimeor6077-48-13 12:03:09* Test Item Value Reference Range Interpretation [...] 31.7 g/dL 31.6-35.1 RDW-SD (test code = 95730-5) 43.0 fL 39.0-49.9 RDW-CV (test code = 788-0) 13.9 % 12.0-15.5 PLT (test code = 777-3) 245 See_Comment [Automated message] The system which generated this result transmitted reference range: 166 - 358 10*3/?L. The reference range was not used to interpret this result as normal/abnormal. MPV (test code = 55819-9) 11.5 fL 9.5-12.9 NRBC/100 WBC (test code = 2856890408) 0.0 See_Comment [Automated message] The system which generated this result transmitted reference range: 0.0 - 10.0 /100 WBCs. The reference range was not used to interpret this result as normal/abnormal. NRBC x10^3 (test code = 6338847056) See_Comment [Automated message] The system which generated this result transmitted reference range: 10*3/?L. The reference range was not used to interpret this result as normal/abnormal. GRAN MAT (NEUT) % (test code = 770-8) 80.9 % IMM GRAN % (test code = 5394402700) 0.40 % LYMPH % (test code = 736-9) 13.0 % MONO % (test code = 5905-5) 5.0 % EOS % (test code = 713-8) 0.5 % BASO % (test code = 706-2) 0.2 % GRAN MAT x10^3(ANC) (test code = 7946769813) 10.47 10*3/uL 1.88-7.09 H IMM GRAN x10^3 (test code = 2384109061) 0.05 10*3/uL 0.00-0.06 LYMPH x10^3 (test code = 731-0) 1.69 10*3/uL 1.32-3.29 MONO x10^3 (test code = 742-7) 0.65 10*3/uL 0.33-0.92 EOS x10^3 (test code = 711-2) 0.07 10*3/uL 0.03-0.39 BASO x10^3 (test code = 704-7) 0.03 10*3/uL 0.01-0.07 Lab Interpretation (test code = 32066-3) Abnormal [facility] with Twrqewznrmvo4528-60-67 12:03:09* Test Item Value Reference Range Interpretation [...] 31.7 g/dL 31.6-35.1 RDW-SD (test code = 92386-2) 43.0 fL 39.0-49.9 RDW-CV (test code = 788-0) 13.9 % 12.0-15.5 PLT (test code = 777-3) 245 See_Comment [Automated message] The system which generated this result transmitted reference range: 166 - 358 10*3/?L. The reference range was not used to interpret this result as normal/abnormal. MPV (test code = 28713-8) 11.5 fL 9.5-12.9 NRBC/100 WBC (test code = 1573013250) 0.0 See_Comment [Automated message] The system which generated this result transmitted reference range: 0.0 - 10.0 /100 WBCs. The reference range was not used to interpret this result as normal/abnormal. NRBC x10^3 (test code = 6098801979) See_Comment [Automated message] The system which generated this result transmitted reference range: 10*3/?L. The reference range was not used to interpret this result as normal/abnormal. GRAN MAT (NEUT) % (test code = 770-8) 80.9 % IMM GRAN % (test code = 3583465621) 0.40 % LYMPH % (test code = 736-9) 13.0 % MONO % (test code = 5905-5) 5.0 % EOS % (test code = 713-8) 0.5 % BASO % (test code = 706-2) 0.2 % GRAN MAT x10^3(ANC) (test code = 0759755275) 10.47 10*3/uL 1.88-7.09 H IMM GRAN x10^3 (test code = 2080096036) 0.05 10*3/uL 0.00-0.06 LYMPH x10^3 (test code = 731-0) 1.69 10*3/uL 1.32-3.29 MONO x10^3 (test code = 742-7) 0.65 10*3/uL 0.33-0.92 EOS x10^3 (test code = 711-2) 0.07 10*3/uL 0.03-0.39 BASO x10^3 (test code = 704-7) 0.03 10*3/uL 0.01-0.07 Lab Interpretation (test code = 35499-4) Abnormal [facility] OR RUDY ONLY - WOR1166-65-95 05:24:04* Test Item Value Reference Range Interpretation Comme nts RPR (Qualitative) (test code = 03364-0) Nonreactive Nonreactive Lab Interpretation (test cod e = 98196-3) Normal [facility] OR RUDY ONLY - MTN3263-42-61 05:24:04* Test Item Value Reference Range Interpretation Comme nts RPR (Qualitative) (test code = 66805-9) Nonreactive Nonreactive Lab Interpretation (test cod e = 97474-7) Normal [facility] Surface Pgfxjxl9632-33-82 12:42:58 * Test Item Value Reference Range Interpretation Comme nts HBsAg Semi-Quantitative (rose t code = 5195-3) 0.05 Negative [facility] B Surface Wzprfwt5845-68-78 12:42:58 * Test Item Value Reference Range Interpretation Comme nts HBsAg Semi-Quantitative (rose t code = 5195-3) 0.05 [facility] Rvscru1994-21-57 08:25:13* Test Item Value Reference Range Interpretation Comme nts HIV Semi-quantitative (test code = 15868-4) 0.10 Negative AUBRIE (test code = AUBRIE) Non-reactive for HIV-1 antigen and HIV-1/HIV-2 antibodies. ?No laboratory evidence of HIV infection. ?Repeat in 2-4 weeks if acute HIV infection is suspected. [facility] with Zavunf0029-23-62 08:25:13* Test Item Value Reference Range Interpretation Comme nts HIV Semi-quantitative (test code = 80575-7) 0.10 Negative AUBRIE (test code = AUBRIE) Non-reactive for HIV-1 antigen and HIV-1/HIV-2 antibodies. ?No laboratory evidence of HIV infection. ?Repeat in 2-4 weeks if acute HIV infection is suspected. [facility] Vcewnmxvozaj2669-98-37 07:22:11* Test Item Value Reference Range Interpretation [...] 32.1 g/dL 31.6-35.1 RDW-SD (test code = 57279-6) 40.7 fL 39.0-49.9 RDW-CV (test code = 788-0) 13.3 % 12.0-15.5 PLT (test code = 777-3) 309 See_Comment [Automated messa ge] The system which generated this result transmitted reference range: 166 - 358 10*3/?L. The reference range was not used to interpret this result as normal/abnormal. MPV (test code = 68485-6) 10.9 fL 9.5-12.9 NRBC/100 WBC (test code = 3852901782) 0.0 See_Comment [Automated me ssage] The system which generated this result transmitted reference range: 0.0 - 10.0 /100 WBCs. The reference range was not used to interpret this result as normal/abnormal. NRBC x10^3 (test code = 5005045613) See_Comment [Automated messa ge] The system which generated this result transmitted reference range: 10*3/?L. The reference range was not used to interpret this result as normal/abnormal. GRAN MAT (NEUT) % (test code = 770-8) 70.6 % IMM GRAN % (test code = 4092644049) 0.40 % LYMPH % (test code = 736-9) 21.3 % MONO % (test code = 5905-5) 7.1 % EOS % (test code = 713-8) 0.3 % BASO % (test code = 706-2) 0.3 % GRAN MAT x10^3(ANC) (test code = 5366327556) 8.12 10*3/uL 1.88-7.09 H IMM GRAN x10^3 (test code = 9187633614) 0.05 10*3/uL 0.00-0.06 LYMPH x10^3 (test code = 731-0) 2.44 10*3/uL 1.32-3.29 MONO x10^3 (test code = 742-7) 0.81 10*3/uL 0.33-0.92 EOS x10^3 (test code = 711-2) 0.03 10*3/uL 0.03-0.39 BASO x10^3 (test code = 704-7) 0.03 10*3/uL 0.01-0.07 Lab Interpretation (test code = 66281-7) Abnormal [facility] with Jhvlkiptxaht3743-89-11 07:22:11* Test Item Value Reference Range Interpretation [...] 32.1 g/dL 31.6-35.1 RDW-SD (test code = 03255-0) 40.7 fL 39.0-49.9 RDW-CV (test code = 788-0) 13.3 % 12.0-15.5 PLT (test code = 777-3) 309 See_Comment [Automated messa ge] The system which generated this result transmitted reference range: 166 - 358 10*3/?L. The reference range was not used to interpret this result as normal/abnormal. MPV (test code = 47020-8) 10.9 fL 9.5-12.9 NRBC/100 WBC (test code = 0624887025) 0.0 See_Comment [Automated [place] ssage] The system which generated this result transmitted reference range: 0.0 - 10.0 /100 WBCs. The reference range was not used to interpret this result as normal/abnormal. NRBC x10^3 (test code = 0391811943) See_Comment [Automated messa ge] The system which generated this result transmitted reference range: 10*3/?L. The reference range was not used to interpret this result as normal/abnormal. GRAN MAT (NEUT) % (test code = 770-8) 70.6 % IMM GRAN % (test code = 4880586351) 0.40 % LYMPH % (test code = 736-9) 21.3 % MONO % (test code = 5905-5) 7.1 % EOS % (test code = 713-8) 0.3 % BASO % (test code = 706-2) 0.3 % GRAN MAT x10^3(ANC) (test code = 7996349683) 8.12 10*3/uL 1.88-7.09 H IMM GRAN x10^3 (test code = 2057522859) 0.05 10*3/uL 0.00-0.06 LYMPH x10^3 (test code = 731-0) 2.44 10*3/uL 1.32-3.29 MONO x10^3 (test code = 742-7) 0.81 10*3/uL 0.33-0.92 EOS x10^3 (test code = 711-2) 0.03 10*3/uL 0.03-0.39 BASO x10^3 (test code = 704-7) 0.03 10*3/uL 0.01-0.07 Lab Interpretation (test code = 43815-0) [facility] - [facility]CE AVQC7157-62-14 07:19:00 * Test Item Value Reference Range Interpretation Comme nts ABO & RH (test code = 20) AB Positive IAT (test code = 1185) Negative [facility] - [facility]CE RYPG4182-93-59 07:19:00 * Test Item Value Reference Range Interpretation Comme nts ABO & RH (test code = 20) AB Positive IAT (test code = 1185) [facility] Dxoybhg8691-85-40 19:25:00* Test Item Value Reference Range Interpretation [...] = 3257) n/a Negative - [facility]ati ve [facility]CIFIC NDCBBGZ3473-53-05 20:32:00* Test Item Value Reference Range Interpretation [...] = 3257) n/a Negative - Negati ve [facility] URINALYSIS W/O SPECIFIC DRHBJIV0075-86-95 20:40:00* Test Item Value Reference Range Interpretation [...] internal controls Lab Interpretation (test code = 59188-2) Abnormal [facility] URINALYSIS W/O SPECIFIC ICNSECI1235-86-79 19:27:00* Test Item Value Reference Range Interpretation [...] = 3257) n/a Negative - Negati ve [facility] URINALYSIS W/O SPECIFIC BVYVKMH6230-18-96 18:08:00* Test Item Value Reference Range Interpretation [...] = 3257) n/a Negative - Negati ve [facility] URINALYSIS W/O SPECIFIC YDWXNJH7732-43-39 18:41:00* Test Item Value Reference Range Interpretation [...] = 3257) n/a Negative - Negati ve [facility] URINALYSIS W/O SPECIFIC DSMBVGF4056-64-96 19:55:00* Test Item Value Reference Range Interpretation [...] = 3257) n/a Negative - Negati ve [facility] URINALYSIS W/O SPECIFIC MWHVSAU9061-00-26 16:31:00* Test Item Value Reference Range Interpretation [...] = 3257) n/a Negative - Negati ve [facility] URINALYSIS W/O SPECIFIC JRIZKEP5434-20-98 15:55:00* Test Item Value Reference Range Interpretation [...] = 3257) n/a Negative - Negati ve [facility] URINALYSIS W/O SPECIFIC VAUCSFQ3852-91-02 14:07:00* Test Item Value Reference Range Interpretation [...] = 3257) n/a Negative - Negati ve [facility] URINALYSIS W/O SPECIFIC DPGBUTG0762-36-06 20:45:00* Test Item Value Reference Range Interpretation [...] = 3257) n/a Negative - Negati ve [facility] URINALYSIS W/O SPECIFIC XSBJYGJ5661-19-17 20:07:00* Test Item Value Reference Range Interpretation [...] = 3257) n/a Negative - Negati ve [facility] LOOM2312-64-29 20:06:00* Test Item Value Reference Range Interpretation Comme nts POCT PREG (test code = 1605) Positive On board controls acceptable with C Line (test code = 3574) Yes POCT PREG LOT # (test code = 3575) POCT PREG TEST DATE ( test code = 3576) [facility] - VAGINAL PATHOGENS BY NUCLEIC ACID UHQJIOQ6853-12-01 17:15:00* Test Item Value Reference Range Interpretation Comme nts Trichomonas vaginalis (test code = 2773078157) Negative Negative Zakia species (test code = 5785451829) Negative Negative Zakia glabrata (test code = 33472-3) Negative Negative Bacterial Vaginosis (test code = 75745-0) Positive Negative A AUBRIE (test code = [...] the clinician. Lab Interpretation (test code = 52163-5) Abnormal [facility] - VAGINAL PATHOGENS BY NUCLEIC ACID ZJAAUVW4555-08-57 17:15:00* Test Item Value Reference Range Interpretation Comme nts Trichomonas vaginalis (test code = 7328744670) Negative Negative Zakia species (test code = 6706186987) Negative Negative Zakia glabrata (test code = 70414-6) Negative Negative Bacterial Vaginosis (test code = 48456-2) Positive Negative A AUBRIE (test code = [...] the clinician. Lab Interpretation (test code = 74772-8) [facility]normal [facility] ILIWROE1615-78-29 13:53:00* Test Item Value Reference Range Interpretation Comme nts URINE CULTURE (test code = 630-4) 10,000 - 100,000 CFU/mL mixed aerobic organisms - suggests endogenous microbial contamination [facility] XBGDVAQ1898-75-94 13:53:00* Test Item Value Reference Range Interpretation Comme nts URINE CULTURE (test code = 630-4) 10,000 - 100,000 CFU/mL mixed aerobic organisms - suggests endogenous microbial contamination [facility] 1&2, VZV BY HCA4593-03-33 21:13:00* Test Item Value Reference Range Interpretation Comme nts Herpes simplex virus type 1 Nucleic Acid (test code = 6582764680) Negative Negative Herpes simplex virus type 2 Nucleic Acid (test code = 9940563006) Positive Negative A Varicella zoster virus Nucle ic Acid (test code = 57507-8) Negative Negative Lab Interpretation (test cod e = 56699-8) [facility]normal [facility]&2, VZV BY DKW3439-85-72 21:13:00* Test Item Value Reference Range Interpretation Comme nts Herpes simplex virus type 1 Nucleic Acid (test code = 9908236587) Negative Negative Herpes simplex virus type 2 Nucleic Acid (test code = 8449295463) Positive Negative A Varicella zoster virus Nucle ic Acid (test code = 76731-1) Negative Negative Lab Interpretation (test cod e = 57149-7) Abnormal [facility] & CHLAMYDIA AMPLIFIED JYIDQ2022-50-33 20:19:00* Test Item Value Reference Range Interpretation Comme nts C. trachomatis Nucleic Acid (test code = 70826-4) Negative Negative N. gonorrhoeae Nucleic Acid (test code = 75828-6) Negative Negative AUBRIE (test code = AUBRIE) [...] gonorrhoeae NAAT. Lab Interpretation (test code = 62961-1) Normal [facility] CHLAMYDIA AMPLIFIED [id number] 20:19:00* Test Item Value Reference Range Interpretation Comme nts C. trachomatis Nucleic Acid (test code = 40827-6) Negative Negative N. gonorrhoeae Nucleic Acid (test code = 62905-6) Negative Negative AUBRIE (test code = AUBRIE) [...] gonorrhoeae NAAT. Lab Interpretation (test code = 39560-5) Normal [facility] Notes Date/Time Note Provider Source 2023-07-09 12:53:00 EQyG4vvJUXd4pGaXoH9L lF6/x+L+Ooz8rf qOLHAMLz8y+dB4tpo4RJFGfI6VqvAA0411 -03-30T12:53:00 Regardiny/f severe abdominal pain, when having bowel movement there was large amount of blood x today----- Message from Ashley Rodas sent at 07/09/2023 12:53 PM CDT -----Meena Stevenson is a 23 year old female 25212-5Blmmqczix encounter DujeZR1075-24-13Z95:53:40Telephone encounter NoteTXT1.2.840.966294.1.13.104.2.7 .2.047468|[id number] for patient nfrz46819-7TocgWKDFRWFOTRUZucshert d C-CDA narrative gbkd616011872Exugi Hager RNUT[address] SjgzLbcxkjkvlCqrbcwnbsFDPT05267248 78VNDNYQLRXQJMQPRPZNWEZP7796-66-24 T12:53:401.2.840.741586.1.72.3.15| 1.2.840.202129.1.13.104.2.7.2.7278 [id number] Domonique Lerma RN [facility] 2023-07-09 12:53:00 mYDMOhvPQMjQNb9OtXQ1 9wh3NFPXrzwsyp RwQs1lmzMOtrc5r01FV8+mmHYJk3uw3467 -03-30T12:53:00 Adult Triage AssessmentLast Clinic Visit: 05/06/2023-Nexplanon insertionPrimary Symptom: severe abdominal pain, large amount of blood in the BM, Had BM x 2 this morningOnset / Duration: 0800Location / Description: abdominal area, rectal bleedingPain / Severity: ssociated Symptoms: dizzy, getting hotFever / Method: "I don't think so"Hydration: as usualTreatment so far: noneEffect on ADL's: significant changeLMP: N/APre-existing condition / Immunocompromised: noneReason for Disposition[1] Constant abdominal pain AND [2] present > 2 hoursProtocols used: Rectal Ahiveelu-FJRDN-RYNck Meena," I am having severe abdominal pain and bleeding when I had a BM"Advised her to have someone take her to the closest ER. She agreed to plan of care. 30250-4Sbrpnumfn encounter XgkzJA7009-72-08P72:11:02Telephone encounter NoteTXT1.2.840.708765.1.13.104.2.7 .2.098691|[id number] for patient saqr14501-0VlftEELWBJJIKJELuvfapwo d C-CDA narrative textUT[address] UtfvIzph[id number] 22BIOLXBNINYKRKRHSQNVUIU9743-38-17 T13:11:021.2.840.082546.1.72.3.15| 1.2.840.677335.1.13.104.2.7.2.7278 [id number] [facility] 2022-12-17 11:15:00 CrUwXn3/PtLPB5Li6vID BlMzqrVM/8n+GA /BbamQ/GsNSPMYnuLiidjkKwLo8MFJ9655 -09-08T11:15:00 Age: 22 year oldGA: 25w0d 1. [...] 3 weeks or PRNVivian L MD Paty 90252-8Buzdzvdj zegfIM9111-67-70B20:55:11Progress noteTXT1.2.840.220242.1.13.104.2.7 .2.772499|[id number] for patient okbf11839-9TpshMKOLDMLRPU[address] [place], [place] [id number] 22SOKPRWHMUXOPIBPULKVLSH1400-46-41 T11:55:111.2.840.042326.1.72.3.15| 1.2.840.139000.1.13.104.2.7.2.7278 [id number] [facility] 2022-11-19 10:45:00 BbtU5O/nYqoXNK+N6UfJ rji6S3Q0ATvPn6 /LtBCO2XdxxgXgJpZ6LiaB8kXKUGrf1457 -08-11T10:45:00 Age: 22 year oldGA: 21w0d 1. Encounter for supervision of other normal in second trimester2. 21 weeks gestation of - no concerns- No obvious anomalies on anatomy jmrs0ee trimester teaching given- POCT URINALYSIS W/O SPECIFIC GRAVITYROB in 4 weeks or PRNVivian L MD Paty 72530-7Xymucmmo pjjtGE7693-82-52P77:58:14Progress noteTXT1.2.840.995993.1.13.104.2.7 .2.058482|[id number] for patient upvr77686-5JfdkLSKEZGRXSB[address] [id number] 73XPHPFCMFQPEBAMKUEZSOUJ1075-60-43 T18:58:141.2.840.192244.1.72.3.15| 1.2.840.500144.1.13.104.2.7.2.7278 [id number] [facility] 2022-11-12 13:30:00 34II4eGZ5BYlzJD4Sa/Q j2+y/T7Su87Srk 9MO1+q0v4SCegMK0eQp7wfwiZBynMw7537 -08-04T13:30:00 Reviewed. Cephalic presentation. JILL wnl; Placenta posterior LT lateral without previa; 47% tile EFW; Cervix 4.47 cm, wnl.Emma Hu NP 11/14/2022 12:26 PM 79432-3Rpgpwrep fcvmNC3010-81-82O55:26:27Progress noteTXT1.2.840.293874.1.13.104.2.7 .2.515157|[id number] for patient gxey18789-3MboyTUKGY-UYEDLNAGK NURSE CLOTH SECONDS SORTER MIDLEVEL PROVIDERCNM-CERTIFIED NURSE CLOTH SECONDS SORTER MIDLEVEL PROVIDER[address] UxlbJllepawxeLofpsklbmKMOW61331377 20TOUOJOQRJQTLNSNHFXCJJG2023-90-34 T12:26:271.2.840.261048.1.72.3.15| 1.2.840.144030.1.13.104.2.7.2.7278 [id number] CNM-CERTIFIED NURSE [employer] MIDLEVEL PROVIDER [facility]
[2023-07-12] MEDS ORDERED: ONDANSETRON 4 MG/2 ML VIAL ONE (05:14)
[2023-07-12] MEDS ORDERED: NA CHLORIDE 0.9% 1,000 ML ONE (05:15)
[2023-07-12] MEDS ORDERED: KETOROLAC 30 MG/ML INJ ONE (05:15)
[2023-07-12] MEDS ORDERED: FAMOTIDINE 20 MG/2 ML VIAL IV ONE (05:15)
[2023-07-12] MEDS ORDERED: MORPHINE 4 MG/ML SYR ONE (05:15)
[2023-07-12 05:48] LABS: Absolute Eosinophils 0.2 K/uL (0-0.5); Absolute Lymphocytes (CBC) 2.7 K/uL (0.7-4.9); Absolute Monocytes 0.7 K/uL (0.1-1.3); Absolute Neutrophil 6.8 K/uL (1.8-8.0); Basophils % 0.3 % (0-1.3); Eosinophils % 1.8 % (0-4.4); Hematocrit 36.1 % (36.0-45.0); Hemoglobin 12.1 g/dL (12.0-15.0); Lymphocytes % 25.9 % (15.3-44.8); MCH 26.5 pg (27.0-35.0); MCHC 33.4 g/dL (32.0-36.0); MCV 79.5 fL (80-100); MPV 7.7 fL (7.6-11.3); Monocytes % 6.9 % (3.3-12.3); Neutrophils % 65.1 % (41.7-73.7); Nucleated Red Blood Cells % 0.1 % (0-0); Platelets 397 thou/uL (152-406); RBC Red Blood Cell Count 4.54 M/uL (3.86-4.86)
[2023-07-12 05:51] LABS: Specific Gravity > 1.030 (1.005-1.030)
[2023-07-12 05:53] LABS: Specific Gravity > 1.030 (1.005-1.030); Urine Bacteria <20 /HPF (<20); Urine Bilirubin NEGATIVE (Negative); Urine Blood Negative (Negative); Urine Clarity Turbid (Clear); Urine Color Light-Yellow (Yellow); Urine Culture Reflex Order REFLEXED; Urine Glucose NEGATIVE (Negative); Urine Ketones NEGATIVE (Negative); Urine Microscopic Reflex YN ORDER UMIC; Urine Mucus 2+ /HPF (None Seen); Urine Nitrite NEGATIVE (Negative); Urine Protein TRACE (Negative); Urine RBC <5 /HPF (None Seen); Urine Urobilinogen Normal (Normal); Urine pH 5.5 (5.0-7.0)
[2023-07-12 06:04] LABS: Albumin 3.2 g/dL (3.4-5.0); Albumin/Globulin Ratio 0.8 (1.1-1.8); Anion Gap 7.5 mEq/L (5.0-15.0); Bilirubin Total 0.2 mg/dL (0.2-1.0); Globulin 4.2 g/dL (2.3-3.5); Potassium 3.5 mEq/L (3.5-5.1); Protein, Total 7.4 g/dL (6.4-8.2)
--- NOTE | 2023-07-12 07:05 | RAD REPORT ---
EXAM DESCRIPTION: CTAbdomen Pelvis W Contrast - 07/12/2023 6:58 am CLINICAL HISTORY: ABD PAIN COMPARISON: Abdomen Pelvis W Contrast dated 07/09/2023 TECHNIQUE: CT of the abdomen and pelvis was performed with IV contrast. All CT scans are performed using dose optimization technique as appropriate and may include automated exposure control or mA/KV adjustment according to patient size. FINDINGS: Lower chest: No acute abnormality. Liver: No acute abnormality or suspicious lesions. Biliary: No biliary ductal dilatation. Stomach: No significant focal abnormality. Duodenum: No significant focal abnormality. Pancreas: No significant abnormality. Spleen: No significant abnormality. Adrenal: No suspicious lesions. Kidney/ureter: No hydronephrosis. No renal calculi. Retroperitoneum: No retroperitoneal adenopathy. Vascular: No aneurysm. Bowel: Interval appendectomy.. Peritoneum: No ascites or free air. Small fat containing umbilical hernia. Bladder: Grossly unremarkable. Reproductive: No adnexal masses. Bones: No acute fracture. Other: Gas within the right abdominal musculature and abdominal wall likely from recent laparoscopic appendectomy. IMPRESSION: Interval appendectomy. Gas within the right abdominal wall musculature and subcutaneous fat likely from recent laparoscopic surgery. No complicating features. No bowel obstruction or absces s.
--- NOTE | 2023-07-12 07:38 | EDPHYS ---
Physician Documentation [facility] Name: Meena Owens Age: 23 yrs Sex: Female : 2000 Arrival Date: 07/12/2023 Time: 04:54 Bed 19 Private MD: ED Physician Charly Richter HPI: 07/11 05:00 This 23 yrs old Female presents to ER via Unassigned with complaints of sp4 abdominal pain after appendectomy. 05:03 On 07/09/2023 patient had Procedure Performed: Laparoscopic appendectomy for acute non sp4 perforated appendicitis. . Historical: - Allergies: 05:12 No Known Allergies; pf1 - PSHx: 05:12 section; Appendectomy; pf1 - Immunization history:: Adult Immunizations up to date, 3 doses of Moderna Last tetanus immunization: < 5 years ago Flu vaccine is up to date. - Infectious Disease History:: Denies. - Family history:: not pertinent. - Social history:: Smoking status: Patient denies any tobacco usage or history of. Patient uses alcohol, only on a social basis. Patient/guardian denies using street drugs. ROS: 05:03 Constitutional: Negative for fever, chills, and weight loss, Positive for lower sp4 abdominal pain 05:03 All other systems are negative, Exam: 05:03 Constitutional: This is a well developed, well nourished patient who is awake, alert, sp4 and in no acute distress. Head/Face: Normocephalic, atraumatic. Eyes: Pupils equal round and reactive to light, extra-ocular motions intact. Lids and lashes normal. Conjunctiva and sclera are not injected. Cornea within normal limits. Periorbital areas with no swelling, redness, or edema. ENT: Nares patent. No nasal discharge, no septal abnormalities noted. Tympanic membranes are normal and external auditory canals are clear. Oropharynx with no redness, swelling, or masses, exudates, or evidence of obstruction, uvula midline. Mucous membranes moist. Neck: Trachea midline, no thyromegaly or masses palpated, and no cervical lymphadenopathy. Supple, full range of motion without nuchal rigidity, or vertebral point tenderness. Chest/axilla: Normal chest wall appearance and motion. Nontender with no deformity. No lesions are appreciated. Cardiovascular: Regular rate and rhythm with a normal S1 and S2. No gallops, murmurs, or rubs. Normal PMI, no JVD. No pulse deficits. Respiratory: Lungs have equal breath sounds bilaterally, clear to auscultation and percussion. No rales, rhonchi or wheezes noted. No increased work of breathing, no retractions or nasal flaring. Abdomen/GI: Soft, with normal bowel sounds. No distension or tympany. No guarding or rebound. Post operative incisions are C/D/I, Diffuse tenderness present Back: No spinal tenderness. No costovertebral tenderness. Skin: Warm, dry with normal turgor. Normal color with no rashes, no lesions, and no evidence of cellulitis. MS/ Extremity: Pulses equal, no cyanosis. Neurovascular intact. Full, normal range of motion. Neuro: Awake and alert, GCS 15, oriented to person, place, time, and situation. Cranial nerves II-XII grossly intact. Motor strength 5/5 in all extremities. Sensory grossly intact. Psych: Awake, alert, with orientation to person, place and time. Behavior, mood, and affect are within normal limits Vital Signs: 05:01 BP 117 / 73; Pulse 64; Resp 18; Temp 98.2; Pulse Ox 100% on R/A; Weight 77.11 kg; pf1 Height 5 ft. 2 in. ; Pain 5/10; 06:00 BP 114 / 68; Pulse 67; Resp 16; Pulse Ox 98% on R/A; Pain 3/10; pf1 07:30 BP 112 / 70; Pulse 70; Resp 18; Pulse Ox 99% on R/A; rs5 05:01 Body Mass Index 31.09 (77.11 kg, 157.48 cm) pf1 05:01 Pain Scale: Adult pf1 06:00 Pain Scale: Adult pf1 [place] Coma Score: 05:03 Eye Response: spontaneous(4). Motor Response: obeys commands(6). Verbal Response: sp4 oriented(5). Total: 15. MDM: 05:06 Patient medically screened. sp4 06:43 Differential Diagnosis altered mental status, sepsis, flu, Postoperative complications. sp4 Data reviewed: vital signs, nurses notes, EMS record, lab test result(s), radiologic studies, CT scan. Transition of care: After a detail discussion of the patient's case, care is transferred to Charly Richter MD. ED course: Improved after medications. 07:11 ED course: Patient signed out to me pending CT scan, patient with previous history of ec2 recent appendectomy. CT imaging shows no evidence of significant postoperative complication. CBC is reassuring, metabolic profile reassuring, urine is noninfectious appearing. Lipase within normal ranges. . 07:36 ED course: On reassessment patient with no recurrence of symptoms. Will discharge home. ec2 Return precautions given.. 07/11 05:01 Order name: CBC with Diff; Complete Time: 06:42 sp4 07/11 05:01 Order name: CMP; Complete Time: 06:42 sp4 07/11 05:01 Order name: Lipase; Complete Time: 06:42 sp4 07/11 05:01 Order name: Test, Urine; Complete Time: 06:42 sp4 07/11 05:01 Order name: Urinalysis w/ reflexes; Complete Time: 06:42 sp4 07/11 06:17 Order name: Urine Culture EDCO 07/11 05:01 Order name: CT Abd/Pelvis - IV Contrast Only; Complete Time: 07:10 sp4 07/11 05:01 Order name: IV Saline Lock; Complete Time: 05:21 sp4 07/11 05:01 Order name: Labs collected and sent; Complete Time: 05:21 sp4 Administered Medications: 05:30 Drug: NS 0.9% IV 1000 ml IV at 1 bolus Per protocol; 1000 mL bolus Route: IV; Rate: 1 pf1 bolus; Site: left antecubital; 06:33 Follow up: Response: No adverse reaction; Marked relief of symptoms; IV Status: pf1 Completed infusion; IV Intake: 1000ml 05:30 Drug: Famotidine IVP 20 mg IVP once; dilute with 10 mL 0.9% NaCl; give over 2 minutes pf1 Route: IVP; Site: left antecubital; 06:30 Follow up: Response: No adverse reaction; Marked relief of symptoms; Pain is decreased pf1 05:30 Drug: Ondansetron IVP 4 mg IVP once; over 2 minutes Route: IVP; Site: left antecubital; pf1 06:30 Follow up: Response: No adverse reaction; Marked relief of symptoms pf1 05:30 Drug: morphine IVP or IV 4 mg IVP once over 4 mins Route: IVP; Infused Over: 4 mins; pf1 Site: left antecubital; 06:30 Follow up: Response: No adverse reaction; Marked relief of symptoms; Pain is decreased; pf1 RASS: Alert and Calm (0) 06:06 Drug: TORadol - Ketorolac IVP 15 mg IVP once Route: IVP; Site: left antecubital; pf1 06:34 Follow up: Response: No adverse reaction; Marked relief of symptoms; Pain is decreased pf1 Disposition Summary: 07/12/23 07:37 Discharge Ordered Notes: Location: Home ec2 Condition: Stable ec2 Diagnosis - Post Operative Pain ec2 Followup: ec2 - With: Private Physician - When: - Reason: Re-evaluation by your physician Discharge Instructions: - Discharge Summary Sheet ec2 - Abdominal Pain, Adult, [id number] ec2 Forms: - Family Work Release ec2 - Medication Reconciliation Form ec2 - Thank You Letter ec2 - Antibiotic Education ec2 - Prescription Opioid Use ec2 - Patient Portal Instructions ec2 - Leadership Thank You Letter ec2 Signatures: Dispatcher [employer] Susy Vo, RN RN pf1 Shun Posada MD MD sp4 Charly Richter MD MD ec2
--- NOTE | 2023-07-12 07:38 | ER ---
Nurse's Notes [facility] Name: Meena Owens Age: 23 yrs Sex: Female : 2000 Arrival Date: 07/12/2023 Time: 04:54 Bed 19 Private MD: Diagnosis: Post Operative Pain Presentation: 07/11 05:01 Chief complaint: Patient states: generalized abdominal pain of 5,onset 2 days, S/P pf1 appendectomy. Patient stated [employer] was setting up to breast pump, became dizzy, had a syncopal episode, a family member was able to assist patient to the floor. Patient stated had an appendectomy 2 days ago. Coronavirus screen: Client denies travel out of the [place] in the last 14 days. At this time, the client does not indicate any symptoms associated with coronavirus-19. Ebola Screen: Patient negative for fever greater than or equal to 101.5 degrees Fahrenheit, and additional compatible Ebola Virus Disease symptoms. Ebola Screen: No symptoms or risks identified at this time. Initial Sepsis Screen: Does the patient meet any 2 criteria? No. Patient's initial sepsis screen is negative. Does the patient have a suspected source of infection? No. Patient's initial sepsis screen is negative. Risk Assessment: Do you want to hurt yourself or someone else? Patient reports no desire to harm self or others. Onset of symptoms was July 12, 2023. 05:01 Method Of Arrival: EMS: [facility] pf1 05:01 Acuity: ARTURO 3 pf1 Triage Assessment: 05:08 General: Appears in no apparent distress. comfortable, well groomed, well developed, pf1 Behavior is calm, cooperative, appropriate for age, quiet. Pain: Complains of pain in abdomen Pain currently is 5 out of 10 on a pain scale. Pain began 2-3 days ago. EENT: No deficits noted. No signs and/or symptoms were reported regarding the EENT system. Neuro: Level of Consciousness is awake, alert, obeys commands, Oriented to person, place, time, situation, Reports dizziness, a syncopal episode [employer]. Cardiovascular: Capillary refill < 3 seconds Patient's skin is warm and dry. Respiratory: No deficits noted. Airway is patent Respiratory effort is even, unlabored, Respiratory pattern is regular, symmetrical, Breath sounds are clear bilaterally. GI: Abdomen is round non-distended, Bowel sounds present X 4 quads. Abd is soft Abdomen is tender to palpation in right upper quadrant, left upper quadrant, right lower quadrant and left lower quadrant Reports lower abdominal pain, upper abdominal pain. : No deficits noted. No signs and/or symptoms were reported regarding the genitourinary system. Musculoskeletal: No deficits noted. No signs and/or symptoms reported regarding the musculoskeletal system. Historical: - Allergies: 05:12 No Known Allergies; pf1 - PSHx: 05:12 section; Appendectomy; pf1 - Immunization history:: Adult Immunizations up to date, 3 doses of Moderna Last tetanus immunization: < 5 years ago Flu vaccine is up to date. - Infectious Disease History:: Denies. - Family history:: not pertinent. - Social history:: Smoking status: Patient denies any tobacco usage or history of. Patient uses alcohol, only on a social basis. Patient/guardian denies using street drugs. Screenin:10 [facility] ED Fall Risk Assessment (Adult) History of falling in the last 3 months, pf1 including since admission No falls in past 3 months (0 pts) Confusion or Disorientation No (0 pts) Intoxicated or Sedated No (0 pts) Impaired Gait No (0 pts) Mobility Assist Device Used No (0 pt) Altered Elimination No (0 pt) Score/Fall Risk Level 0 - 2 = Low Risk Oriented to surroundings, Maintained a safe environment, Educated pt \T\ family on fall prevention, incl call for assistance when getting out of bed, Assessed \T\ reinforced patient's understanding of fall precautions, Provided non-skid footwear, Hourly rounding (assess needs \T\ fall precautionary measures) done, Used ambulatory aids as needed (educated on \T\ assisted with), Used gait belt as appropriate. Abuse screen: Denies threats or abuse. Nutritional screening: No deficits noted. Tuberculosis screening: No symptoms or risk factors identified. Assessment: 05:10 Reassessment: see triage assessment. pf1 06:00 Reassessment: Patient appears in no apparent distress at this time. Patient and/or pf1 family updated on plan of care and expected duration. Pain level reassessed. Patient is alert, oriented x 3, equal unlabored respirations, skin warm/dry/pink. Patient states symptoms have improved. 06:35 Reassessment: Patient appears in no apparent distress at this time. Patient and/or pf1 family updated on plan of care and expected duration. Pain level reassessed. Patient is alert, oriented x 3, equal unlabored respirations, skin warm/dry/pink. Patient states feeling better. Patient states symptoms have improved. 06:59 Reassessment: Patient appears in no apparent distress at this time. Patient and/or pf1 family updated on plan of care and expected duration. Pain level reassessed. Patient is alert, oriented x 3, equal unlabored respirations, skin warm/dry/pink. Patient states feeling better. Patient states symptoms have improved. 07:35 General: Appears in no apparent distress. comfortable, Behavior is calm, cooperative. rs5 Pain: Denies pain. Neuro: Level of Consciousness is awake, alert, obeys commands, Oriented to person, place, time, situation. Cardiovascular: Patient's skin is warm and dry. Rhythm is regular. Respiratory: Airway is patent Respiratory effort is even, unlabored, Respiratory pattern is regular, symmetrical. GI: Abdomen is round non-distended. : No signs and/or symptoms were reported regarding the genitourinary system. EENT: No signs and/or symptoms were reported regarding the EENT system. Derm: Skin is intact, Skin is pink, warm \T\ dry. Musculoskeletal: Circulation, motion, and sensation intact. Range of motion: intact in all extremities. Vital Signs: 05:01 BP 117 / 73; Pulse 64; Resp 18; Temp 98.2; Pulse Ox 100% on R/A; Weight 77.11 kg; pf1 Height 5 ft. 2 in. ; Pain 5/10; 06:00 BP 114 / 68; Pulse 67; Resp 16; Pulse Ox 98% on R/A; Pain 3/10; pf1 07:30 BP 112 / 70; Pulse 70; Resp 18; Pulse Ox 99% on R/A; rs5 05:01 Body Mass Index 31.09 (77.11 kg, 157.48 cm) pf1 05:01 Pain Scale: Adult pf1 06:00 Pain Scale: Adult pf1 [place] Coma Score: 05:03 Eye Response: spontaneous(4). Motor Response: obeys commands(6). Verbal Response: sp4 oriented(5). Total: 15. ED Course: 04:58 Patient arrived in ED. wm 05:00 Shun Posada MD is Attending Physician. sp4 05:08 Triage completed. pf1 05:11 Arm band placed on right wrist. pf1 05:20 No provider procedures requiring assistance completed. Initial lab(s) drawn, by ED pf1 staff, sent to lab. Inserted saline lock: 22 gauge in left antecubital area, using aseptic technique. Blood collected. 05:21 CBC with Diff Sent. pf1 05:21 CMP Sent. pf1 05:21 Lipase Sent. pf1 05:30 Urine collected: clean catch specimen, clear, Amount Voided: 80mL. pf1 05:37 Test, Urine Sent. pf1 05:37 Urinalysis w/ reflexes Sent. pf1 06:06 Susy Harman RN is Primary Nurse. pf1 06:35 Urine Culture Sent. pf1 07:00 CT Abd/Pelvis - IV Contrast Only In Process Unspecified. EDMS 07:00 Report given to JACKIE Foster. pf1 07:10 Attending Physician role handed off by Shun Posada MD ec2 07:10 Charly Richter MD is Attending Physician. ec2 07:40 Patient has correct armband on for positive identification. Placed in gown. Bed in low rs5 position. Call light in reach. Side rails up X2. 07:40 IV discontinued, intact, bleeding controlled, No redness/swelling at site. Pressure rs5 dressing applied. Administered Medications: 05:30 Drug: NS 0.9% IV 1000 ml IV at 1 bolus Per protocol; 1000 mL bolus Route: IV; Rate: 1 pf1 bolus; Site: left antecubital; 06:33 Follow up: Response: No adverse reaction; Marked relief of symptoms; IV Status: pf1 Completed infusion; IV Intake: 1000ml 05:30 Drug: Famotidine IVP 20 mg IVP once; dilute with 10 mL 0.9% NaCl; give over 2 minutes pf1 Route: IVP; Site: left antecubital; 06:30 Follow up: Response: No adverse reaction; Marked relief of symptoms; Pain is decreased pf1 05:30 Drug: Ondansetron IVP 4 mg IVP once; over 2 minutes Route: IVP; Site: left antecubital; pf1 06:30 Follow up: Response: No adverse reaction; Marked relief of symptoms pf1 05:30 Drug: morphine IVP or IV 4 mg IVP once over 4 mins Route: IVP; Infused Over: 4 mins; pf1 Site: left antecubital; 06:30 Follow up: Response: No adverse reaction; Marked relief of symptoms; Pain is decreased; pf1 RASS: Alert and Calm (0) 06:06 Drug: TORadol - Ketorolac IVP 15 mg IVP once Route: IVP; Site: left antecubital; pf1 06:34 Follow up: Response: No adverse reaction; Marked relief of symptoms; Pain is decreased pf1 Medication: 07:40 VIS not applicable for this client. rs5 Intake: 06:33 IV: 1000ml; Total: 1000ml. pf1 Outcome: 07:37 Discharge ordered by . ec2 07:40 Discharged to home ambulatory, rs5 07:40 Condition: stable 07:40 Discharge instructions given to patient, family, Instructed on discharge instructions, follow up and referral plans. Demonstrated understanding of instructions, follow-up care, 07:45 Patient left the ED. rs5 Signatures: Dispatcher [employer] EDEmilia Glaser Pamala, RN RN pf1 Cristian Jiménez RN RN rs5 Shnu Posada MD MD sp4 Charly Richter MD MD ec2 Corrections: (The following items were deleted from the chart) 05:11 05:01 Chief complaint: Patient states: generalized abdominal pain of 5,onset 2 days, pf1 S/P appendectomy. Patient stated [employer] was setting up to breast pump, became dizzy, had a syncopal episode, a family member was able to assist patient to the floor. pf1
[2023-07-12 16:31] VITALS: TEMP 98.2
[2023-07-12 17:03] VITALS: BP 114/68; O2SAT 98
== END 2023-07-12 07:45 | disposition home or self-care (01) ==
LOC: ER 04:54
DX: G89.18 Other acute postprocedural pain (principal); Z98.890 Other specified postprocedural states
CPT/HCPCS: 96361; 87088; 85025; 81001; 87086; 36415; 81025; 83690; 80053; 74177; 96375; 96374; 99284; Q9967; J2405; J7030